=== PATIENT | female | born 1925 | race Caucasian/White ===

== ENCOUNTER 2016-10-18 01:22 | Emergency (ER) | payer OTHER ==
[~2016-10-18] VITALS: Ht 147.3 cm; Wt 39.7 kg
[~2016-10-18 01:22] MED LIST: ACET1TAB84 PO; AMLO-110 PO; CLR10 PO; CTP/1 PO; METR1GEL3 TOP; PARO1TAB27 PO; PRLSR20 PO
[2016-10-18 01:25] VITALS: TEMP 36.7; Ht 147.3 cm; Wt 39.7 kg
[2016-10-18] MEDS ORDERED: CEPHALEXIN 500MG HOME PACK 1 EA BTL PO ONE (02:00)
[2016-10-18] MEDS ORDERED: CEPH500C PO (02:22)
[2016-10-18] MEDS ORDERED: NORCO 5/325MG HOME PACK PO ONE (02:30)
--- NOTE | 2016-10-18 02:30 | EMERGENCY ROOM VISIT NOTE ---
ED Visit Note First contact with patient: 01:31 I saw the patient in conjunction with Fabricio Walls PA-C. I agree with his decision-making and treatment plan.
[2016-10-18 02:39] VITALS: BP 147/78; PULSE 73; O2SAT 96
--- NOTE | 2016-10-18 05:04 | EMERGENCY ROOM VISIT NOTE ---
History First contact with patient: :31 Chief Complaint: LEG PAIN,LEG INJURY Stated Complaint: SEVERE LEG PAIN,LARGE BUMP WITH WHITE PUSS History of Present Illness The patient is a 89 year old female who presents to the Emergency Room with complaints of leg pain for the past few hours. The patient is accompanied by her daughter, whom she lives with. The patient has been feeling well all day, but reported to her daughter that she is having some pain in her left ankle tonight. The ankle is reddened with a large white bump on the outside of the ankle area. The patient is usually healthy and is not diabetic. She has not had difficulty with ambulation. No falls or injuries. She has not had a fever. The patient states that her discomfort is currently a 5/10. Review of Systems More than 10 systems were reviewed and otherwise negative with the exception of history of present illness. Past Medical/Surgical History Medical Problems: (1) Chronic Kidney Disease, Unspecified (2) Esophageal Reflux (3) Headache (4) Open Wound Of Scalp (5) Rectal & Anal Hemorrhage (6) Rosacea (7) Sprain Lumbar Region (8) Varicose Vein Of Leg Nos Family History Diabetes mellitus Social History Smoking Status: Never Smoker Alcohol Use: none Housing Status: lives with family Occupation Status: unemployed Current/Historical Medications Scheduled Amlodipine (Norvasc), 5 MG PO DAILY Cephalexin Monohydrate (Keflex), 500 MG PO QID Clonidine Hcl (Catapres), 0.1 MG PO BID Loratadine (Claritin), 10 MG PO DAILY PRN Metronidazole Hcl (Metrogel), 1 APPLN TOP DAILY PRN Omeprazole (Prilosec), 20 MG PO DAILY Paroxetine (Paxil), 20 MG PO DAILY Scheduled PRN Acetaminophen (Tylenol Arthritis Ext Rel), 650 MG PO Q8H PRN for Pain Allergies Coded Allergies: Aspirin (Verified Allergy, Unknown, 09/18/15) ASA=NAUSEA NSAIDs (Verified Allergy, Unknown, `, 09/18/15) Physical Exam Vital Signs Date Time Temp Pulse Resp B/P (MAP) Pulse Ox O2 Delivery O2 Flow Rate FiO2 10/18/16 02:39 73 20 147/78 96 10/18/16 01:25 36.7 75 20 116/66 97 Room Air Pain Rating (0-10): 4.0 Physical Exam VITALS: Vitals are noted on the nurse's note and reviewed by myself. Vital signs stable. GENERAL: Well-developed, well-nourished, elderly female, who is in no acute distress and resting comfortably. Patient is cooperative with the examination. HEAD: Normocephalic atraumatic. HEART: Regular rate and rhythm with systolic murmur LUNGS: Clear to auscultation bilaterally without wheezes, rales or rhonchi. No retractions or accessory muscle use. SKIN: The skin was with an area of cellulitis along the lateral aspect of the distal left fibula measuring approximately 4 x 5 cm in dimension. There is a central abscess that appears fluctuant. The patient does have some tenderness along this distribution. There is no lymphangitic streaking. Neurovascular status is intact distally. This does not appear to involve the ankle joint itself. Medical Decision & Procedures Medications Administered Medications (Trade) Dose Ordered Sig/Kimmy Route Start Time Stop Time Status Last Admin Dose Admin Cephalexin Monohydrate (Keflex 500MG Home Pack) 1 homepack NOW ONCE PO 10/18/16 02:00 10/18/16 02:01 DC 10/18/16 02:09 1 HOMEPACK Acetaminophen/ Hydrocodone Bitart ([place] 5/325mg Home Pack) 1 homepack UD ONCE PO 10/18/16 02:30 10/18/16 02:31 DC 10/18/16 02:35 1 HOMEPACK ED Course Physical exam and history were performed. Nursing notes and EMR were reviewed. Patient appears to have a small abscess with surrounding cellulitis along the lateral aspect of the left lower leg. I discussed options of care with the patient, who is up-to-date on her tetanus. The skin was prepped with alcohol swabs. Utilizing ethyl chloride and an 18-gauge needle I was able to de-roof the abscess. This did cause purulent drainage to leave the wound, and this was collected for culture. No additional abscess was noted, and the patient tolerated this well. The wound was demarcated with a surgical marker and dressed with a bacitracin dressing. The case was discussed with my attending physician, Dr. White, who also independently evaluated the patient. We will start her on a course of Keflex as she has tolerated this in the past. I do recommend the patient have close follow-up with her primary care physician in the next few days for recheck. The patient does have a good support network at home, and does live with family. The patient and family were asked to return to the emergency department with any new, worsening, or concerning symptoms. I will give the patient a home pack of Vicodin for pain control tonight. The patient rated her discomfort a 4/10 at the time of departure. The chart was completed utilizing [employer] Voice Recognition Software. Grammatical errors, random word insertions, pronoun errors, and incomplete sentences are an occasional consequence of this system due to software limitations, ambient noise, and hardware issues. Any formal questions or concerns about the content, text, or information contained within the body of this dictation should be directly addressed to the provider for clarification. . Medical Decision Differential diagnosis: Etiologies such as cellulitis, abscess, MRSA infection, DVT, necrotizing fasciitis, dermatitis, drug eruption, as well as others were entertained.. Impression Primary Impression: Abscess or cellulitis of ankle Departure Information Dispostion Home / Self-Care Condition GOOD Prescriptions Cephalexin Monohydrate (Keflex) 500 Mg Cap 500 MG PO QID for 7 Days, #28 CAP Prov: Fabricio Walls PA-C 10/18/16 Forms HOME CARE DOCUMENTATION FORM, IMPORTANT VISIT INFORMATION Patient Instructions My [facility] Additional Instructions You were seen and evaluated today on an emergency basis only. This is not a substitute for, or an effort to provide, complete comprehensive medical care. It is not possible to recognize and treat all injuries or illnesses in a single emergency department visit. For this reason it is recommended that you followup with your primary care physician on Saturday for a recheck of your infection. Cephalexin(Keflex) 500mg: Take one pill 4 times daily for 7 days for your skin infection. All antibiotics can cause diarrhea. If this occurs and you feel worse or it does not resolve in 1-2 days follow up with your doctor or return to the Emergency Department as this could be signs of serious underlying problems. Any medication can cause an allergic reaction, stop the pills immediately and return to the ER for rash, hives, breathing difficulties, or swelling. If your infection worsens please seek additional medical care immediately. You are welcome to return to the emergency department anytime with new, worsening, or concerning symptoms.
[2017-01-08] MEDS ORDERED: LPR25 PO (18:32)
[2017-01-08] MEDS ORDERED: ZNT150 PO (18:32)
[2017-01-08] MEDS ORDERED: IPRASOL4 INH (18:32)
== END 2016-10-18 02:42 | disposition home or self-care (01) ==
LOC: C.EDB 01:23
DX: L03.116 Cellulitis of left lower limb (principal); N18.9 Chronic kidney disease, unspecified; K21.9 Gastro-esophageal reflux disease without esophagitis; Z79.899 Other long term (current) drug therapy; Z88.6 Allergy status to analgesic agent; Z88.8 Allergy status to other drugs, medicaments and biological substances; Z83.3 Family history of diabetes mellitus

== ENCOUNTER 2017-01-01 15:23 | Inpatient (IN) | payer OTHER ==
[~2017-01-01] VITALS: Ht 149.9 cm; Wt 38.2 kg
[2017-01-01] MEDS ORDERED: ALBUTEROL 0.083% NEBU SOLN 3 ML VIAL INH STA (15:45)
[2017-01-01 16:06] LABS: BASO % 0.1 %; BASO ABS # 0.01 K/uL (0-0.2); COMPLETE YES; EOS % 0.1 %; HEMATOCRIT 34.6 % (37-47); IG% 0.2 %; LYMPH % 10.2 %; LYMPH ABS # 0.88 K/uL (1.2-3.4); MEAN CELL VOLUME 91.5 fL (80-100); MEAN CORPUSCULAR HEMOGLOBIN 30.2 pg (25-34); MEAN CORPUSCULAR HGB CONC 32.9 g/dl (32-36); MEAN PLATELET VOLUME 9.7 fL (7.4-10.4); MONO % 7.2 %; NEUT % 82.2 %; PLATELET COUNT 253 K/uL (130-400); RED BLOOD COUNT 3.78 M/uL (4.2-5.4); WHITE BLOOD COUNT 8.64 K/uL (4.8-10.8)
--- NOTE | 2017-01-01 16:07 | DIAGNOSTIC IMAGING REPORT ---
CHEST ONE VIEW PORTABLE CLINICAL HISTORY: Respiratory distress. COMPARISON STUDY: 03/01/2010 FINDINGS: The heart is normal in size. There is mild vascular prominence without evidence of overt edema. There are subtle airspace opacities in the right infrahilar region. There are no significant pleural effusions.[ IMPRESSION: 1. Subtle airspace opacities within the right infrahilar region 2. Mild central vascular prominence. No evidence of edema. Electronically signed by: Farhat Armstrong M.D. 01/01/2017 4:06 PM Dictated Date/Time: 01/01/2017 4:04 PM
[2017-01-01 16:16] LABS: PROTHROMBIN TIME (PATIENT) 10.4 SECONDS (9.0-12.0)
[2017-01-01 16:24] LABS: BUN/CREATININE RATIO 14.7 (10-20); CALCIUM 9.3 mg/dl (8.5-10.1); CREATININE 1.3 mg/dl (0.60-1.20); POTASSIUM 3.5 mmol/L (3.5-5.1)
[2017-01-01 16:36] LABS: ALB/GLOB RATIO 0.9 (0.9-2)
[2017-01-01] MEDS ORDERED: ASPIRIN 81 MG CHEW PO STA (16:37)
[2017-01-01] MEDS ORDERED: LEVAQUIN 750MG / 150ML D5W IV STA (16:38)
[2017-01-01] MEDS ORDERED: CEFEPIME IV 1,000 MG in DEXTROSE 5% 100ML 100 ML IV STA (16:53)
[2017-01-01] MEDS ORDERED: *BENZOCAINE/MENTHOL 18 LOZ/1 BOX MT PRN (17:45)
[2017-01-01] MEDS ORDERED: ALUMINUM/MAGNESIUM/SIMETH (MAALOX MAX) 30 ML UDC PO PRN (17:45)
[2017-01-01] MEDS ORDERED: COUGH DROP (SUGAR FREE) LOZ 24 LOZ/1 BOX ONE (17:49)
--- NOTE | 2017-01-01 18:59 | History and Physical ---
History & Physical Date & Time of Service: Jan 01, 2017 at 18:27 Chief Complaint: Difficulty Breathing, Congested, Shakes Primary Care Physician: Myah Barnett M.D. History of Present Illness Source: patient, family This is an 89 year old female with a PMH of HTN, CKD stage 3, depression/anxiety , dementia, GERD presents with acute shortness of breath. As per daughter, who is at bedside, patient was in her usual state of health yesterday (12/31) with no issues to note. She went to sleep without a problem. Woke up this morning with significant chest congestion and cough. As per daughter, she has been afebrile. Does not have issues with swallowing at home. Though there is some underlying dementia, she is fairly independent; performs ADLs. Was seen with Dr. Hidalgo today (01/01) as outpatient due to the productive cough, congestion, shortness of breath. Was given neb treatment with no change in condition, so she was sent to the ER. CXR was done, not showing anything acutely. She was noted to have tachycardia. Denies chest pain. During exam, she had significant cough, but difficulty bringing up sputum. No fevers/chills, no nausea/vomiting. Past Medical/Surgical History Medical Problems: (1) Chronic Kidney Disease, Unspecified Status: Chronic (2) Esophageal Reflux Status: Chronic (3) Headache Status: Resolved (4) Open Wound Of Scalp Status: Resolved (5) Rectal & Anal Hemorrhage Status: Resolved (6) Rosacea Status: Chronic (7) Sprain Lumbar Region Status: Resolved (8) Varicose Vein Of Leg Nos Status: Chronic Family History Diabetes mellitus Social History Smoking Status: Never Smoker Housing status: lives with family Occupational Status: unemployed Immunizations History of Influenza Vaccine: Yes History of Tetanus Vaccine?: YES-2000 History of Pneumococcal: Unknown History of Hepatitis B Vaccine: No Multi-Drug Resistant Organisms History of MDRO: No Allergies Coded Allergies: Aspirin (Verified Allergy, Unknown, 01/01/17) ASA=NAUSEA NSAIDs (Verified Allergy, Unknown, `, 01/01/17) Home Medications Scheduled Amlodipine (Norvasc), 5 MG PO DAILY Clonidine Hcl (Catapres), 0.1 MG PO DAILY Loratadine (Claritin), 10 MG PO DAILY PRN Paroxetine (Paxil), 20 MG PO DAILY Scheduled PRN Acetaminophen (Tylenol Arthritis Ext Rel), 650 MG PO Q8H PRN for Pain Review of Systems Constitutional: No fever, No chills Eyes: No worsening of vision ENT: + sore throat, + trouble swallowing, No nasal symptoms, No tinnitus, No dental problems Respiratory: + cough, + sputum, + shortness of breath, No wheezing, No dyspnea on exertion, No dyspnea at rest, No hemoptysis Cardiovascular: No chest pain, No edema, No palpitations Abdomen: No pain, No nausea, No vomiting, No diarrhea, No constipation, No GI bleeding Musculoskeletal: No joint pain, No muscle pain Genitourinary - Female: No dysuria, No urinary frequency, No urinary urgency, No urinary incontinence, No urinary retention, No hematuria Psychiatric: No depression symptoms Hematologic / Lymphatic: No abnormal bleeding/bruising Integumentary: No rash Allergic / Immunologic: No environmental allergies, No seasonal allergies Physical Exam Vital Signs Date Time Temp Pulse Resp B/P (MAP) Pulse Ox O2 Delivery O2 Flow Rate FiO2 01/01/17 17:30 104 27 141/80 93 Nasal Cannula 4.0 01/01/17 16:59 104 27 146/74 91 Nasal Cannula 4.0 01/01/17 16:15 92 Nasal Cannula 3.0 01/01/17 16:15 92 Nasal Cannula 3.0 01/01/17 16:15 92 Nasal Cannula 3.0 01/01/17 16:15 94 22 137/72 92 Nasal Cannula 3.0 01/01/17 16:12 95 01/01/17 15:32 37.0 96 26 159/71 90 Room Air General Appearance: + moderate distress (respiratory distress), + thin Head: normocephalic, atraumatic ENT: hearing grossly normal Respiratory/Chest: + respiratory distress, + rhonchi Cardiovascular: no murmur, + tachycardia (sinus) Abdomen/GI: normal bowel sounds, non tender, soft Extremities/Musculoskelatal: normal capillary refill, no pedal edema, + pertinent finding (+healing wound at the R lateral ankle) Neurologic/Psych: no motor/sensory deficits, alert, normal mood/affect Skin: normal color Lymphatic: no adenopathy Diagnostics Laboratory Results Results Past 24 Hours Test 01/01/17 15:56 Range/Units White Blood Count 8.64 4.8-10.8 K/uL Red Blood Count 3.78 4.2-5.4 M/uL Hemoglobin 11.4 12.0-16.0 g/dL Hematocrit 34.6 37-47 % Mean Corpuscular Volume 91.5 80-100 fL Mean Corpuscular Hemoglobin 30.2 25-34 pg Mean Corpuscular Hemoglobin Concent 32.9 32-36 g/dl Platelet Count 253 130-400 K/uL Mean Platelet Volume 9.7 7.4-10.4 fL Neutrophils (%) (Auto) 82.2 % Lymphocytes (%) (Auto) 10.2 % Monocytes (%) (Auto) 7.2 % Eosinophils (%) (Auto) 0.1 % Basophils (%) (Auto) 0.1 % Neutrophils # (Auto) 7.10 1.4-6.5 K/uL Lymphocytes # (Auto) 0.88 1.2-3.4 K/uL Monocytes # (Auto) 0.62 0.11-0.59 K/uL Eosinophils # (Auto) 0.01 0-0.5 K/uL Basophils # (Auto) 0.01 0-0.2 K/uL RDW Standard Deviation 47.0 36.4-46.3 fL RDW Coefficient of Variation 14.0 11.5-14.5 % Immature Granulocyte % (Auto) 0.2 % Immature Granulocyte # (Auto) 0.02 0.00-0.02 K/uL Prothrombin Time 10.4 9.0-12.0 SECONDS Prothromb Time International Ratio 1.0 0.9-1.1 Activated Partial Thromboplast Time 25.9 21.0-31.0 SECONDS Partial Thromboplastin Ratio 1.0 D-Dimer 1510 0-500 ug/L FEU Sodium Level 137 136-145 mmol/L Potassium Level 3.5 3.5-5.1 mmol/L Chloride Level 101 98-107 mmol/L Carbon Dioxide Level 26 21-32 mmol/L Anion Gap 10.0 3-11 mmol/L Blood Urea Nitrogen 19 7-18 mg/dl Creatinine 1.30 0.60-1.20 mg/dl Est Creatinine Clear Calc Drug Dose 19.1 ml/min Estimated GFR () 42.1 Estimated GFR (Non- 36.3 BUN/Creatinine Ratio 14.7 10-20 Random Glucose 231 70-99 mg/dl Calcium Level 9.3 8.5-10.1 mg/dl Total Bilirubin 0.7 0.2-1 mg/dl Aspartate Amino Transf (AST/SGOT) 15 15-37 U/L Alanine Aminotransferase (ALT/SGPT) 12 12-78 U/L Alkaline Phosphatase 95 45-117 U/L Troponin I 0.082 0-0.045 ng/ml Pro-B-Type Natriuretic Peptide 4008 0-1800 pg/ml Total Protein 8.0 6.4-8.2 gm/dl Albumin 3.7 3.4-5.0 gm/dl Globulin 4.3 2.5-4.0 gm/dl Albumin/Globulin Ratio 0.9 0.9-2 Diagnostic Radiology CHEST ONE VIEW PORTABLE CLINICAL HISTORY: Respiratory distress. COMPARISON STUDY: 03/01/2010 FINDINGS: The heart is normal in size. There is mild vascular prominence without evidence of overt edema. There are subtle airspace opacities in the right infrahilar region. There are no significant pleural effusions.[ IMPRESSION: 1. Subtle airspace opacities within the right infrahilar region 2. Mild central vascular prominence. No evidence of edema. EKG NSR Nonspecific ST abnormality Impression Assessment and Plan This is an 89 year old female with a PMH of HTN, CKD stage 3, depression/anxiety , dementia, GERD presents with acute shortness of breath Acute Respiratory Failure Likely secondary to Acute Bronchitis CXR Subtle airspace opacities within the right infrahilar region possible bronchitis, vs. aspirational event will consult speech therapy check D-dimer and VQ if positive to r/o PE start Levaquin start low dose prednisone nebulizers as needed Mucinex chest PT; vibration vest IV Zantac started Elevated Troponin possibly secondary to infectious vs. tachycardia trend enzymes check echo CKD stage 3 creatinine is around 1.3, which is probably around baseline HTN Norvasc, Clonidine for now Depression/Anxiety continue Paxil DVT ppx subq heparin FULL CODE VTE Prophylaxis VTE Risk Assessment Done? Y/N: Yes Risk Level: Moderate
[2017-01-01] MEDS ORDERED: LEVOFLOXACIN CONSULT ACTIVE PRN (19:15)
[2017-01-01 20:08] LABS: URINE APPEARANCE CLEAR (CLEAR); URINE BILIRUBIN NEG (NEG); URINE COLOR YELLOW; URINE NITRITE NEG (NEG); URINE PH 6.5 (4.5-7.5); URINE SPECIFIC GRAVITY 1.018 (1.000-1.030); UROBILINOGEN NEG (NEG)
[2017-01-01 20:14] LABS: MANUAL MICROSCOPIC REQUIRED? NO; REVIEW REQ? NO
[2017-01-01] MEDS: LEVALBUTEROL 0.63MG/3 ML NEB INH SCH (21:00)
[2017-01-01] MEDS: GUAIFENESIN 600 MG TABCR PO SCH (21:25)
[2017-01-01] MEDS: RANITIDINE IV 50 MG in DEXTROSE 5% 100ML 100 ML IV SCH (21:25)
[2017-01-01] MEDS: HEPARIN SOD 5000 UNIT/0.5 ML CARP SQ SCH (21:28)
--- NOTE | 2017-01-01 22:04 | EMERGENCY ROOM VISIT NOTE ---
History Report prepared by Javi: Dannielle Teixeira Under the Supervision of: Dr. Kwasi Zavala D.O. First contact with patient: 15:37 Chief Complaint: RESPIRATORY PROBLEMS Stated Complaint: DIFFICULTY BREATHING, CONGESTED, SHAKES History of Present Illness The patient is an 89 year old female who presents to the Emergency Room with complaints of persistent SOB starting this morning. Prior to today, she was feeling well. She woke up this morning with cough, congestion, and shaking. The cough is not productive. She had a breathing treatment this morning which did help. She denies any chest pain, abdominal pain, rhinorrhea, sore throat, fever , headache, nausea, vomiting, or leg swelling. She denies any history of COPD, asthma, or CHF. She denies any history of smoking. She lives with her daughter. She denies any sick contacts. Source of History: patient, family Onset: this morning Position: other Quality: other (SOB) Timing: other (persistent) Associated Symptoms: + cough, No fevers, No headache, No sorethroat, No chest pain, No nausea, No vomiting, No abdominal pain Note: Pt reports congestion, shaking. Pt denies rhinorrhea, leg swelling. Review of Systems See HPI for pertinent positives & negatives. A total of 10 systems reviewed and were otherwise negative. Past Medical & Surgical Medical Problems: (1) Chronic Kidney Disease, Unspecified (2) Esophageal Reflux (3) Headache (4) Open Wound Of Scalp (5) Rectal & Anal Hemorrhage (6) Rosacea (7) Shortness of breath (8) Sprain Lumbar Region (9) Varicose Vein Of Leg Nos Family History Diabetes mellitus Social History Smoking Status: Never Smoker Alcohol Use: none Housing Status: lives with family Occupation Status: unemployed Current/Historical Medications Scheduled Amlodipine (Norvasc), 5 MG PO DAILY Clonidine Hcl (Catapres), 0.1 MG PO DAILY Loratadine (Claritin), 10 MG PO DAILY PRN Paroxetine (Paxil), 20 MG PO DAILY Scheduled PRN Acetaminophen (Tylenol Arthritis Ext Rel), 650 MG PO Q8H PRN for Pain Allergies Coded Allergies: Aspirin (Verified Allergy, Unknown, 01/01/17) ASA=NAUSEA NSAIDs (Verified Allergy, Unknown, `, 01/01/17) Physical Exam Vital Signs Date Time Temp Pulse Resp B/P (MAP) Pulse Ox O2 Delivery O2 Flow Rate FiO2 8/29/17 17:30 104 27 141/80 93 Nasal Cannula 4.0 01/01/17 16:59 104 27 146/74 91 Nasal Cannula 4.0 01/01/17 16:15 92 Nasal Cannula 3.0 01/01/17 16:15 92 Nasal Cannula 3.0 01/01/17 16:15 92 Nasal Cannula 3.0 01/01/17 16:15 94 22 137/72 92 Nasal Cannula 3.0 01/01/17 16:12 95 01/01/17 15:32 37.0 96 26 159/71 90 Room Air Physical Exam GENERAL: sitting up in bed, ill appearing, on nasal cannula with referred upper airway noises. EYE EXAM: normal conjunctiva OROPHARYNX: no exudate, no erythema, lips, buccal mucosa, and tongue normal and mucous membranes are moist NECK: supple, no nuchal rigidity, no adenopathy, non-tender, no JVD LUNGS: Diffuse rhonchi bilaterally. Normal chest wall mechanics HEART: no murmurs, S1 normal and S2 normal ABDOMEN: abdomen soft, non-tender, normo-active bowel sounds, no masses, no rebound or guarding. BACK: Back is symmetrical on inspection and there is no deformity, no midline tenderness, no CVA tenderness. SKIN: no rashes and no bruising UPPER EXTREMITIES: upper extremities are grossly normal. LOWER EXTREMITIES: Calves equal bilaterally. NEURO EXAM: Normal sensorium, cranial nerves II-XII grossly intact, normal speech, no gross weakness of arms, no gross weakness of legs. Medical Decision & Procedures ER Provider Diagnostic Interpretation: Radiology results as stated below per my review and the radiologist's interpretation: CHEST ONE VIEW PORTABLE CLINICAL HISTORY: Respiratory distress. COMPARISON STUDY: 03/01/2010 FINDINGS: The heart is normal in size. There is mild vascular prominence without evidence of overt edema. There are subtle airspace opacities in the right infrahilar region. There are no significant pleural effusions.[ IMPRESSION: 1. Subtle airspace opacities within the right infrahilar region 2. Mild central vascular prominence. No evidence of edema. Electronically signed by: Farhat Armstrong M.D. 01/01/2017 4:06 PM Dictated Date/Time: 01/01/2017 4:04 PM Laboratory Results 01/01/17 15:56 Red Blood Count 3.78, Mean Corpuscular Volume 91.5, Mean Corpuscular Hemoglobin 30.2, Mean Corpuscular Hemoglobin Concent 32.9, Mean Platelet Volume 9.7, Neutrophils (%) (Auto) 82.2, Lymphocytes (%) (Auto) 10.2, Monocytes (%) (Auto) 7.2, Eosinophils (%) (Auto) 0.1, Basophils (%) (Auto) 0.1, Neutrophils # (Auto) 7.10, Lymphocytes # (Auto) 0.88, Monocytes # (Auto) 0.62, Eosinophils # (Auto) 0.01, Basophils # (Auto) 0.01 01/01/17 15:56 Test 01/01/17 15:56 White Blood Count 8.64 K/uL (4.8-10.8) Red Blood Count 3.78 M/uL (4.2-5.4) Hemoglobin 11.4 g/dL (12.0-16.0) Hematocrit 34.6 % (37-47) Mean Corpuscular Volume 91.5 fL (80-100) Mean Corpuscular Hemoglobin 30.2 pg (25-34) Mean Corpuscular Hemoglobin Concent 32.9 g/dl (32-36) Platelet Count 253 K/uL (130-400) Mean Platelet Volume 9.7 fL (7.4-10.4) Neutrophils (%) (Auto) 82.2 % Lymphocytes (%) (Auto) 10.2 % Monocytes (%) (Auto) 7.2 % Eosinophils (%) (Auto) 0.1 % Basophils (%) (Auto) 0.1 % Neutrophils # (Auto) 7.10 K/uL (1.4-6.5) Lymphocytes # (Auto) 0.88 K/uL (1.2-3.4) Monocytes # (Auto) 0.62 K/uL (0.11-0.59) Eosinophils # (Auto) 0.01 K/uL (0-0.5) Basophils # (Auto) 0.01 K/uL (0-0.2) RDW Standard Deviation 47.0 fL (36.4-46.3) RDW Coefficient of Variation 14.0 % (11.5-14.5) Immature Granulocyte % (Auto) 0.2 % Immature Granulocyte # (Auto) 0.02 K/uL (0.00-0.02) Prothrombin Time 10.4 SECONDS (9.0-12.0) Prothromb Time International Ratio 1.0 (0.9-1.1) Activated Partial Thromboplast Time 25.9 SECONDS (21.0-31.0) Partial Thromboplastin Ratio 1.0 D-Dimer 1510 ug/L FEU (0-500) Anion Gap 10.0 mmol/L (3-11) Est Creatinine Clear Calc Drug Dose 19.1 ml/min Estimated GFR () 42.1 Estimated GFR (Non- 36.3 BUN/Creatinine Ratio 14.7 (10-20) Calcium Level 9.3 mg/dl (8.5-10.1) Total Bilirubin 0.7 mg/dl (0.2-1) Aspartate Amino Transf (AST/SGOT) 15 U/L (15-37) Alanine Aminotransferase (ALT/SGPT) 12 U/L (12-78) Alkaline Phosphatase 95 U/L (45-117) Troponin I 0.082 ng/ml (0-0.045) Pro-B-Type Natriuretic Peptide 4008 pg/ml (0-1800) Total Protein 8.0 gm/dl (6.4-8.2) Albumin 3.7 gm/dl (3.4-5.0) Globulin 4.3 gm/dl (2.5-4.0) Albumin/Globulin Ratio 0.9 (0.9-2) Laboratory results per my review. Medications Administered Medications (Trade) Dose Ordered Sig/Kimmy Route Start Time Stop Time Status Last Admin Dose Admin Albuterol Sulfate (Ventolin 0.083% 2.5MG/3ML Neb) 2.5 mg NOW STAT INH 01/01/17 15:45 01/01/17 15:46 DC 01/01/17 16:13 2.5 MG Aspirin (Aspirin Chew) 324 mg NOW STAT PO 01/01/17 16:37 01/01/17 16:38 DC 01/01/17 17:21 324 MG Levofloxacin (Levaquin / D5W) 750 mg NOW STAT IV 01/01/17 16:38 01/01/17 16:39 DC 01/01/17 17:24 750 MG Cefepime HCl 1000 mg/Dextrose 111.3 ml @ 200 mls/hr NOW STAT IV 01/01/17 16:53 01/01/17 17:26 DC 01/01/17 17:43 200 MLS/HR ECG Indication: SOB/dyspnea Rate (beats per minute): 96 Rhythm: sinus rhythm Findings: ST depression (Lateral), other (normal axis) ED Course ED COURSE: Vital signs were reviewed and showed hypoxia, tachycardia. The patients medical record was reviewed The above diagnostic studies were performed and reviewed. ED treatments and interventions as stated above. 1538: The patient was evaluated in room C4. A complete history and physical examination was performed. 1545: Albuterol Sulfate 2.5 mg INH. 1637: Aspirin 324 mg PO. 1638: Levofloxacin 750 mg IV. 1645: Upon reevaluation, the patient is stable.I discussed my findings with the patient and her daughter and they understand and agree with the treatment plan. Based on the patients age, coexisting illnesses, exam and lab findings the decision to treat as an inpatient was made. The patient remained stable while under my care. The patient will be evaluated for further management. 1648: I reviewed the patient's case with RAMÓN Stricklandist. She will evaluate the patient for further management. 1653: Cefepime HCl 1000 mg/Dextrose 111.3 ml @ 200 mls/hr IV. Medical Decision Differential diagnoses includes but is not limited to pneumonia, bronchitis, COPD/Asthma exacerbation, pneumothorax, pulmonary embolism, congestive heart failure, acute coronary syndrome. Patient is an 89-year-old female that presents the ER for cough associated with shortness of breath which started earlier this morning. She notes is associated with sore throat. No fevers. On exam she does have bilateral rhonchi. She is requiring O2 which is new for her. Chest x-ray supports mild infiltrate. Troponin was elevated at 0.08. EKG shows new ST wave changes in the lateral leads. Her symptoms appear to presented fairly quickly. I favor this is cardiac versus infectious but cannot be certain at this time. She is covered with broad-spectrum antibiotics. Aspirin was given. Patient was made to internal medicine for further workup. Medication Reconcilliation Current Medication List: was personally reviewed by me Blood Pressure Screening Patient's blood pressure: Elevated blood pressure Blood pressure disposition: Elevated BP felt to be situational Consults Time Called: 163 Consulting Physician: RAMÓN Strickland hospitalist Returned Call: [phone] I reviewed the patient's case with her. She will evaluate the patient for further management. Impression Primary Impression: NSTEMI (non-ST elevated myocardial infarction) Additional Impressions: Hypoxia Pneumonia Scribe Attestation The scribe's documentation has been prepared under my direction and personally reviewed by me in its entirety. I confirm that the note above accurately reflects all work, treatment, procedures, and medical decision making performed by me. Departure Information Dispostion Being Evaluated By Hospitalist Referrals Myah Barnett M.D. (PCP) Patient Instructions My [facility] Problem Qualifiers Additional Impressions: Pneumonia Pneumonia type: due to unspecified organism Laterality: unspecified laterality Lung location: unspecified part of lung Qualified Codes: J18.9 - Pneumonia, unspecified organism
[2017-01-01 22:07] VITALS: BP 136/77; PULSE 88; TEMP 36.9; O2SAT 92; Ht 149.9 cm; Wt 38.2 kg
[2017-01-01] MEDS ORDERED: ALBUT/IPRATROP 3MG/0.5MG NEB 3 ML VIAL INH STA (23:42)
[2017-01-01] MEDS ORDERED: ALBUT/IPRATROP 3MG/0.5MG NEB 3 ML VIAL INH PRN (23:45)
[2017-01-01] MEDS ORDERED: INSULIN ASPART 100 UNITS/ML 3 ML PEN SC ONE (23:48)
[2017-01-01] MEDS ORDERED: INSULIN GLARGINE SOLOSTAR 100 UNITS/ML 3 ML PEN SC ONE (23:48)
[2017-01-01 23:53] VITALS: PULSE 93; O2SAT 94
[2017-01-02] VITALS (10 sets, daily range): BP systolic 102–167; BP diastolic 59–93; PULSE 69–127; TEMP 36.6–37; O2SAT 90–99
[2017-01-02] MEDS ORDERED: FUROSEMIDE INJ 60 MG in SYRINGE 0 ML IV ONE
[2017-01-02] MEDS ORDERED: METHYLPREDNISOLONE IV 20 MG in SYRINGE 0 ML IV ONE
[2017-01-02] MEDS ORDERED: GLUCOSE 10 TABS/TUBE PO PRN
[2017-01-02] MEDS ORDERED: DEXTROSE 50% 50 ML SYR IV PRN
[2017-01-02] MEDS ORDERED: GLUCOSE 40% GEL 15 GM TUBE PO PRN
[2017-01-02] MEDS ORDERED: GLUCAGON FOR INJ 1 MG VIAL SQ PRN
[2017-01-02 00:13] LABS: ALLEN TEST POS (POS); ARTERIAL BLD GAS O2 SATURATION 88.7 % (90-95); ARTERIAL BLOOD GAS BASE EXCESS 0.6 mEq/L (-9-1.8); ARTERIAL BLOOD GAS HCO3 24 mmol/L (19-24); ARTERIAL BLOOD GAS PO2 58 mm/Hg (80-95); ARTERIAL BLOOD GAS pH 7.46 (7.35-7.45); O2 ADMINISTRATION 15L
[2017-01-02 00:15] LABS: CKMB/CK RATIO 1.4 (0-3.0)
[2017-01-02] MEDS ORDERED: PIPERACILLIN/TAZOBACTAM 4.5 GM/100ML D5W IV STA (01:05)
[2017-01-02] MEDS ORDERED: PIPERACILL/TAZOBAC CONSULT ACTIVE PRN (01:15)
[2017-01-02] MEDS: LEVALBUTEROL 0.63MG/3 ML NEB INH SCH ×4 (01:42→19:34)
[2017-01-02] MEDS: HEPARIN SOD 5000 UNIT/0.5 ML CARP SQ SCH ×3 (05:45→20:34)
[2017-01-02] MEDS: RANITIDINE IV 50 MG in DEXTROSE 5% 100ML 100 ML IV SCH ×3 (05:45→21:58)
--- NOTE | 2017-01-02 06:47 | DIAGNOSTIC IMAGING REPORT ---
CHEST ONE VIEW PORTABLE CLINICAL HISTORY: Respiratory distress. COMPARISON STUDY: Chest radiograph January 01, 2017 oh 4:00 PM. FINDINGS: The lung volumes are normal. No pneumothorax or pleural effusion is present. There is no radiographic evidence of pulmonary edema. Multifocal airspace opacities within the right mid and lower lung have increased. There may be left lower lung airspace opacity is well. IMPRESSION: Interval increase in multifocal right lung airspace opacities which favor pneumonia. Possible left lower lung airspace opacity. Radiographic follow-up to ensure resolution is recommended. Electronically signed by: Steve Tello M.D. 01/02/2017 6:46 AM Dictated Date/Time: 01/02/2017 6:43 AM
[2017-01-02 07:48] LABS: ESTIMATED AVERAGE GLUCOSE 111 mg/dl; HA1C FLAG Normal (Normal)
[2017-01-02 08:22] LABS: HEMATOCRIT 36.1 % (37-47); MEAN CORPUSCULAR HEMOGLOBIN 29.2 pg (25-34); MEAN CORPUSCULAR HGB CONC 32.4 g/dl (32-36); MEAN PLATELET VOLUME 10.1 fL (7.4-10.4); PLATELET COUNT 273 K/uL (130-400); RED BLOOD COUNT 4.01 M/uL (4.2-5.4); WHITE BLOOD COUNT 11.49 K/uL (4.8-10.8)
[2017-01-02 08:47] LABS: BUN/CREATININE RATIO 12.8 (10-20); CALCIUM 9.7 mg/dl (8.5-10.1); CREATININE 1.7 mg/dl (0.60-1.20); MAGNESIUM 1.7 mg/dl (1.8-2.4)
[2017-01-02 09:00] LABS: CKMB/CK RATIO 1.1 (0-3.0)
--- NOTE | 2017-01-02 09:18 | DIAGNOSTIC IMAGING REPORT ---
CHEST 2 VIEWS ROUTINE HISTORY: 89 years-old Female r/o pneumonia COMPARISON: Portable chest radiograph 01/01/2017. TECHNIQUE: Portable upright AP and lateral views of the chest FINDINGS: Cardiac silhouette is within normal limits. There is atherosclerosis of the aorta. No pneumothorax. There is minimal blunting of the costophrenic angle suggesting atelectasis. There is improved aeration of the lung bases with persistent patchy perihilar and bibasilar alveolar opacities. The bones are grossly intact. Degenerative changes involve the lung bases. IMPRESSION: Improved aeration of the lung bases with persistent patchy perihilar and bibasilar alveolar opacities concerning for pneumonia. The above report was generated using voice recognition software. It may contain grammatical, syntax or spelling errors. Electronically signed by: Zoltan Milian M.D. 01/02/2017 9:17 AM Dictated Date/Time: 01/02/2017 9:16 AM
--- NOTE | 2017-01-02 09:24 | DIAGNOSTIC IMAGING REPORT ---
LUNG PERFUSION IMAGING CLINICAL HISTORY: 89 years-old Female with pulmonary hypertension and shortness of breath. Concern for pulmonary thromboembolic disease. COMPARISON STUDY: Chest radiographs of same day at 9:04 AM. 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 Perfusion images of both lungs were obtained following the IV administration of 5.6 mCi of technetium 99m MAA. FINDINGS: A chest x-ray performed showed subsegmental left greater than right bibasilar opacities with minimal blunting of the costophrenic angles. The ventilation portion of the study was not obtained. Large perfusion defects are noted within the all of the basilar segments of the right lower lobe and both segments of the right middle lobe. No large perfusion defects of the left lung are identified. IMPRESSION: 1. Severely limited study secondary to patient not tolerating the aerosolized technetium 99 DPTA. Therefore only the perfusion portion of the study was conducted. 2. Large perfusion defects involving the right lower lobe basilar segments and right middle lobe are indeterminate without the ventilation images to determine if the defects are matched or unmatched. The above report was generated using voice recognition software. It may contain grammatical, syntax or spelling errors. Electronically signed by: Zoltan Milian M.D. 01/02/2017 9:22 AM Dictated Date/Time: 01/02/2017 9:08 AM
[2017-01-02] MEDS: PIPERACILL/TAZOBAC IV 3.375 GM in DEXTROSE 5% 100ML IV SCH ×2 (09:25→19:28)
[2017-01-02] MEDS: GUAIFENESIN 600 MG TABCR PO SCH ×2 (09:26→19:28)
[2017-01-02] MEDS: PAROXETINE 20 MG TAB PO SCH (09:26)
[2017-01-02] MEDS: CLONIDINE HCL 0.1 MG TAB PO SCH (09:26)
[2017-01-02] MEDS: AMLODIPINE BESYLATE 5 MG TAB PO SCH (09:26)
[2017-01-02] MEDS: INSULIN ASPART 100 UNITS/ML 3 ML PEN SC SCH ×4 (09:35→20:26)
[2017-01-02] MEDS ORDERED: POTASSIUM CHLORIDE 10 MEQ TABCR PO STA (11:41)
--- NOTE | 2017-01-02 12:05 | Progress Note ---
Subjective Date of Service: Jan 02, 2017. Subjective Pt evaluation today including: conversation w/ patient, physical exam, lab review, review of studies, review of inpatient medication list Saw/examined the patient in room 286 Continues to have congestion, cough, shortness of breath C/o sore throat secondary to the cough Denies difficulty with swallowing her breakfast, no aspiration as per patient Denies chest pain Denies fevers/chills Problem List Medical Problems: (1) Abscess or cellulitis of ankle Status: Acute (2) Hypoxia Status: Acute (3) NSTEMI (non-ST elevated myocardial infarction) Status: Acute (4) Pneumonia Status: Acute Review of Systems Constitutional: + weakness, No fever, No chills Respiratory: + cough, + sputum, + shortness of breath, No wheezing, No dyspnea on exertion, No dyspnea at rest, No hemoptysis Cardiac: No chest pain, No edema, No palpitations Abdomen: No pain, No nausea, No vomiting, No diarrhea Heme: No abnormal bleeding/bruising Medications Current Inpatient Medications Medications (Trade) Dose Ordered Sig/Kimmy Route Start Time Stop Time Status Last Admin Dose Admin Heparin Sodium (Porcine) (Heparin Sq 5000 Unit/0.5ml) 5,000 unit Q8 SQ 01/01/17 22:00 01/31/17 21:59 01/01/17 21:28 5,000 UNIT Al Hydrox/Mg Hydrox/Simethicone (Maalox Max Susp) 15 ml Q4H PRN PO 01/01/17 17:45 01/31/17 17:44 Levalbuterol (Xopenex 0.63 Mg/ 3 Ml Neb) 0.63 mg Q6R INH 01/01/17 21:00 01/31/17 20:59 01/02/17 07:19 0.63 MG Levofloxacin 500 mg/Prmx 100 ml @ 100 mls/hr Q2D@1600 IV 01/03/17 16:00 01/08/17 15:59 Guaifenesin (Mucinex Contr Rel Tab) 600 mg Q12 PO 01/01/17 21:00 01/31/17 20:59 01/02/17 09:26 600 MG Benzocaine/Menthol (Chloraseptic Felipe) 1 felipe BID PRN MT 01/01/17 17:45 01/31/17 17:44 Amlodipine Besylate (Norvasc Tab) 5 mg DAILY PO 01/02/17 09:00 02/01/17 08:59 01/02/17 09:26 5 MG Clonidine HCl (Catapres Tab) 0.1 mg DAILY PO 01/02/17 09:00 02/01/17 08:59 01/02/17 09:26 0.1 MG Paroxetine HCl (pAXil TAB) 20 mg DAILY PO 01/02/17 09:00 02/01/17 08:59 01/02/17 09:26 20 MG Prednisone (PredniSONE TAB) 20 mg DAILY PO 01/02/17 09:00 02/01/17 08:59 Ranitidine HCl 50 mg/Dextrose 102 ml @ 200 mls/hr Q8H IV 01/01/17 22:00 01/31/17 21:59 01/02/17 05:45 200 MLS/HR Levofloxacin (Consult) 1 ea UD PRN N/A 01/01/17 19:15 01/31/17 19:14 Albuterol/ Ipratropium (Duoneb) 3 ml Q2H PRN INH 01/01/17 23:45 01/31/17 23:44 Insulin Glargine (Lantus Solostar Pen) 10 units HS SC 01/02/17 21:00 02/01/17 20:59 Insulin Aspart (novoLOG ASPART) SLIDING SCALE If C... ACHS SC 01/02/17 06:30 02/01/17 06:29 01/02/17 09:35 2 UNITS Glucose (Glucose 40% Gel) 15-30 GRAMS 15 GRAMS... UD PRN PO 01/02/17 00:00 02/01/17 00:00 Glucose (Glucose Chew Tab) 4-8 Tablets 4 Tabl... UD PRN PO 01/02/17 00:00 02/01/17 00:00 Dextrose (Dextrose 50% 50ML Syringe) 25-50ML OF 50% DW IV FOR... UD PRN IV 01/02/17 00:00 02/01/17 00:00 Glucagon (Glucagon Inj) 1 mg UD PRN SQ 01/02/17 00:00 02/01/17 00:00 Piperacillin Sod/ Tazobactam Sod (Consult) 1 ea UD PRN N/A 01/02/17 01:15 02/01/17 01:14 Piperacillin Sod/ Tazobactam Sod 3.375 gm/Dextrose 115 ml @ 28.75 mls/ hr Q12H IV 01/02/17 08:00 01/09/17 07:59 01/02/17 09:25 28.75 MLS/HR Potassium Chloride 100 ml @ 100 mls/hr Q1H IV 01/02/17 12:00 01/02/17 15:59 Magnesium Sulfate 1 gm/Prmx 100 ml @ 100 mls/hr Q1H IV 01/02/17 11:48 01/02/17 13:47 Objective Vital Signs Date Time Temp Pulse Resp B/P (MAP) Pulse Ox O2 Delivery O2 Flow Rate FiO2 01/02/17 11:37 37.0 89 20 117/68 (84) 90 Nasal Cannula 4.0 01/02/17 08:00 96 Nasal Cannula 4.0 01/02/17 07:20 88 18 96 Nasal Cannula 4.0 01/02/17 05:43 36.7 102 18 142/79 (100) 94 01/02/17 04:00 Oxymask 15.0 01/02/17 01:42 96 20 99 Mask 10.0 01/02/17 01:17 36.7 98 18 167/93 (117) 90 Oxymask 15.0 01/02/17 00:00 Oxymask 15.0 01/01/17 23:53 93 20 94 Mask 15.0 01/01/17 22:07 36.9 88 20 136/77 92 Nasal Cannula 2.0 01/01/17 19:49 111 21 157/72 92 01/01/17 18:30 109 24 117/58 93 Nasal Cannula 4.0 01/01/17 17:30 104 27 141/80 93 Nasal Cannula 4.0 01/01/17 16:59 104 27 146/74 91 Nasal Cannula 4.0 01/01/17 16:15 92 Nasal Cannula 3.0 01/01/17 16:15 92 Nasal Cannula 3.0 01/01/17 16:15 92 Nasal Cannula 3.0 01/01/17 16:15 94 22 137/72 92 Nasal Cannula 3.0 01/01/17 16:12 95 01/01/17 15:32 37.0 96 26 159/71 90 Room Air Physical Exam General Appearance: + mild distress, + cachetic, + thin Respiratory/Chest: + respiratory distress (mild respiratory distress), + rhonchi Cardiovascular: no edema, no murmur, + tachycardia Abdomen: normal bowel sounds, non tender, soft Extremities: normal inspection, no pedal edema Neurologic/Psychiatric: no motor/sensory deficits, alert, normal mood/affect Skin: normal color Laboratory Results Last 24 Hours Test 01/01/17 15:56 01/01/17 19:35 01/01/17 23:28 01/02/17 00:04 White Blood Count 8.64 K/uL Red Blood Count 3.78 M/uL Hemoglobin 11.4 g/dL Hematocrit 34.6 % Mean Corpuscular Volume 91.5 fL Mean Corpuscular Hemoglobin 30.2 pg Mean Corpuscular Hemoglobin Concent 32.9 g/dl Platelet Count 253 K/uL Mean Platelet Volume 9.7 fL Neutrophils (%) (Auto) 82.2 % Lymphocytes (%) (Auto) 10.2 % Monocytes (%) (Auto) 7.2 % Eosinophils (%) (Auto) 0.1 % Basophils (%) (Auto) 0.1 % Neutrophils # (Auto) 7.10 K/uL Lymphocytes # (Auto) 0.88 K/uL Monocytes # (Auto) 0.62 K/uL Eosinophils # (Auto) 0.01 K/uL Basophils # (Auto) 0.01 K/uL RDW Standard Deviation 47.0 fL RDW Coefficient of Variation 14.0 % Immature Granulocyte % (Auto) 0.2 % Immature Granulocyte # (Auto) 0.02 K/uL Prothrombin Time 10.4 SECONDS Prothromb Time International Ratio 1.0 Activated Partial Thromboplast Time 25.9 SECONDS Partial Thromboplastin Ratio 1.0 D-Dimer 1510 ug/L FEU Sodium Level 137 mmol/L Potassium Level 3.5 mmol/L Chloride Level 101 mmol/L Carbon Dioxide Level 26 mmol/L Anion Gap 10.0 mmol/L Blood Urea Nitrogen 19 mg/dl Creatinine 1.30 mg/dl Est Creatinine Clear Calc Drug Dose 19.1 ml/min Estimated GFR () 42.1 Estimated GFR (Non- 36.3 BUN/Creatinine Ratio 14.7 Random Glucose 231 mg/dl Estimated Average Glucose 111 mg/dl Hemoglobin A1c 5.5 % Calcium Level 9.3 mg/dl Total Bilirubin 0.7 mg/dl Aspartate Amino Transf (AST/SGOT) 15 U/L Alanine Aminotransferase (ALT/SGPT) 12 U/L Alkaline Phosphatase 95 U/L Troponin I 0.082 ng/ml 0.217 ng/ml Pro-B-Type Natriuretic Peptide 4008 pg/ml Total Protein 8.0 gm/dl Albumin 3.7 gm/dl Globulin 4.3 gm/dl Albumin/Globulin Ratio 0.9 Urine Color YELLOW Urine Appearance CLEAR Urine pH 6.5 Urine Specific [place]ushing 1.018 Urine Protein 1+ Urine Glucose (UA) 3+ Urine Ketones NEG Urine Occult Blood TRACE Urine Nitrite NEG Urine Bilirubin NEG Urine Urobilinogen NEG Urine Leukocyte Esterase NEG Urine WBC (Auto) 1-5 /hpf Urine RBC (Auto) 0-4 /hpf Urine Hyaline Casts (Auto) 0 /lpf Urine Epithelial Cells (Auto) 5-10 /lpf Urine Bacteria (Auto) NEG Total Creatine Kinase 122 U/L Creatine Kinase MB 1.7 ng/ml Creatine Kinase MB Ratio 1.4 Arterial Blood pH 7.46 Arterial Blood Partial Pressure CO2 35 mmHg Arterial Blood Partial Pressure O2 58 mm/Hg Arterial Blood HCO3 24 mmol/L Arterial Blood Oxygen Saturation 88.7 % Arterial Blood Base Excess 0.6 mEq/L Arterial Blood Gas Delivery 15L Noe Test POS Test 01/02/17 00:30 01/02/17 07:41 01/02/17 07:53 01/02/17 08:08 Bedside Glucose 171 mg/dl 159 mg/dl Creatine Kinase MB Ratio 1.1 White Blood Count 11.49 K/uL Red Blood Count 4.01 M/uL Hemoglobin 11.7 g/dL Hematocrit 36.1 % Mean Corpuscular Volume 90.0 fL Mean Corpuscular Hemoglobin 29.2 pg Mean Corpuscular Hemoglobin Concent 32.4 g/dl RDW Standard Deviation 46.1 fL RDW Coefficient of Variation 13.9 % Platelet Count 273 K/uL Mean Platelet Volume 10.1 fL Sodium Level 135 mmol/L Potassium Level 3.0 mmol/L Chloride Level 96 mmol/L Carbon Dioxide Level 26 mmol/L Anion Gap 13.0 mmol/L Blood Urea Nitrogen 22 mg/dl Creatinine 1.70 mg/dl Est Creatinine Clear Calc Drug Dose 13.9 ml/min Estimated GFR () 30.5 Estimated GFR (Non- 26.3 BUN/Creatinine Ratio 12.8 Random Glucose 161 mg/dl Calcium Level 9.7 mg/dl Magnesium Level 1.7 mg/dl Total Creatine Kinase 291 U/L Creatine Kinase MB 3.2 ng/ml Troponin I 0.549 ng/ml Assessment and Plan This is an 89 year old female with a PMH of HTN, CKD stage 3, depression/anxiety , dementia, GERD presents with acute shortness of breath Acute Respiratory Failure Likely secondary to Acute Bronchitis vs. Pneumonia 01/02 repeat imaging suggests possible pneumonia Zosyn was added to the regimen overnight due to excessive coughing speech evaluation pending V/Q scan unfortunately could not be done due to excessive coughing low dose prednisone nebulizers as needed Mucinex chest PT; vibration vest 01/01 CXR Subtle airspace opacities within the right infrahilar region possible bronchitis, vs. aspirational event will consult speech therapy check D-dimer and VQ if positive to r/o PE start Levaquin start low dose prednisone nebulizers as needed Mucinex chest PT; vibration vest IV Zantac started Elevated Troponin, likely Demand Ischemia unfortunately, her cardiac enzymes are trending up echo is pending consulted cardiology for further input; for now, we will treat underlying cause including treating pneumonia SAYRA superimposed on CKD stage 3 creatinine up to 1.7 likely secondary from Lasix use last evening hold diuretics for now and monitor kidney function she has good PO intake HTN Norvasc, Clonidine Depression/Anxiety continue Paxil DVT ppx subq heparin FULL CODE - discussed with patient and patient's daughter
--- NOTE | 2017-01-02 12:06 | ECHOCARDIOGRAM REPORT ---
*NOTICE TO RECEIVING CONSTITUTION PARTY AGENCY This information is strictly Confidential and protected under [place] law. [place] law prohibits you from making any further disclosure of this information unless further disclosure is expressly permitted by the written consent of the person to whom it pertains or is authorized by law. A general authorization for the release of medical or other information is not sufficient for this purpose. Hospital accepts no responsibility if the information is made available to any other person, INCLUDING THE PATIENT. Interpretation Summary * Name: ALIE KAMARA Study Date: 01/02/2017 06:34 AM BP: 142/79 mmHg * Patient Location: .[facility]\S\N286\S\2 HR: 88 * : 1925 (M/d/yyyy) Gender: Female Height: 59 in * Age: 89 yrs Ethnicity: [place] Weight: 90 lb * Ordering Physician: Elsie Cartagena * Referring Physician: Self, Referred * Performed By: Indira Hutton RDCS * * Reason For Study: SOB R/O CHF * BSA: 1.3 m2 * -- Conclusions -- * The left ventricle is normal in size. * There is mild concentric left ventricular hypertrophy. * No regional wall motion abnormalities noted. * Left ventricular systolic function is normal. * Ejection Fraction = 65-70%. * Aortic valve sclerosis moderate, without significant aortic valvular stenosis. * There is mild to moderate mitral regurgitation. * There is moderate tricuspid regurgitation. * Right ventricular systolic pressure is elevated at 40-50mmHg. Procedure Details * A complete two-dimensional transthoracic echocardiogram was performed (2D, M-mode, Doppler and color flow Doppler). Left Ventricle * The left ventricle is normal in size. * There is mild concentric left ventricular hypertrophy. * Ejection Fraction = 65-70%. * Left ventricular systolic function is normal. * No regional wall motion abnormalities noted. Right Ventricle * The right ventricle is normal in size and function. Atria * The left atrium is mildly dilated. * Right atrial size is normal. * No ASD detected; PFO is not assessed. Mitral Valve * The mitral valve anatomy is normal. * There is no mitral valve stenosis. * There is mild to moderate mitral regurgitation. Tricuspid Valve * The tricuspid valve is not well visualized, but is grossly normal. * There is no tricuspid stenosis. * There is moderate tricuspid regurgitation. * Right ventricular systolic pressure is elevated at 40-50mmHg. Aortic Valve * The aortic valve is trileaflet. * Aortic valve sclerosis moderate, without significant aortic valvular stenosis. * Trace aortic regurgitation. Pulmonic Valve * The pulmonic valve is not well visualized. Great Vessels * The aortic root is normal size. Pericardium/Pleural * There is no pericardial effusion. Great Vessels * Normal inferior vena cava diameter and respiratory variation suggests normal central venous pressure. MMode 2D Measurements and Calculations IVSd 0.80 cm IVSs 1.4 cm LVIDd 4.3 cm LVIDs 3.0 cm LVPWd 0.92 cm LVPWs 1.3 cm IVS/LVPW 0.88 FS 30.5 % EDV(Teich) 81.9 ml ESV(Teich) 34.2 ml EF(Teich) 58.3 % EDV(cubed) 78.1 ml ESV(cubed) 26.2 ml EF(cubed) 66.4 % % IVS thick 77.6 % % LVPW thick 38.5 % LV mass(C)d 114.9 grams LV mass(C)dI 87.5 grams/m\S\2 LV mass(C)s 130.3 grams LV mass(C)sI 99.2 grams/m\S\2 SV(Teich) 47.7 ml SI(Teich) 36.3 ml/m\S\2 SV(cubed) 51.9 ml SI(cubed) 39.5 ml/m\S\2 Ao root diam 2.8 cm Ao root area 6.0 cm\S\2 LA dimension 2.6 cm LA/Ao 0.93 LVAd ap4 18.2 cm\S\2 LVLd ap4 6.0 cm EDV(MOD-sp4) 47.0 ml EDV(sp4-el) 46.5 ml LVAs ap4 10.1 cm\S\2 LVLs ap4 4.8 cm ESV(MOD-sp4) 19.2 ml ESV(sp4-el) 18.2 ml EF(MOD-sp4) 59.1 % EF(sp4-el) 60.9 % LVAd ap2 17.4 cm\S\2 LVLd ap2 6.0 cm EDV(MOD-sp2) 44.4 ml EDV(sp2-el) 42.6 ml LVAs ap2 10.2 cm\S\2 LVLs ap2 5.3 cm ESV(MOD-sp2) 19.1 ml ESV(sp2-el) 16.6 ml EF(MOD-sp2) 57.0 % EF(sp2-el) 61.0 % LVLd %diff 0.31 % EDV(MOD-bp) 45.4 ml LVLs %diff 9.8 % ESV(MOD-bp) 19.4 ml EF(MOD-bp) 57.3 % SV(MOD-sp4) 27.8 ml SI(MOD-sp4) 21.1 ml/m\S\2 SV(MOD-sp2) 25.3 ml SI(MOD-sp2) 19.3 ml/m\S\2 SV(MOD-bp) 26.0 ml SI(MOD-bp) 19.8 ml/m\S\2 SV(sp4-el) 28.3 ml SI(sp4-el) 21.6 ml/m\S\2 SV(sp2-el) 26.0 ml SI(sp2-el) 19.8 ml/m\S\2 Doppler Measurements and Calculations MV E max valoire 82.0 cm/sec MV A max valorie 43.7 cm/sec MV E/A 1.9 MV dec time 0.17 sec Ao V2 max 109.5 cm/sec Ao max PG 4.8 mmHg Ao max PG (full) 2.3 mmHg AI max valorie 307.4 cm/sec AI max PG 37.8 mmHg AI dec slope 184.0 cm/sec\S\2 AI P1/2t 489.4 msec LV V1 max PG 2.5 mmHg LV V1 max 79.1 cm/sec TR max valorie 291.1 cm/sec
[2017-01-02] MEDS ORDERED: METOPROLOL TARTRATE 25 MG TAB PO ONE (12:34)
[2017-01-02] MEDS: POTASSIUM CHLR 10 MEQ / WTR 10 MEQ IV SCH ×4 (12:43→16:28)
[2017-01-02] MEDS: MAGNESIUM SULFATE 1GM / D5W 1 GM in PREMIXED IN D5W 100 ML IV SCH ×2 (12:43→13:43)
--- NOTE | 2017-01-02 13:31 | CARDIOLOGY CONSULTATION ---
DATE OF CONSULTATION: 01/02/2017 DATE OF CONSULTATION: 01/02/2017 REFERRING: Dr. Cartagena. PRIMARY CARE PHYSICIAN: Dr. Barnett. INDICATIONS: Hypoxia, elevated troponin. 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 The patient has a history in addition to above, chronic renal insufficiency, gastroesophageal reflux. The patient per review of records with patient unable to offer any attributable history was noted to have acute onset of cough and shortness of breath on date of admission. She was found to be hypoxic and tachycardic in the Emergency Room. Since admission troponins have trended upward. She is referred now for further evaluation. Since admission evaluation has included in addition to above, serial cardiac enzymes, D-dimer which was significantly elevated at 1510 and ventilation perfusion scan with large perfusion defects noted in the right lower lobe with poor ventilation quality on the ventilatory study. Chest x-ray is clear. The patient is unable to offer any additional information. ALLERGIES: ASPIRIN, NONSTEROIDALS. MEDICATIONS PRIOR TO HOSPITALIZATION: Amlodipine 5 mg per day, clonidine 0.1 mg q. day, loratadine 10 mg q. day, paroxetine 20 mg p.o. q. day. PAST SURGICAL HISTORY: Per records is notable for hemorrhoidectomy in 2000, prior history of tubal ligation, remote history of venous stripping, TMJ arthroplasty 1995, rectocele repair in 1997. FAMILY HISTORY: Noncontributory. SOCIAL HISTORY: The patient is unable to offer additional information but per records is a nonsmoker, nondrinker. PHYSICAL EXAMINATION: GENERAL: The patient is a pleasant, age-appropriate female, moderate cough but unable to offer any additional complaints, feels "top of the world". VITAL SIGNS: Heart rate is 89, blood pressure is 117/68, O2 saturations 90% on 4 liters nasal cannula. HEAD, EYES, EARS, NOSE, AND THROAT EXAMINATION: Normocephalic, atraumatic. NECK: Thin. LUNGS: Reveal coarse rhonchorous sounds anteriorly, right greater than left. CARDIOVASCULAR EXAMINATION: Regular. There is no audible gallop. There is a grade 1/6 systolic murmur. ABDOMEN: Soft, no hepatojugular reflux. EXTREMITIES: Without cyanosis or clubbing. Legs are thin. There is no palpable cord or Homans sign. NEUROLOGIC: The patient is alert but disoriented to person and place. LABORATORY DATA: D-dimer on presentation was 1510. PT and PTT are normal. Sodium is 135, potassium is 3.0, chloride is 96, bicarb is 26, BUN is 22, creatinine is 1.7. Arterial blood gas on presentation revealed significant hypoxia. White cell count is 11.4, hemoglobin is 11.7. VQ scan as described ventilatory portion of the study was nondiagnostic. Perfusion study demonstrated a large right lower lobe basilar and middle lobe perfusion abnormality. Chest x-ray reveals no overt infiltrate or edema. Echocardiogram demonstrates hyperdynamic left ventricular systolic function. EKGs on presentation revealed sinus rhythm with nonspecific ST segment changes. Repeat currently at my request reveals sinus rhythm with nonspecific ST segment changes as well. Echocardiogram today demonstrates mild left ventricular hypertrophy with hyperdynamic LV function. EF 65-70% with no wall motion abnormalities, aortic sclerosis, mild to moderate mitral and tricuspid insufficiency, elevated pulmonary pressures to a mild decrease. IMPRESSION: An 89-year-old female with chronic dementia, hypertension, presented with acute cough, shortness of breath, hypoxia. Chest x-ray reveals questionable mild infiltrates. On VQ scan; however, suggestive of perfusion abnormalities with elevated troponin, hyperdynamic LV function and nonspecific ST segment changes on EKG. Would be concerned regarding presence of possible pulmonary embolus. Will add low dose beta marino for heart rate control. There remains a concern that this may be possibly due to underlying ischemic heart disease, though EKGs, echocardiogram makes this less likely. Would recommend supplementing potassium and magnesium as already ordered. MTDD
--- NOTE | 2017-01-02 14:23 | Clinical Documentation Query ---
CLINICAL DOCUMENTATION QUERY QUERY 1 OF 2 89 year old female with a PMH of HTN, CKD stage 3, depression/anxiety, dementia, GERD presents with acute shortness of breath In your clinical opinion is this patient being managed for: ( X ) Aspiration pneumonia, POA ( ) Not Agree ( ) Other explanation of clinical findings (Please Explain) ( ) Unable to determine (Please Define) ( ) Need to Discuss The medical record reflects the following clinical findings, treatment, and risk factors. Clinical Indicators: CXR: subtle opacities right infrahilar region; SOB; cough, rhonchi Treatment: Zosyn, O2, speech therapy evaluation pending Risk Factors: Age, dementia, cough QUERY 2 OF 2 In your clinical opinion is this patient being managed for: ( ) Encephalopathy ( X ) Not Agree ( ) Other explanation of clinical findings (Please Explain) ( ) Unable to determine (Please Define) ( ) Need to Discuss The medical record reflects the following clinical findings, treatment, and risk factors. Clinical Indicators: Hypoxia and confusion event; SPO2 (74% on 2L NC) and documented confused status. Now AAO x 4 Treatment: O2 15L Oxymask, suction, monitor, Risk Factors: Age, Respiratory failure, dementia Please clarify and document your clinical opinion in the progress notes and discharge summary. Terms such as "probable", "suspected", "likely", "questionable", "possible", or "still to be ruled out" are acceptable. IF IN AGREEMENT, YOU MUST DOCUMENT ABOVE DIAGNOSTIC STATEMENT IN DAILY PROGRESS NOTES AND DISCHARGE SUMMARY. This document is not part of the patient's record. Thank You, Elizabeth Vazquez RN [phone]
--- NOTE | 2017-01-02 14:53 | DIAGNOSTIC IMAGING REPORT ---
ULTRASOUND VENOUS DOPPLER LWR EXT BILA CLINICAL HISTORY: Leg swelling SHORTNESS OF BREATH COMPARISON STUDY: No previous studies for comparison. FINDINGS: Real-time and color flow Doppler imaging were performed. Flow was seen within the femoral, popliteal and calf veins with no intraluminal thrombus demonstrated. The saphenous vein is patent. IMPRESSION: No evidence of lower extremity DVT. Electronically signed by: Farhat Armstrong M.D. 01/02/2017 2:51 PM Dictated Date/Time: 01/02/2017 2:51 PM
--- NOTE | 2017-01-02 15:16 | DIAGNOSTIC IMAGING REPORT ---
VIDEO SWALLOW HISTORY: Shortness of breath. Possible aspiration bilateral pneumonia TECHNIQUE: Video fluoroscopic evaluation of swallowing was performed in the AP and lateral projections by the speech pathology staff. The patient is fed nectar-thick and thin liquid barium, and barium pudding. FLUOROSCOPY TIME: 1.4 minutes. NUMBER OF FLUOROSCOPY IMAGES: 0 COMPARISON STUDY: None. FINDINGS: With swallowing thin liquid barium via teaspoon there was aspiration. When swallowing thin barium via cup there was aspiration with a cough reflex. When swallowing pudding, there was aspiration. When swallowing nectar thick liquids, there was aspiration. IMPRESSION: 1. Aspiration of thin liquids, pudding, and nectar thick liquids. 2. Please see the speech pathologist report for detailed findings and recommendations. Electronically signed by: Farhat Armstrong M.D. 01/02/2017 3:15 PM Dictated Date/Time: 01/02/2017 3:13 PM
--- NOTE | 2017-01-02 16:26 | Palliative Care Consultation ---
Consultation Date of Consultation: Jan 02, 2017. Requesting Physician: Dr. Cartagena Attending Physician: Dr. Cartagena Reason for Consultation: Goals of care History of Present Illness 89 year old female patient with PMH CKD, GERD, Dementia, htn, depression/anxiety ,, presented to hospital with c/o SOB. Admitted with respiratory failure- possible aspiration vs. bronchitis. She has been found on video swallow study to be frankly aspirating all foods. Her dementia is fairly advanced with a BMI of 17, dependent since she's been here in hospital with most care, quite confused (pleasantly), lives at home with her daughter/POA Randi Haley. Palliative care consulted to assist with establishing goals of care in light of this new finding of aspiration. I met with the patient in room 286-2. She is awake, alert and pleasantly confused. States she is feeling well and quite comfortable. No c/o pain or SOB. Limited ROS obtained due to mental status. Does not know where she is or why she is in hospital. However, when I explained the aspiration in simple terms to patient, she was quite able to tell me that she would never want a feeding tube and would rater eat despite the risk of aspiration. She stated, "I've had a wonderful life, and have everything I ever wanted. What else is there? That ( getting feeding tube) just doesn't seem to make sense." Patient gave permission for me to call her daughter and discuss. Code status will need to be addressed as well. I left a message with Randi. Past Medical/Surgical History Medical History: as above Social History Smoking Status: Unknown if Ever Smoked History of Alcohol Use: No Housing Status: lives with family Occupation Status: unemployed Review of Systems ENT: No trouble swallowing (patient is unaware that she is aspirating ) Respiratory: No cough, No shortness of breath Cardiac: No chest pain Abdomen: No pain, No nausea, No vomiting Psychiatric: No anxiety Allergies Coded Allergies: Aspirin (Verified Allergy, Unknown, 01/01/17) ASA=NAUSEA NSAIDs (Verified Allergy, Unknown, `, 01/01/17) Medications Current Inpatient Medications Medications (Trade) Dose Ordered Sig/Kimmy Route Start Time Stop Time Status Last Admin Dose Admin Heparin Sodium (Porcine) (Heparin Sq 5000 Unit/0.5ml) 5,000 unit Q8 SQ 01/01/17 22:00 01/31/17 21:59 01/01/17 21:28 5,000 UNIT Al Hydrox/Mg Hydrox/Simethicone (Maalox Max Susp) 15 ml Q4H PRN PO 01/01/17 17:45 01/31/17 17:44 Levalbuterol (Xopenex 0.63 Mg/ 3 Ml Neb) 0.63 mg Q6R INH 01/01/17 21:00 01/31/17 20:59 01/02/17 07:19 0.63 MG Levofloxacin 500 mg/Prmx 100 ml @ 100 mls/hr Q2D@1600 IV 01/03/17 16:00 01/08/17 15:59 Guaifenesin (Mucinex Contr Rel Tab) 600 mg Q12 PO 01/01/17 21:00 01/31/17 20:59 01/02/17 09:26 600 MG Benzocaine/Menthol (Chloraseptic Felipe) 1 felipe BID PRN MT 01/01/17 17:45 01/31/17 17:44 Amlodipine Besylate (Norvasc Tab) 5 mg DAILY PO 01/02/17 09:00 02/01/17 08:59 01/02/17 09:26 5 MG Clonidine HCl (Catapres Tab) 0.1 mg DAILY PO 01/02/17 09:00 02/01/17 08:59 01/02/17 09:26 0.1 MG Paroxetine HCl (pAXil TAB) 20 mg DAILY PO 01/02/17 09:00 02/01/17 08:59 01/02/17 09:26 20 MG Prednisone (PredniSONE TAB) 20 mg DAILY PO 01/02/17 09:00 02/01/17 08:59 01/02/17 13:44 20 MG Ranitidine HCl 50 mg/Dextrose 102 ml @ 200 mls/hr Q8H IV 01/01/17 22:00 01/31/17 21:59 01/02/17 14:18 200 MLS/HR Levofloxacin (Consult) 1 ea UD PRN N/A 01/01/17 19:15 01/31/17 19:14 Albuterol/ Ipratropium (Duoneb) 3 ml Q2H PRN INH 01/01/17 23:45 01/31/17 23:44 Insulin Glargine (Lantus Solostar Pen) 10 units HS SC 01/02/17 21:00 02/01/17 20:59 Insulin Aspart (novoLOG ASPART) SLIDING SCALE If C... ACHS SC 01/02/17 06:30 02/01/17 06:29 01/02/17 09:35 2 UNITS Glucose (Glucose 40% Gel) 15-30 GRAMS 15 GRAMS... UD PRN PO 01/02/17 00:00 02/01/17 00:00 Glucose (Glucose Chew Tab) 4-8 Tablets 4 Tabl... UD PRN PO 01/02/17 00:00 02/01/17 00:00 Dextrose (Dextrose 50% 50ML Syringe) 25-50ML OF 50% DW IV FOR... UD PRN IV 01/02/17 00:00 02/01/17 00:00 Glucagon (Glucagon Inj) 1 mg UD PRN SQ 01/02/17 00:00 02/01/17 00:00 Piperacillin Sod/ Tazobactam Sod (Consult) 1 ea UD PRN N/A 01/02/17 01:15 02/01/17 01:14 Piperacillin Sod/ Tazobactam Sod 3.375 gm/Dextrose 115 ml @ 28.75 mls/ hr Q12H IV 01/02/17 08:00 01/09/17 07:59 01/02/17 09:25 28.75 MLS/HR Potassium Chloride 100 ml @ 100 mls/hr Q1H IV 01/02/17 12:00 01/02/17 15:59 01/02/17 15:12 100 MLS/HR Metoprolol Tartrate (Lopressor Tab) 12.5 mg BID PO 01/02/17 21:00 02/01/17 20:59 Physical Exam Date Time Temp Pulse Resp B/P (MAP) Pulse Ox O2 Delivery O2 Flow Rate FiO2 01/02/17 12:00 96 Nasal Cannula 4.0 01/02/17 11:37 37.0 89 20 117/68 (84) 90 Nasal Cannula 4.0 01/02/17 08:00 96 Nasal Cannula 4.0 01/02/17 07:20 88 18 96 Nasal Cannula 4.0 01/02/17 05:43 36.7 102 18 142/79 (100) 94 01/02/17 04:00 Oxymask 15.0 01/02/17 01:42 96 20 99 Mask 10.0 01/02/17 01:17 36.7 98 18 167/93 (117) 90 Oxymask 15.0 01/02/17 00:00 Oxymask 15.0 01/01/17 23:53 93 20 94 Mask 15.0 01/01/17 22:07 36.9 88 20 136/77 92 Nasal Cannula 2.0 01/01/17 19:49 111 21 157/72 92 01/01/17 18:30 109 24 117/58 93 Nasal Cannula 4.0 01/01/17 17:30 104 27 141/80 93 Nasal Cannula 4.0 01/01/17 16:59 104 27 146/74 91 Nasal Cannula 4.0 01/01/17 16:15 92 Nasal Cannula 3.0 01/01/17 16:15 92 Nasal Cannula 3.0 01/01/17 16:15 92 Nasal Cannula 3.0 01/01/17 16:15 94 22 137/72 92 Nasal Cannula 3.0 01/01/17 16:12 95 General Appearance: no apparent distress, + cachetic, + thin ENT: hearing grossly normal Neck: supple, no JVD Respiratory: no respiratory distress, no accessory muscle use, + crackles ( bilateral bases), + rhonchi (throughout) Cardiovascular: regular rate, rhythm, no edema, + normal peripheral pulses Abdomen: normal bowel sounds, non tender, soft Neurologic/Psychiatric: alert, normal mood/affect, + disoriented Skin: normal color Laboratory Results Last 24 Hours Test 01/01/17 19:35 01/01/17 23:28 01/02/17 00:04 01/02/17 00:30 Urine Color YELLOW Urine Appearance CLEAR Urine pH 6.5 Urine Specific [place] 1.018 Urine Protein 1+ Urine Glucose (UA) 3+ Urine Ketones NEG Urine Occult Blood TRACE Urine Nitrite NEG Urine Bilirubin NEG Urine Urobilinogen NEG Urine Leukocyte Esterase NEG Urine WBC (Auto) 1-5 /hpf Urine RBC (Auto) 0-4 /hpf Urine Hyaline Casts (Auto) 0 /lpf Urine Epithelial Cells (Auto) 5-10 /lpf Urine Bacteria (Auto) NEG Total Creatine Kinase 122 U/L Creatine Kinase MB 1.7 ng/ml Creatine Kinase MB Ratio 1.4 Troponin I 0.217 ng/ml Arterial Blood pH 7.46 Arterial Blood Partial Pressure CO2 35 mmHg Arterial Blood Partial Pressure O2 58 mm/Hg Arterial Blood HCO3 24 mmol/L Arterial Blood Oxygen Saturation 88.7 % Arterial Blood Base Excess 0.6 mEq/L Arterial Blood Gas Delivery 15L Noe Test POS Bedside Glucose 171 mg/dl Test 01/02/17 07:41 01/02/17 07:53 01/02/17 08:08 01/02/17 11:51 Creatine Kinase MB Ratio 1.1 Bedside Glucose 159 mg/dl 144 mg/dl White Blood Count 11.49 K/uL Red Blood Count 4.01 M/uL Hemoglobin 11.7 g/dL Hematocrit 36.1 % Mean Corpuscular Volume 90.0 fL Mean Corpuscular Hemoglobin 29.2 pg Mean Corpuscular Hemoglobin Concent 32.4 g/dl RDW Standard Deviation 46.1 fL RDW Coefficient of Variation 13.9 % Platelet Count 273 K/uL Mean Platelet Volume 10.1 fL Sodium Level 135 mmol/L Potassium Level 3.0 mmol/L Chloride Level 96 mmol/L Carbon Dioxide Level 26 mmol/L Anion Gap 13.0 mmol/L Blood Urea Nitrogen 22 mg/dl Creatinine 1.70 mg/dl Est Creatinine Clear Calc Drug Dose 13.9 ml/min Estimated GFR () 30.5 Estimated GFR (Non- 26.3 BUN/Creatinine Ratio 12.8 Random Glucose 161 mg/dl Calcium Level 9.7 mg/dl Magnesium Level 1.7 mg/dl Total Creatine Kinase 291 U/L Creatine Kinase MB 3.2 ng/ml Troponin I 0.549 ng/ml Assessment & Plan Palliative Performance Scale: 50 % Problem list: SOB/respiratory failure 2/2 aspiration Vinicio aspiration Low BMI SAYRA Elevated troponin- cardiology following Goals of care (Z51.5) Palliative care recs: -Patient states she wants to continue to eat despite risk of aspiration. Says she has had a good and happy life, would not want a feeding tube. However, patient is quite confused, so I would like daughter to help in making these decisions. -Call was placed to daughter/Randi CHERRY, awaiting return phone call. -Code status and goals of care (specifically feeding) need to be addressed. -Patient from home with daughter. Apparently that is the plan upon discharge. -Further goals to follow after discussion. Thank you kindly for this consult. I will follow as needed.
--- NOTE | 2017-01-02 17:36 | Progress Note ---
Progress Note Date of Service Jan 02, 2017. Progress Note Appreciate speech evaluation - artem aspiration noted to all types of foods and liquids. Due to patient being a full code right now, made her strict NPO. Palliative Care consulted; if patient is made DNR; can feed her. Feeding tube is not appropriate in this 89 year old pleasantly demented frail lady. Will need to call her daughter for further assistance. Troponin elevation and V/Q scan also noted; and possible pulmonary embolism noted as well; no anticoagulation for now due to age and frailty/condition. Will need to discuss this with the patient's daughter as well. Awaiting visit from daughter or call back to the floor.
[2017-01-02] MEDS: METOPROLOL TARTRATE 25 MG TAB PO SCH (19:29)
[2017-01-02] MEDS ORDERED: INSULIN GLARGINE SOLOSTAR 100 UNITS/ML 3 ML PEN SC SCH (21:00)
[2017-01-03] VITALS (11 sets, daily range): BP systolic 113–122; BP diastolic 70–74; PULSE 70–91; TEMP 36.4–37.4; O2SAT 82–95
[2017-01-03] MEDS: LEVALBUTEROL 0.63MG/3 ML NEB INH SCH ×4 (02:02→20:07)
[2017-01-03 05:44] LABS: HEMATOCRIT 33.3 % (37-47); MEAN CELL VOLUME 89.8 fL (80-100); MEAN CORPUSCULAR HEMOGLOBIN 29.4 pg (25-34); MEAN CORPUSCULAR HGB CONC 32.7 g/dl (32-36); PLATELET COUNT 255 K/uL (130-400); RED BLOOD COUNT 3.71 M/uL (4.2-5.4); WHITE BLOOD COUNT 9.99 K/uL (4.8-10.8)
[2017-01-03] MEDS: RANITIDINE IV 50 MG in DEXTROSE 5% 100ML 100 ML IV SCH ×3 (05:47→21:41)
[2017-01-03] MEDS: HEPARIN SOD 5000 UNIT/0.5 ML CARP SQ SCH ×3 (05:51→21:44)
[2017-01-03 06:10] LABS: BUN/CREATININE RATIO 18.7 (10-20); CALCIUM 8.5 mg/dl (8.5-10.1); CREATININE 1.7 mg/dl (0.60-1.20); POTASSIUM 3.5 mmol/L (3.5-5.1)
[2017-01-03] MEDS: INSULIN ASPART 100 UNITS/ML 3 ML PEN SC SCH ×4 (06:30→20:58)
[2017-01-03] MEDS: CLONIDINE HCL 0.1 MG TAB PO SCH (06:57)
[2017-01-03] MEDS: METOPROLOL TARTRATE 25 MG TAB PO SCH ×2 (06:57→20:31)
[2017-01-03] MEDS: AMLODIPINE BESYLATE 5 MG TAB PO SCH (06:58)
[2017-01-03] MEDS: GUAIFENESIN 600 MG TABCR PO SCH ×2 (06:58→20:30)
[2017-01-03] MEDS: PAROXETINE 20 MG TAB PO SCH (06:58)
[2017-01-03] MEDS: PIPERACILL/TAZOBAC IV 3.375 GM in DEXTROSE 5% 100ML IV SCH ×2 (08:55→20:26)
[2017-01-03] MEDS ORDERED: LEVOFLOXACIN / D5W 500 MG in PREMIXED IN D5W 100 ML IV SCH (16:00)
--- NOTE | 2017-01-03 20:55 | Progress Note ---
Subjective Date of Service: Jan 03, 2017. Subjective Pt evaluation today including: conversation w/ patient, physical exam, lab review, review of studies, review of inpatient medication list Saw/examined the patient in room 286 +Pleasantly demented spoke with both, the patient's daughter and patient's son regarding patient's condition discussed patient's aspiration issues - they are both agreeable to DNR status. Patient continues to have sonorous breath sounds/cough/sputum Problem List Medical Problems: (1) Abscess or cellulitis of ankle Status: Acute (2) Hypoxia Status: Acute (3) NSTEMI (non-ST elevated myocardial infarction) Status: Acute (4) Pneumonia Status: Acute Medications Current Inpatient Medications Medications (Trade) Dose Ordered Sig/Kimmy Route Start Time Stop Time Status Last Admin Dose Admin Heparin Sodium (Porcine) (Heparin Sq 5000 Unit/0.5ml) 5,000 unit Q8 SQ 01/01/17 22:00 01/31/17 21:59 01/03/17 14:30 5,000 UNIT Al Hydrox/Mg Hydrox/Simethicone (Maalox Max Susp) 15 ml Q4H PRN PO 01/01/17 17:45 01/31/17 17:44 Levalbuterol (Xopenex 0.63 Mg/ 3 Ml Neb) 0.63 mg Q6R INH 01/01/17 21:00 01/31/17 20:59 01/03/17 20:07 0.63 MG Levofloxacin 500 mg/Prmx 100 ml @ 100 mls/hr Q2D@1600 IV 01/03/17 16:00 01/08/17 15:59 01/03/17 16:01 100 MLS/HR Guaifenesin (Mucinex Contr Rel Tab) 600 mg Q12 PO 01/01/17 21:00 01/31/17 20:59 01/03/17 20:30 600 MG Benzocaine/Menthol (Chloraseptic Felipe) 1 felipe BID PRN MT 01/01/17 17:45 01/31/17 17:44 Amlodipine Besylate (Norvasc Tab) 5 mg DAILY PO 01/02/17 09:00 02/01/17 08:59 01/02/17 09:26 5 MG Clonidine HCl (Catapres Tab) 0.1 mg DAILY PO 01/02/17 09:00 02/01/17 08:59 01/02/17 09:26 0.1 MG Paroxetine HCl (pAXil TAB) 20 mg DAILY PO 01/02/17 09:00 02/01/17 08:59 01/02/17 09:26 20 MG Prednisone (PredniSONE TAB) 20 mg DAILY PO 01/02/17 09:00 02/01/17 08:59 01/02/17 13:44 20 MG Ranitidine HCl 50 mg/Dextrose 102 ml @ 200 mls/hr Q8H IV 01/01/17 22:00 01/31/17 21:59 01/03/17 14:13 200 MLS/HR Levofloxacin (Consult) 1 ea UD PRN N/A 01/01/17 19:15 01/31/17 19:14 Albuterol/ Ipratropium (Duoneb) 3 ml Q2H PRN INH 01/01/17 23:45 01/31/17 23:44 Insulin Aspart (novoLOG ASPART) SLIDING SCALE If C... ACHS SC 01/02/17 06:30 02/01/17 06:29 01/02/17 09:35 2 UNITS Glucose (Glucose 40% Gel) 15-30 GRAMS 15 GRAMS... UD PRN PO 01/02/17 00:00 02/01/17 00:00 Glucose (Glucose Chew Tab) 4-8 Tablets 4 Tabl... UD PRN PO 01/02/17 00:00 02/01/17 00:00 Dextrose (Dextrose 50% 50ML Syringe) 25-50ML OF 50% DW IV FOR... UD PRN IV 01/02/17 00:00 02/01/17 00:00 Glucagon (Glucagon Inj) 1 mg UD PRN SQ 01/02/17 00:00 02/01/17 00:00 Piperacillin Sod/ Tazobactam Sod (Consult) 1 ea UD PRN N/A 01/02/17 01:15 02/01/17 01:14 Piperacillin Sod/ Tazobactam Sod 3.375 gm/Dextrose 115 ml @ 28.75 mls/ hr Q12H IV 01/02/17 08:00 01/09/17 07:59 01/03/17 20:26 28.75 MLS/HR Metoprolol Tartrate (Lopressor Tab) 12.5 mg BID PO 01/02/17 21:00 02/01/17 20:59 01/03/17 20:31 12.5 MG Objective Vital Signs Date Time Temp Pulse Resp B/P (MAP) Pulse Ox O2 Delivery O2 Flow Rate FiO2 01/03/17 20:07 81 16 92 Nasal Cannula 4.0 01/03/17 19:34 36.9 91 18 117/71 (86) 95 4.0 01/03/17 16:00 Nasal Cannula 2.0 01/03/17 15:46 37.0 82 16 117/70 (86) 93 4.0 01/03/17 14:28 76 16 91 Nasal Cannula 4.0 01/03/17 12:10 37.1 79 16 117/74 (88) 95 4.0 01/03/17 08:00 Nasal Cannula 4.0 01/03/17 07:26 80 18 92 Nasal Cannula 4.0 01/03/17 07:17 37.1 70 18 113/71 (85) 94 4.0 01/03/17 04:43 37.4 85 18 122/71 (88) 82 4.0 01/03/17 04:00 Nasal Cannula 4.0 01/03/17 04:00 93 Nasal Cannula 4.0 01/03/17 01:35 80 18 94 Nasal Cannula 4.0 01/03/17 00:00 Nasal Cannula 4.0 01/02/17 23:31 36.6 69 18 102/61 (75) 95 4.0 Physical Exam General Appearance: + mild distress (+cough), + cachetic, + thin, + pertinent finding (+pleasantly demented) Respiratory/Chest: + respiratory distress, + decreased breath sounds, + rhonchi Cardiovascular: regular rate, rhythm Extremities: normal inspection, no pedal edema Neurologic/Psychiatric: no motor/sensory deficits, alert, normal mood/affect Laboratory Results Last 24 Hours Test 01/03/17 05:19 01/03/17 07:40 01/03/17 11:55 01/03/17 18:05 White Blood Count 9.99 K/uL Red Blood Count 3.71 M/uL Hemoglobin 10.9 g/dL Hematocrit 33.3 % Mean Corpuscular Volume 89.8 fL Mean Corpuscular Hemoglobin 29.4 pg Mean Corpuscular Hemoglobin Concent 32.7 g/dl RDW Standard Deviation 46.8 fL RDW Coefficient of Variation 14.1 % Platelet Count 255 K/uL Mean Platelet Volume 10.0 fL Sodium Level 134 mmol/L Potassium Level 3.5 mmol/L Chloride Level 98 mmol/L Carbon Dioxide Level 28 mmol/L Anion Gap 8.0 mmol/L Blood Urea Nitrogen 32 mg/dl Creatinine 1.70 mg/dl Est Creatinine Clear Calc Drug Dose 13.9 ml/min Estimated GFR () 30.5 Estimated GFR (Non- 26.3 BUN/Creatinine Ratio 18.7 Random Glucose 93 mg/dl Calcium Level 8.5 mg/dl Magnesium Level 3.0 mg/dl Bedside Glucose 98 mg/dl 103 mg/dl 119 mg/dl Assessment and Plan This is an 89 year old female with a PMH of HTN, CKD stage 3, depression/anxiety , dementia, GERD presents with acute shortness of breath Acute Respiratory Failure Likely secondary to Aspiration Pneumonia 01/03 for now continue IV Zosyn and Levaquin nebulizers intermittent NT suctioning continue prednisone patient now a DNR status palliative care consulted - as per daughter and son, goal is to get patient home with home hospice For now, poor prognosis - if condition improves, we can discuss getting patient home comfort feeds allowed 01/02 repeat imaging suggests possible pneumonia Zosyn was added to the regimen overnight due to excessive coughing speech evaluation pending V/Q scan unfortunately could not be done due to excessive coughing low dose prednisone nebulizers as needed Mucinex chest PT; vibration vest 01/01 CXR Subtle airspace opacities within the right infrahilar region possible bronchitis, vs. aspirational event will consult speech therapy check D-dimer and VQ if positive to r/o PE start Levaquin start low dose prednisone nebulizers as needed Mucinex chest PT; vibration vest IV Zantac started Elevated Troponin, likely Demand Ischemia unfortunately, her cardiac enzymes are trending up echo is pending consulted cardiology for further input; for now, we will treat underlying cause including treating pneumonia SAYRA superimposed on CKD stage 3 creatinine up to 1.7 likely secondary from Lasix use last evening hold diuretics for now and monitor kidney function she has good PO intake HTN Norvasc, Clonidine Depression/Anxiety continue Paxil DVT ppx subq heparin FULL CODE - discussed with patient and patient's daughter
[2017-01-04] VITALS (9 sets, daily range): BP systolic 117–150; BP diastolic 70–79; PULSE 79–106; TEMP 36.4–36.9; O2SAT 90–98
[2017-01-04] MEDS: LEVALBUTEROL 0.63MG/3 ML NEB INH SCH ×4 (02:10→18:55)
[2017-01-04] MEDS: RANITIDINE IV 50 MG in DEXTROSE 5% 100ML 100 ML IV SCH ×3 (05:53→21:43)
[2017-01-04] MEDS: HEPARIN SOD 5000 UNIT/0.5 ML CARP SQ SCH ×3 (05:59→20:46)
[2017-01-04] MEDS: INSULIN ASPART 100 UNITS/ML 3 ML PEN SC SCH ×4 (06:30→20:45)
[2017-01-04] MEDS: CLONIDINE HCL 0.1 MG TAB PO SCH (08:25)
[2017-01-04] MEDS: METOPROLOL TARTRATE 25 MG TAB PO SCH ×2 (08:27→20:44)
[2017-01-04] MEDS: GUAIFENESIN 600 MG TABCR PO SCH ×2 (08:28→20:44)
[2017-01-04] MEDS: AMLODIPINE BESYLATE 5 MG TAB PO SCH (08:28)
[2017-01-04] MEDS: PAROXETINE 20 MG TAB PO SCH (08:28)
[2017-01-04] MEDS: PIPERACILL/TAZOBAC IV 3.375 GM in DEXTROSE 5% 100ML IV SCH (08:31)
--- NOTE | 2017-01-04 11:56 | Progress Note ---
Subjective Date of Service: Jan 04, 2017. Subjective Pt evaluation today including: conversation w/ patient, physical exam, lab review, review of studies, review of inpatient medication list Saw/examined the patient in room 286-2 She is resting comfortably Less audible rhonchi pleasantly demented Problem List Medical Problems: (1) Abscess or cellulitis of ankle Status: Acute (2) Hypoxia Status: Acute (3) NSTEMI (non-ST elevated myocardial infarction) Status: Acute (4) Pneumonia Status: Acute Medications Current Inpatient Medications Medications (Trade) Dose Ordered Sig/Kimmy Route Start Time Stop Time Status Last Admin Dose Admin Heparin Sodium (Porcine) (Heparin Sq 5000 Unit/0.5ml) 5,000 unit Q8 SQ 01/01/17 22:00 01/31/17 21:59 01/04/17 05:59 5,000 UNIT Al Hydrox/Mg Hydrox/Simethicone (Maalox Max Susp) 15 ml Q4H PRN PO 01/01/17 17:45 01/31/17 17:44 Levalbuterol (Xopenex 0.63 Mg/ 3 Ml Neb) 0.63 mg Q6R INH 01/01/17 21:00 01/31/17 20:59 01/04/17 07:13 0.63 MG Levofloxacin 500 mg/Prmx 100 ml @ 100 mls/hr Q2D@1600 IV 01/03/17 16:00 01/08/17 15:59 01/03/17 16:01 100 MLS/HR Guaifenesin (Mucinex Contr Rel Tab) 600 mg Q12 PO 01/01/17 21:00 01/31/17 20:59 01/03/17 20:30 600 MG Benzocaine/Menthol (Chloraseptic Felipe) 1 felipe BID PRN MT 01/01/17 17:45 01/31/17 17:44 Amlodipine Besylate (Norvasc Tab) 5 mg DAILY PO 01/02/17 09:00 02/01/17 08:59 01/02/17 09:26 5 MG Clonidine HCl (Catapres Tab) 0.1 mg DAILY PO 01/02/17 09:00 02/01/17 08:59 01/02/17 09:26 0.1 MG Paroxetine HCl (pAXil TAB) 20 mg DAILY PO 01/02/17 09:00 02/01/17 08:59 01/02/17 09:26 20 MG Prednisone (PredniSONE TAB) 20 mg DAILY PO 01/02/17 09:00 02/01/17 08:59 01/02/17 13:44 20 MG Ranitidine HCl 50 mg/Dextrose 102 ml @ 200 mls/hr Q8H IV 01/01/17 22:00 01/31/17 21:59 01/04/17 05:53 200 MLS/HR Levofloxacin (Consult) 1 ea UD PRN N/A 01/01/17 19:15 01/31/17 19:14 Albuterol/ Ipratropium (Duoneb) 3 ml Q2H PRN INH 01/01/17 23:45 01/31/17 23:44 Insulin Aspart (novoLOG ASPART) SLIDING SCALE If C... ACHS SC 01/02/17 06:30 02/01/17 06:29 01/02/17 09:35 2 UNITS Glucose (Glucose 40% Gel) 15-30 GRAMS 15 GRAMS... UD PRN PO 01/02/17 00:00 02/01/17 00:00 Glucose (Glucose Chew Tab) 4-8 Tablets 4 Tabl... UD PRN PO 01/02/17 00:00 02/01/17 00:00 Dextrose (Dextrose 50% 50ML Syringe) 25-50ML OF 50% DW IV FOR... UD PRN IV 01/02/17 00:00 02/01/17 00:00 Glucagon (Glucagon Inj) 1 mg UD PRN SQ 01/02/17 00:00 02/01/17 00:00 Piperacillin Sod/ Tazobactam Sod (Consult) 1 ea UD PRN N/A 01/02/17 01:15 02/01/17 01:14 Piperacillin Sod/ Tazobactam Sod 3.375 gm/Dextrose 115 ml @ 28.75 mls/ hr Q12H IV 01/02/17 08:00 01/09/17 07:59 01/04/17 08:31 28.75 MLS/HR Metoprolol Tartrate (Lopressor Tab) 12.5 mg BID PO 01/02/17 21:00 02/01/17 20:59 01/03/17 20:31 12.5 MG Objective Vital Signs Date Time Temp Pulse Resp B/P (MAP) Pulse Ox O2 Delivery O2 Flow Rate FiO2 01/04/17 07:40 36.5 79 16 134/79 (97) 96 4.0 01/04/17 07:16 87 16 94 Nasal Cannula 4.0 01/04/17 04:50 36.4 80 18 117/70 (86) 94 4.0 01/04/17 04:00 Nasal Cannula 4.0 01/04/17 00:00 Nasal Cannula 4.0 01/03/17 23:38 36.4 86 18 119/72 (88) 95 4.0 01/03/17 20:07 81 16 92 Nasal Cannula 4.0 01/03/17 20:00 Nasal Cannula 4.0 01/03/17 19:34 36.9 91 18 117/71 (86) 95 4.0 01/03/17 16:00 Nasal Cannula 4.0 01/03/17 15:46 37.0 82 16 117/70 (86) 93 4.0 01/03/17 14:28 76 16 91 Nasal Cannula 4.0 01/03/17 12:10 37.1 79 16 117/74 (88) 95 4.0 Physical Exam General Appearance: no apparent distress, + cachetic, + thin Respiratory/Chest: no respiratory distress, no accessory muscle use, + rhonchi Cardiovascular: regular rate, rhythm, no edema, no murmur Laboratory Results Last 24 Hours Test 01/03/17 11:55 01/03/17 18:05 01/03/17 20:36 01/04/17 07:24 Bedside Glucose 103 mg/dl 119 mg/dl 105 mg/dl 127 mg/dl Assessment and Plan This is an 89 year old female with a PMH of HTN, CKD stage 3, depression/anxiety , dementia, GERD presents with acute shortness of breath Acute Respiratory Failure Likely secondary to Aspiration Pneumonia 01/04 stop Zosyn and Levaquin start Augmentin low dose prednisone now a DNR palliative care consulted goal is home hospice as per daughter 01/03 for now continue IV Zosyn and Levaquin nebulizers intermittent NT suctioning continue prednisone patient now a DNR status palliative care consulted - as per daughter and son, goal is to get patient home with home hospice For now, poor prognosis - if condition improves, we can discuss getting patient home comfort feeds allowed 01/02 repeat imaging suggests possible pneumonia Zosyn was added to the regimen overnight due to excessive coughing speech evaluation pending V/Q scan unfortunately could not be done due to excessive coughing low dose prednisone nebulizers as needed Mucinex chest PT; vibration vest 01/01 CXR Subtle airspace opacities within the right infrahilar region possible bronchitis, vs. aspirational event will consult speech therapy check D-dimer and VQ if positive to r/o PE start Levaquin start low dose prednisone nebulizers as needed Mucinex chest PT; vibration vest IV Zantac started Elevated Troponin, likely Demand Ischemia unfortunately, her cardiac enzymes are trending up echo is pending consulted cardiology for further input; for now, we will treat underlying cause including treating pneumonia SAYRA superimposed on CKD stage 3 creatinine up to 1.7 likely secondary from Lasix use last evening hold diuretics for now and monitor kidney function HTN Norvasc, Clonidine Depression/Anxiety continue Paxil DVT ppx subq heparin DNR
[2017-01-04] MEDS: AMOXICILLIN/CLAVULANATE TAB 500 MG TAB PO SCH (17:15)
[2017-01-05] VITALS (12 sets, daily range): BP systolic 108–154; BP diastolic 49–82; PULSE 72–90; TEMP 36.1–36.7; O2SAT 92–99
[2017-01-05] MEDS: LEVALBUTEROL 0.63MG/3 ML NEB INH SCH ×4 (02:01→19:05)
[2017-01-05] MEDS: HEPARIN SOD 5000 UNIT/0.5 ML CARP SQ SCH ×3 (05:50→21:46)
[2017-01-05] MEDS: RANITIDINE IV 50 MG in DEXTROSE 5% 100ML 100 ML IV SCH ×3 (05:50→21:44)
[2017-01-05] MEDS: AMOXICILLIN/CLAVULANATE TAB 500 MG TAB PO SCH (08:54)
[2017-01-05] MEDS: PAROXETINE 20 MG TAB PO SCH (08:54)
[2017-01-05] MEDS: METOPROLOL TARTRATE 25 MG TAB PO SCH ×2 (08:55→21:07)
[2017-01-05] MEDS: CLONIDINE HCL 0.1 MG TAB PO SCH (08:56)
[2017-01-05] MEDS: AMLODIPINE BESYLATE 5 MG TAB PO SCH (08:56)
[2017-01-05] MEDS: GUAIFENESIN 600 MG TABCR PO SCH ×2 (08:57→21:07)
[2017-01-05] MEDS: INSULIN ASPART 100 UNITS/ML 3 ML PEN SC SCH ×4 (09:00→21:00)
--- NOTE | 2017-01-05 14:19 | Progress Note ---
Subjective Date of Service: Jan 05, 2017. Subjective Pt evaluation today including: conversation w/ patient, physical exam, lab review, review of studies, review of inpatient medication list Saw/examined the patient in room 286-2 She is comfortable, denies any complaints +dementia Problem List Medical Problems: (1) Abscess or cellulitis of ankle Status: Acute (2) Hypoxia Status: Acute (3) NSTEMI (non-ST elevated myocardial infarction) Status: Acute (4) Pneumonia Status: Acute Review of Systems Respiratory: + cough, + sputum, No shortness of breath Medications Current Inpatient Medications Medications (Trade) Dose Ordered Sig/Kimmy Route Start Time Stop Time Status Last Admin Dose Admin Heparin Sodium (Porcine) (Heparin Sq 5000 Unit/0.5ml) 5,000 unit Q8 SQ 01/01/17 22:00 01/31/17 21:59 01/05/17 05:50 5,000 UNIT Al Hydrox/Mg Hydrox/Simethicone (Maalox Max Susp) 15 ml Q4H PRN PO 01/01/17 17:45 01/31/17 17:44 Levalbuterol (Xopenex 0.63 Mg/ 3 Ml Neb) 0.63 mg Q6R INH 01/01/17 21:00 01/31/17 20:59 01/05/17 07:17 0.63 MG Guaifenesin (Mucinex Contr Rel Tab) 600 mg Q12 PO 01/01/17 21:00 01/31/17 20:59 01/05/17 08:57 600 MG Benzocaine/Menthol (Chloraseptic Felipe) 1 felipe BID PRN MT 01/01/17 17:45 01/31/17 17:44 Amlodipine Besylate (Norvasc Tab) 5 mg DAILY PO 01/02/17 09:00 02/01/17 08:59 01/05/17 08:56 5 MG Clonidine HCl (Catapres Tab) 0.1 mg DAILY PO 01/02/17 09:00 02/01/17 08:59 01/05/17 08:56 0.1 MG Paroxetine HCl (pAXil TAB) 20 mg DAILY PO 01/02/17 09:00 02/01/17 08:59 01/05/17 08:54 20 MG Prednisone (PredniSONE TAB) 20 mg DAILY PO 01/02/17 09:00 02/01/17 08:59 01/05/17 08:54 20 MG Ranitidine HCl 50 mg/Dextrose 102 ml @ 200 mls/hr Q8H IV 01/01/17 22:00 01/31/17 21:59 01/05/17 05:50 200 MLS/HR Albuterol/ Ipratropium (Duoneb) 3 ml Q2H PRN INH 01/01/17 23:45 01/31/17 23:44 Insulin Aspart (novoLOG ASPART) SLIDING SCALE If C... ACHS SC 01/02/17 06:30 02/01/17 06:29 01/05/17 13:16 2 UNITS Glucose (Glucose 40% Gel) 15-30 GRAMS 15 GRAMS... UD PRN PO 01/02/17 00:00 02/01/17 00:00 Glucose (Glucose Chew Tab) 4-8 Tablets 4 Tabl... UD PRN PO 01/02/17 00:00 02/01/17 00:00 Dextrose (Dextrose 50% 50ML Syringe) 25-50ML OF 50% DW IV FOR... UD PRN IV 01/02/17 00:00 02/01/17 00:00 Glucagon (Glucagon Inj) 1 mg UD PRN SQ 01/02/17 00:00 02/01/17 00:00 Metoprolol Tartrate (Lopressor Tab) 12.5 mg BID PO 01/02/17 21:00 02/01/17 20:59 01/05/17 08:55 12.5 MG Amoxicillin/ Clavulanate Potassium (Augmentin Tab) 500 mg BIDM PO 01/04/17 17:00 01/10/17 07:59 01/05/17 08:54 500 MG Objective Vital Signs Date Time Temp Pulse Resp B/P (MAP) Pulse Ox O2 Delivery O2 Flow Rate FiO2 01/05/17 11:14 36.7 81 16 150/79 (102) 95 Nasal Cannula 2.0 01/05/17 08:53 90 146/70 (95) 01/05/17 08:08 Nasal Cannula 4.0 01/05/17 07:29 36.3 76 16 111/49 (69) 99 Nasal Cannula 4.0 01/05/17 07:19 76 16 99 Nasal Cannula 4.0 01/05/17 04:11 Nasal Cannula 4.0 01/05/17 04:00 36.4 72 18 154/82 (106) 99 Nasal Cannula 4.0 01/05/17 02:01 81 16 99 Nasal Cannula 4.0 01/05/17 00:14 Nasal Cannula 4.0 01/04/17 23:01 36.8 82 20 150/79 (102) 97 Nasal Cannula 2.0 01/04/17 20:13 Nasal Cannula 4.0 01/04/17 19:31 36.8 106 18 143/77 (99) 91 Nasal Cannula 2.0 01/04/17 19:12 90 16 90 Nasal Cannula 4.0 01/04/17 16:00 Nasal Cannula 4.0 01/04/17 15:32 36.8 96 18 138/72 (94) 92 Nasal Cannula 2.0 Physical Exam General Appearance: no apparent distress, + cachetic, + thin Respiratory/Chest: + rhonchi Cardiovascular: regular rate, rhythm Laboratory Results Last 24 Hours Test 01/04/17 16:24 01/04/17 20:11 01/05/17 07:23 01/05/17 11:54 Bedside Glucose 112 mg/dl 138 mg/dl 131 mg/dl 170 mg/dl Assessment and Plan This is an 89 year old female with a PMH of HTN, CKD stage 3, depression/anxiety , dementia, GERD presents with acute shortness of breath Acute Respiratory Failure Likely secondary to Aspiration Pneumonia 01/05 at this point, it seems like the family is leaning towards hospice at a facility as they realize they cannot care for the patient at home will stop abx. continue NT suctioning intermittently continue nebulizers PRN 01/04 stop Zosyn and Levaquin start Augmentin low dose prednisone now a DNR palliative care consulted goal is home hospice as per daughter 01/03 for now continue IV Zosyn and Levaquin nebulizers intermittent NT suctioning continue prednisone patient now a DNR status palliative care consulted - as per daughter and son, goal is to get patient home with home hospice For now, poor prognosis - if condition improves, we can discuss getting patient home comfort feeds allowed 01/02 repeat imaging suggests possible pneumonia Zosyn was added to the regimen overnight due to excessive coughing speech evaluation pending V/Q scan unfortunately could not be done due to excessive coughing low dose prednisone nebulizers as needed Mucinex chest PT; vibration vest 01/01 CXR Subtle airspace opacities within the right infrahilar region possible bronchitis, vs. aspirational event will consult speech therapy check D-dimer and VQ if positive to r/o PE start Levaquin start low dose prednisone nebulizers as needed Mucinex chest PT; vibration vest IV Zantac started Elevated Troponin, likely Demand Ischemia unfortunately, her cardiac enzymes are trending up echo is pending consulted cardiology for further input; for now, we will treat underlying cause including treating pneumonia SAYRA superimposed on CKD stage 3 creatinine up to 1.7 likely secondary from Lasix use last evening hold diuretics for now and monitor kidney function HTN Norvasc, Clonidine Depression/Anxiety continue Paxil DVT ppx subq heparin DNR
[2017-01-06] VITALS (9 sets, daily range): BP systolic 114–156; BP diastolic 68–84; PULSE 57–90; TEMP 36.5–36.7; O2SAT 88–100
[2017-01-06] MEDS: LEVALBUTEROL 0.63MG/3 ML NEB INH SCH ×4 (02:09→19:10)
[2017-01-06] MEDS: RANITIDINE IV 50 MG in DEXTROSE 5% 100ML 100 ML IV SCH ×3 (05:59→22:03)
[2017-01-06] MEDS: HEPARIN SOD 5000 UNIT/0.5 ML CARP SQ SCH ×3 (06:05→22:08)
[2017-01-06] MEDS: INSULIN ASPART 100 UNITS/ML 3 ML PEN SC SCH ×4 (06:30→20:51)
[2017-01-06] MEDS: METOPROLOL TARTRATE 25 MG TAB PO SCH ×2 (08:27→20:50)
[2017-01-06] MEDS: CLONIDINE HCL 0.1 MG TAB PO SCH (08:28)
[2017-01-06] MEDS: AMLODIPINE BESYLATE 5 MG TAB PO SCH (08:28)
[2017-01-06] MEDS: GUAIFENESIN 600 MG TABCR PO SCH ×2 (08:28→20:49)
[2017-01-06] MEDS: PAROXETINE 20 MG TAB PO SCH (08:29)
--- NOTE | 2017-01-06 12:51 | Progress Note ---
Subjective Date of Service: Jan 06, 2017. Subjective Pt evaluation today including: conversation w/ patient, physical exam Saw/examined the patient in room 286-2 She's doing well, pleasantly demented less coughing, denies SOB Problem List Medical Problems: (1) Abscess or cellulitis of ankle Status: Acute (2) Hypoxia Status: Acute (3) NSTEMI (non-ST elevated myocardial infarction) Status: Acute (4) Pneumonia Status: Acute Review of Systems difficult to obtain history due to patient's mental status Medications Current Inpatient Medications Medications (Trade) Dose Ordered Sig/Kimmy Route Start Time Stop Time Status Last Admin Dose Admin Heparin Sodium (Porcine) (Heparin Sq 5000 Unit/0.5ml) 5,000 unit Q8 SQ 01/01/17 22:00 01/31/17 21:59 01/06/17 06:05 5,000 UNIT Al Hydrox/Mg Hydrox/Simethicone (Maalox Max Susp) 15 ml Q4H PRN PO 01/01/17 17:45 01/31/17 17:44 Levalbuterol (Xopenex 0.63 Mg/ 3 Ml Neb) 0.63 mg Q6R INH 01/01/17 21:00 01/31/17 20:59 01/06/17 07:15 0.63 MG Guaifenesin (Mucinex Contr Rel Tab) 600 mg Q12 PO 01/01/17 21:00 01/31/17 20:59 01/06/17 08:28 600 MG Benzocaine/Menthol (Chloraseptic Felipe) 1 felipe BID PRN MT 01/01/17 17:45 01/31/17 17:44 Amlodipine Besylate (Norvasc Tab) 5 mg DAILY PO 01/02/17 09:00 02/01/17 08:59 01/06/17 08:28 5 MG Clonidine HCl (Catapres Tab) 0.1 mg DAILY PO 01/02/17 09:00 02/01/17 08:59 01/06/17 08:28 0.1 MG Paroxetine HCl (pAXil TAB) 20 mg DAILY PO 01/02/17 09:00 02/01/17 08:59 01/06/17 08:29 20 MG Prednisone (PredniSONE TAB) 20 mg DAILY PO 01/02/17 09:00 02/01/17 08:59 01/06/17 08:29 20 MG Ranitidine HCl 50 mg/Dextrose 102 ml @ 200 mls/hr Q8H IV 01/01/17 22:00 01/31/17 21:59 01/06/17 05:59 200 MLS/HR Albuterol/ Ipratropium (Duoneb) 3 ml Q2H PRN INH 01/01/17 23:45 01/31/17 23:44 Insulin Aspart (novoLOG ASPART) SLIDING SCALE If C... ACHS SC 01/02/17 06:30 02/01/17 06:29 01/05/17 18:12 1 UNITS Glucose (Glucose 40% Gel) 15-30 GRAMS 15 GRAMS... UD PRN PO 01/02/17 00:00 02/01/17 00:00 Glucose (Glucose Chew Tab) 4-8 Tablets 4 Tabl... UD PRN PO 01/02/17 00:00 02/01/17 00:00 Dextrose (Dextrose 50% 50ML Syringe) 25-50ML OF 50% DW IV FOR... UD PRN IV 01/02/17 00:00 02/01/17 00:00 Glucagon (Glucagon Inj) 1 mg UD PRN SQ 01/02/17 00:00 02/01/17 00:00 Metoprolol Tartrate (Lopressor Tab) 12.5 mg BID PO 01/02/17 21:00 02/01/17 20:59 01/05/17 21:07 12.5 MG Objective Vital Signs Date Time Temp Pulse Resp B/P (MAP) Pulse Ox O2 Delivery O2 Flow Rate FiO2 01/06/17 12:00 Nasal Cannula 4.0 01/06/17 08:00 Nasal Cannula 4.0 01/06/17 07:41 36.5 57 16 147/73 (97) 100 Nasal Cannula 3.0 01/06/17 07:16 69 16 98 Nasal Cannula 3.0 01/06/17 04:21 Nasal Cannula 4.0 01/06/17 04:00 36.6 72 18 147/68 (94) 99 2.0 01/06/17 02:09 69 16 97 Nasal Cannula 3.0 01/06/17 00:00 Nasal Cannula 4.0 01/05/17 23:58 36.6 72 16 123/75 (91) 92 2.0 01/05/17 21:04 82 124/75 (91) 01/05/17 20:00 Nasal Cannula 4.0 01/05/17 19:56 36.1 76 20 108/67 (81) 95 Nasal Cannula 2.0 01/05/17 19:05 79 16 94 Nasal Cannula 2.0 01/05/17 16:05 Nasal Cannula 4.0 01/05/17 15:25 36.5 85 22 113/69 (84) 94 Nasal Cannula 2.0 01/05/17 14:27 82 16 94 Nasal Cannula 2.0 Physical Exam General Appearance: no apparent distress, + cachetic, + thin Respiratory/Chest: + rhonchi Laboratory Results Last 24 Hours Test 01/05/17 16:21 01/05/17 20:35 01/06/17 07:11 01/06/17 11:43 Bedside Glucose 183 mg/dl 172 mg/dl 134 mg/dl 129 mg/dl Assessment and Plan This is an 89 year old female with a PMH of HTN, CKD stage 3, depression/anxiety , dementia, GERD presents with acute shortness of breath Acute Respiratory Failure Likely secondary to Aspiration Pneumonia 01/06 taper prednisone down, continue abx. for now can d/c tele likely hospice facility plan for 1-2 days 01/05 at this point, it seems like the family is leaning towards hospice at a facility as they realize they cannot care for the patient at home will stop abx. continue NT suctioning intermittently continue nebulizers PRN 01/04 stop Zosyn and Levaquin start Augmentin low dose prednisone now a DNR palliative care consulted goal is home hospice as per daughter 01/03 for now continue IV Zosyn and Levaquin nebulizers intermittent NT suctioning continue prednisone patient now a DNR status palliative care consulted - as per daughter and son, goal is to get patient home with home hospice For now, poor prognosis - if condition improves, we can discuss getting patient home comfort feeds allowed 01/02 repeat imaging suggests possible pneumonia Zosyn was added to the regimen overnight due to excessive coughing speech evaluation pending V/Q scan unfortunately could not be done due to excessive coughing low dose prednisone nebulizers as needed Mucinex chest PT; vibration vest 01/01 CXR Subtle airspace opacities within the right infrahilar region possible bronchitis, vs. aspirational event will consult speech therapy check D-dimer and VQ if positive to r/o PE start Levaquin start low dose prednisone nebulizers as needed Mucinex chest PT; vibration vest IV Zantac started Elevated Troponin, likely Demand Ischemia unfortunately, her cardiac enzymes are trending up echo is pending consulted cardiology for further input; for now, we will treat underlying cause including treating pneumonia SAYRA superimposed on CKD stage 3 creatinine up to 1.7 likely secondary from Lasix use last evening hold diuretics for now and monitor kidney function HTN Norvasc, Clonidine Depression/Anxiety continue Paxil DVT ppx subq heparin DNR
[2017-01-07] VITALS (8 sets, daily range): BP systolic 116–153; BP diastolic 59–79; PULSE 64–91; TEMP 36.6–37.1; O2SAT 88–98
[2017-01-07] MEDS: LEVALBUTEROL 0.63MG/3 ML NEB INH SCH ×4 (02:43→20:10)
[2017-01-07] MEDS: HEPARIN SOD 5000 UNIT/0.5 ML CARP SQ SCH ×3 (06:03→21:49)
[2017-01-07] MEDS: RANITIDINE IV 50 MG in DEXTROSE 5% 100ML 100 ML IV SCH ×3 (06:03→21:44)
[2017-01-07] MEDS: INSULIN ASPART 100 UNITS/ML 3 ML PEN SC SCH ×4 (07:58→21:00)
[2017-01-07] MEDS: METOPROLOL TARTRATE 25 MG TAB PO SCH ×2 (08:02→21:20)
[2017-01-07] MEDS: GUAIFENESIN 600 MG TABCR PO SCH ×3 (08:02→21:14)
[2017-01-07] MEDS: PAROXETINE 20 MG TAB PO SCH (08:02)
[2017-01-07] MEDS: AMLODIPINE BESYLATE 5 MG TAB PO SCH (08:02)
[2017-01-07] MEDS: CLONIDINE HCL 0.1 MG TAB PO SCH (08:02)
--- NOTE | 2017-01-07 09:33 | Progress Note ---
Subjective Date of Service: Jan 07, 2017. Subjective Pt evaluation today including: conversation w/ patient, physical exam Saw/examined the patient in room 286-2 +pleasantly demented Her breathing sounds better and does not have sonorous breath sounds/rhonchi currently Problem List Medical Problems: (1) Abscess or cellulitis of ankle Status: Acute (2) Hypoxia Status: Acute (3) NSTEMI (non-ST elevated myocardial infarction) Status: Acute (4) Pneumonia Status: Acute Review of Systems Cannot obtain due to mental status Medications Current Inpatient Medications Medications (Trade) Dose Ordered Sig/Kimmy Route Start Time Stop Time Status Last Admin Dose Admin Heparin Sodium (Porcine) (Heparin Sq 5000 Unit/0.5ml) 5,000 unit Q8 SQ 01/01/17 22:00 01/31/17 21:59 01/07/17 06:03 5,000 UNIT Al Hydrox/Mg Hydrox/Simethicone (Maalox Max Susp) 15 ml Q4H PRN PO 01/01/17 17:45 01/31/17 17:44 Levalbuterol (Xopenex 0.63 Mg/ 3 Ml Neb) 0.63 mg Q6R INH 01/01/17 21:00 01/31/17 20:59 01/07/17 07:33 0.63 MG Guaifenesin (Mucinex Contr Rel Tab) 600 mg Q12 PO 01/01/17 21:00 01/31/17 20:59 01/07/17 08:02 600 MG Benzocaine/Menthol (Chloraseptic Felipe) 1 felipe BID PRN MT 01/01/17 17:45 01/31/17 17:44 Amlodipine Besylate (Norvasc Tab) 5 mg DAILY PO 01/02/17 09:00 02/01/17 08:59 01/07/17 08:02 5 MG Clonidine HCl (Catapres Tab) 0.1 mg DAILY PO 01/02/17 09:00 02/01/17 08:59 01/07/17 08:02 0.1 MG Paroxetine HCl (pAXil TAB) 20 mg DAILY PO 01/02/17 09:00 02/01/17 08:59 01/07/17 08:02 20 MG Ranitidine HCl 50 mg/Dextrose 102 ml @ 200 mls/hr Q8H IV 01/01/17 22:00 01/31/17 21:59 01/07/17 06:03 200 MLS/HR Albuterol/ Ipratropium (Duoneb) 3 ml Q2H PRN INH 01/01/17 23:45 01/31/17 23:44 Insulin Aspart (novoLOG ASPART) SLIDING SCALE If C... ACHS SC 01/02/17 06:30 02/01/17 06:29 01/05/17 18:12 1 UNITS Glucose (Glucose 40% Gel) 15-30 GRAMS 15 GRAMS... UD PRN PO 01/02/17 00:00 02/01/17 00:00 Glucose (Glucose Chew Tab) 4-8 Tablets 4 Tabl... UD PRN PO 01/02/17 00:00 02/01/17 00:00 Dextrose (Dextrose 50% 50ML Syringe) 25-50ML OF 50% DW IV FOR... UD PRN IV 01/02/17 00:00 02/01/17 00:00 Glucagon (Glucagon Inj) 1 mg UD PRN SQ 01/02/17 00:00 02/01/17 00:00 Metoprolol Tartrate (Lopressor Tab) 12.5 mg BID PO 01/02/17 21:00 02/01/17 20:59 01/07/17 08:02 12.5 MG Prednisone (PredniSONE TAB) 10 mg DAILY PO 01/07/17 09:00 02/01/17 08:59 01/07/17 08:02 10 MG Objective Vital Signs Date Time Temp Pulse Resp B/P (MAP) Pulse Ox O2 Delivery O2 Flow Rate FiO2 01/07/17 07:38 74 16 96 Nasal Cannula 2.0 01/07/17 07:24 37.1 73 16 153/79 (103) 94 Nasal Cannula 2.0 01/07/17 02:05 64 16 95 Nasal Cannula 2.0 01/07/17 00:00 36.6 74 18 130/70 (90) 96 2.0 01/07/17 00:00 88 Nasal Cannula 2.0 01/06/17 20:48 78 130/71 (90) 01/06/17 20:00 Nasal Cannula 2.0 01/06/17 19:29 36.5 76 20 156/84 (108) 01/06/17 19:10 87 16 88 Room Air 01/06/17 16:00 Nasal Cannula 4.0 01/06/17 15:46 36.7 78 18 114/70 (85) 95 Nasal Cannula 2.0 01/06/17 13:33 90 16 93 Nasal Cannula 2.0 01/06/17 12:00 Nasal Cannula 4.0 Physical Exam General Appearance: no apparent distress, + cachetic, + thin Respiratory/Chest: no respiratory distress, no accessory muscle use, + rhonchi (minimal rhonchi diffusely, improving) Cardiovascular: regular rate, rhythm Laboratory Results Last 24 Hours Test 01/06/17 11:43 01/06/17 16:18 01/06/17 19:57 01/07/17 07:27 Bedside Glucose 129 mg/dl 171 mg/dl 151 mg/dl 101 mg/dl Assessment and Plan This is an 89 year old female with a PMH of HTN, CKD stage 3, depression/anxiety , dementia, GERD presents with acute shortness of breath Acute Respiratory Failure Likely secondary to Aspiration Pneumonia 01/07 patient is having gross aspiration as per speech therapy as seen on video swallow due to patient's age and overall condition; she would not tolerate feeding tube at this point, hospice is involved and the plan as per family is to discharge to [facility] and likely transition to hospice for now, we can continue low dose steroids, nebulizers PRN intermittent NT suctioning as per RT if in respiratory distress continue Mucinex she is off of antibiotics comfort feeds; enjoys ice cream at night family aware of poor prognosis CM aware of discharge planning, likely on 01/08 Son, Austin, is the POA; Daughter, Randi, lives with patient 01/06 taper prednisone down can d/c tele likely hospice facility plan for 1-2 days 01/05 at this point, it seems like the family is leaning towards hospice at a facility as they realize they cannot care for the patient at home will stop abx. continue NT suctioning intermittently continue nebulizers PRN 01/04 stop Zosyn and Levaquin start Augmentin low dose prednisone now a DNR palliative care consulted goal is home hospice as per daughter 01/03 for now continue IV Zosyn and Levaquin nebulizers intermittent NT suctioning continue prednisone patient now a DNR status palliative care consulted - as per daughter and son, goal is to get patient home with home hospice For now, poor prognosis - if condition improves, we can discuss getting patient home comfort feeds allowed 01/02 repeat imaging suggests possible pneumonia Zosyn was added to the regimen overnight due to excessive coughing speech evaluation pending V/Q scan unfortunately could not be done due to excessive coughing low dose prednisone nebulizers as needed Mucinex chest PT; vibration vest 01/01 CXR Subtle airspace opacities within the right infrahilar region possible bronchitis, vs. aspirational event will consult speech therapy check D-dimer and VQ if positive to r/o PE start Levaquin start low dose prednisone nebulizers as needed Mucinex chest PT; vibration vest IV Zantac started Elevated Troponin, likely Demand Ischemia 01/07 Elevated troponin; as per cardiology, possibly related to a pulmonary embolism unfortunately, due to kidney function; a CTA could not be performed V/Q scan was very limited due to patient not tolerating this patient is not a candidate for anticoagulation due to age, fall risk, etc. will forego treatment - palliative care, plan for hospice in a facility [facility] superimposed on CKD stage 3 likely from dehydration and Lasix use improved appetite now HTN Norvasc, Clonidine Depression/Anxiety continue Paxil DVT ppx subq heparin DNR
[2017-01-08] VITALS (10 sets, daily range): BP systolic 102–131; BP diastolic 58–77; PULSE 59–78; TEMP 36.4–37; O2SAT 95–100
[2017-01-08] MEDS: LEVALBUTEROL 0.63MG/3 ML NEB INH SCH ×4 (02:38→20:29)
[2017-01-08] MEDS: HEPARIN SOD 5000 UNIT/0.5 ML CARP SQ SCH ×3 (06:15→22:13)
[2017-01-08] MEDS: RANITIDINE IV 50 MG in DEXTROSE 5% 100ML 100 ML IV SCH ×2 (06:17→14:04)
[2017-01-08] MEDS: PAROXETINE 20 MG TAB PO SCH (08:03)
[2017-01-08] MEDS: AMLODIPINE BESYLATE 5 MG TAB PO SCH (08:03)
[2017-01-08] MEDS: GUAIFENESIN 600 MG TABCR PO SCH ×2 (08:03→20:53)
[2017-01-08] MEDS: CLONIDINE HCL 0.1 MG TAB PO SCH (08:03)
[2017-01-08] MEDS: METOPROLOL TARTRATE 25 MG TAB PO SCH ×2 (08:04→20:53)
[2017-01-08] MEDS: INSULIN ASPART 100 UNITS/ML 3 ML PEN SC SCH ×4 (08:16→20:47)
--- NOTE | 2017-01-08 18:29 | Progress Note ---
Internal Med Progress Note Date of Service: Jan 08, 2017. Provider Documentation: SUBJECTIVE: continues to have coarse cough , no respiratory distress noted baseline dementia very pleasant OBJECTIVE: Vital Signs-as noted below Exam: General-elderly female, very frail appearing , pleasant , no sign of distress Eyes-sclera ENT-NAd Lungs-coarse breathing sound, + rales at base Heart-regular Abdomen-soft Extremities-no lower ext edema Neuro-baseline dementia, no focal deficit Lab data as noted below. ASSESSMENT & PLAN: RECURRENT ASPIRATION PNEUMONIA /SEVERE DYSPHAGIA patient is having gross aspiration as per speech therapy as seen on video swallow due to patient's age and overall condition; she would not tolerate feeding tube at this point, hospice is involved and the plan as per family is to discharge to [facility] and likely transition to hospice pt will be allow to eat for comfort feed , enjoys ice cream at night she is off of antibiotics comfort feeds; family aware of poor prognosis-plan of care D/w Daughter -Randi at bedside in detail Elevated Troponin, likely Demand Ischemia Elevated troponin; as per cardiology, possibly related to a pulmonary embolism unfortunately, due to kidney function; a CTA could not be performed V/Q scan was very limited due to patient not tolerating this patient is not a candidate for anticoagulation due to age, fall risk, etc. continue supportive care poor prognosis with severe dysphagia , recurrent aspiration -in near future possible - palliative care, transition to hospice in a facility [facility] superimposed on CKD stage 3 due to dehydration resolved HTN Norvasc, Clonidine Depression/Anxiety continue Paxil DVT ppx subq heparin DNR DISPOSITION referral made to [facility] for SNF will be transferred when bed available D/w daughter -will consider Hospice care in future if pt continues to decline clinically social service following for Discharge planning will need transport arrangement Vital Signs: Date Time Temp Pulse Resp B/P (MAP) Pulse Ox O2 Delivery O2 Flow Rate FiO2 01/08/17 16:00 Nasal Cannula 2.0 01/08/17 14:54 36.7 67 18 106/58 (74) 99 Nasal Cannula 2.0 01/08/17 14:13 78 16 96 Nasal Cannula 2.0 01/08/17 11:34 37.0 70 24 131/71 (91) 98 Nasal Cannula 01/08/17 08:00 Nasal Cannula 2.0 01/08/17 07:16 36.8 75 18 129/74 (92) 100 Nasal Cannula 2.0 01/08/17 06:55 76 16 95 Nasal Cannula 2.0 01/08/17 02:39 78 16 96 Nasal Cannula 2.0 01/08/17 00:01 36.5 71 18 131/77 (95) 98 2.0 01/08/17 00:00 Nasal Cannula 2.0 01/07/17 21:22 91 116/69 (85) 01/07/17 20:10 75 16 97 Nasal Cannula 2.0 Lab Results: Results Past 24 Hours Test 01/07/17 20:25 01/08/17 07:33 01/08/17 11:43 01/08/17 16:23 Range/Units Bedside Glucose 105 110 131 117 70-90 mg/dl
[2017-01-08] MEDS ORDERED: IPRASOL4 INH (18:32)
[2017-01-08] MEDS ORDERED: LPR25 PO (18:32)
[2017-01-08] MEDS ORDERED: ZNT150 PO (18:32)
--- NOTE | 2017-01-08 18:42 | Discharge Instructions ---
Discharge Instructions Date of Service Jan 08, 2017. Admission Reason for Admission: Shortness Of Breath Discharge Discharge Diagnosis / Problem: SEVERE DYSPHAGIA /ASPIRATION PENUMONIA / RESPIRATORY FAILURE Discharge Goals Goal(s): Decrease discomfort, Improve disease control, Diagnostic testing, Therapeutic intervention Activity Recommendations Activity Level: Assistance Required Therapies: Physical Therapy, Occupational Therapy, Speech Therapy . Additional Information Patient informed of condition: Yes Advance Directives: Yes DNR: Yes Level of Care: Skilled Communicable Disease: No Prognosis: Deteriorating Louis Catheter: No Instructions / Follow-Up Instructions / Follow-Up FOLLOW UP WITH PHYSICIAN AT [facility] PT IS HIGH RISK FOR ASPIRATION , STRICT ASPIRATION PRECAUTION NEEDS TO BE OBSERVED WILL NEED ASSISTANCE WITH EVERY MEAL Current Hospital Diet Patient's current hospital diet: Regular Diet Discharge Diet Recommended Diet: Regular Diet (ASPIRATION PRECAUTION ) Diet Texture: Dental Soft (bite-sized) Pending Studies Studies pending at discharge: no Laboratory Results Hemoglobin A1c Test 01/01/17 15:56 Range/Units Estimated Average Glucose 111 mg/dl Hemoglobin A1c 5.5 4.5-5.6 % Medical Emergencies . Who to Call and When: Medical Emergencies: If at any time you feel your situation is an emergency, please call 911 immediately. . Non-Emergent Contact Non-Emergency issues call your: Primary Care Provider . . "Provider Documentation" section prepared by Yeni Damon. . Core Measure Problem Core Measures: None
[2017-01-09 02:39] VITALS: PULSE 72; O2SAT 96
[2017-01-09] MEDS: LEVALBUTEROL 0.63MG/3 ML NEB INH SCH ×2 (02:39→06:54)
[2017-01-09] MEDS: HEPARIN SOD 5000 UNIT/0.5 ML CARP SQ SCH (06:18)
[2017-01-09 06:54] VITALS: PULSE 77; O2SAT 96
--- NOTE | 2017-01-09 06:55 | DIAGNOSTIC IMAGING REPORT ---
CHEST ONE VIEW PORTABLE HISTORY: 89 years-old Female aspiration pneumonia aspiration pneumonitis. COMPARISON: Chest radiographs 01/02/2017 TECHNIQUE: Portable upright AP view of the chest FINDINGS: Cardiac silhouette is upper limits of normal. There is atherosclerosis of the aorta. No pneumothorax or pleural effusion. Multifocal alveolar opacities throughout the right lung are seen involving both the right upper and lower lobes. Patchy left basilar opacities are also noted in a subsegmental distribution. The bones are grossly intact. There is mild convex right curvature of the midthoracic spine. IMPRESSION: Multifocal alveolar opacities throughout the right lung and to lesser extent at the left lung base are suspicious for pneumonia and/or aspiration pneumonitis. Follow-up imaging to document resolution recommended. The above report was generated using voice recognition software. It may contain grammatical, syntax or spelling errors. Electronically signed by: Zoltan Milian M.D. 01/09/2017 6:53 AM Dictated Date/Time: 01/09/2017 6:51 AM
[2017-01-09 07:17] VITALS: BP 124/74; PULSE 70; TEMP 37.1; O2SAT 100
[2017-01-09] MEDS: AMLODIPINE BESYLATE 5 MG TAB PO SCH (08:24)
[2017-01-09] MEDS: GUAIFENESIN 600 MG TABCR PO SCH (08:24)
[2017-01-09] MEDS: CLONIDINE HCL 0.1 MG TAB PO SCH (08:24)
[2017-01-09] MEDS: METOPROLOL TARTRATE 25 MG TAB PO SCH (08:47)
[2017-01-09] MEDS: PAROXETINE 20 MG TAB PO SCH (08:47)
[2017-01-09] MEDS ORDERED: RANITIDINE HCL 150 MG TAB PO SCH (09:00)
[2017-01-09] MEDS: INSULIN ASPART 100 UNITS/ML 3 ML PEN SC SCH ×2 (09:21→12:25)
[2017-01-09 13:33] VITALS: BP 124/74; PULSE 70; TEMP 37.1; O2SAT 100
--- NOTE | 2017-01-09 16:18 | Discharge Summary ---
Discharge Summary Date of Service Jan 09, 2017. Discharge Summary Admission Date: Jan 01, 2017 at 17:48 Discharge Date: Jan 08, 2017 Discharge Disposition: senior living facility ([facility] ) Principal Diagnosis: SEVERE DYSPHAGIA /ASPIRATION PNEUMONIA /RESPIRATORY FAILURE Procedures: VIDEO SWALLOW STUDY CHEST XRAY Consultations: PALLIATIVE CARE SPEECH THERAPY Medication Reconciliation New Medications: Ipratropium-Albuterol (Duoneb) 3 Ml Nebu 3 ML INH Q6 PRN for SOB/WHEEZING for 30 Days Metoprolol Tartrate (Lopressor) 25 Mg Tab 12.5 MG PO BID, #60 TAB Ranitidine HCl (Ranitidine HCl) 150 Mg Tab 150 MG PO DAILY, #30 TAB Continued Medications: Acetaminophen (Tylenol Arthritis Ext Rel) 650 Mg Cplt 650 MG PO Q8H PRN for Pain, CAP Amlodipine (Norvasc) 5 Mg Tab 5 MG PO DAILY, TAB Clonidine Hcl (Catapres) 0.1 Mg Tab 0.1 MG PO DAILY, TAB Loratadine (Claritin) 10 Mg Tab 10 MG PO DAILY PRN, 0 Refills Paroxetine (Paxil) 20 Mg Tab 20 MG PO DAILY, TAB Admission Information HPI (per Admitting provider): This is an 89 year old female with a PMH of HTN, CKD stage 3, depression/anxiety , dementia, GERD presents with acute shortness of breath. As per daughter, who is at bedside, patient was in her usual state of health yesterday (12/31) with no issues to note. She went to sleep without a problem. Woke up this morning with significant chest congestion and cough. As per daughter, she has been afebrile. Does not have issues with swallowing at home. Though there is some underlying dementia, she is fairly independent; performs ADLs. Was seen with Dr. Hidalgo today (01/01) as outpatient due to the productive cough, congestion, shortness of breath. Was given neb treatment with no change in condition, so she was sent to the ER. CXR was done, not showing anything acutely. She was noted to have tachycardia. Denies chest pain. During exam, she had significant cough, but difficulty bringing up sputum. No fevers/chills, no nausea/vomiting. Physical Exam (per Admitting): General Appearance: + moderate distress (respiratory distress), + thin Head: normocephalic, atraumatic ENT: hearing grossly normal Respiratory/Chest: + respiratory distress, + rhonchi Cardiovascular: no murmur, + tachycardia (sinus) Abdomen/GI: normal bowel sounds, non tender, soft Extremities/Musculoskelatal: normal capillary refill, no pedal edema, + pertinent finding (+healing wound at the R lateral ankle) Neurologic/Psych: no motor/sensory deficits, alert, normal mood/affect Skin: normal color Lymphatic: no adenopathy Hospital Course sitting up on chair , pleasantly demented having coarse breathing sound with audible wheeze denies of any complain of discomfort or SOB requiring supplemental 02 son present at bedside plan to discharge to [facility] with SNF today , later transition to hospice care depending on patient clinical decline Exam: General-elderly female, very frail appearing , pleasant-advanced dementia , no sign of distress Eyes-sclera ENT-NAd Lungs-coarse breathing sound, + rales /wheeze, transmitted upper airway sound Heart-regular Abdomen-soft Extremities-no lower ext edema Neuro-baseline dementia, no focal deficit A/P : RECURRENT ASPIRATION PNEUMONIA /SEVERE DYSPHAGIA patient is having gross aspiration as per speech therapy as seen on video swallow due to patient's age and overall condition advanced dementia ; she would not tolerate feeding tube Family does not want feeding tube or any other intervention , aware poor prognosis -ongoing aspiration with any PO intake pt treated with Multiple Abx -Zosyn /Levaquin /Cefepime /Augmentin abx D/collette as no benefit with skilled nursing Antibiotic tx with ongoing aspiration Hospice /palliative care consulted appreciate input : the plan as per family is to discharge to [facility] and likely transition to hospice pt will be allow to eat for comfort feed , enjoys ice cream at night family -Son and Daughter aware of the poor prognosis -recurrent aspiration pneumonia /progressive respiratory failure willing to consider Hospice care at [facility] if pt's condition declines Elevated Troponin, likely Demand Ischemia Elevated troponin; as possibly related to a pulmonary embolism unfortunately, due to kidney function; a CTA could not be performed V/Q scan : 1. Severely limited study secondary to patient not tolerating the aerosolized technetium 99 DPTA. Therefore only the perfusion portion of the study was conducted. 2. Large perfusion defects involving the right lower lobe basilar segments and right middle lobe are indeterminate without the ventilation images to determine if the defects are matched or unmatched. patient is not a candidate for anticoagulation due to age, fall risk, etc. lower ext Doppler-negative for DVT ECHO : The left ventricle is normal in size. * There is mild concentric left ventricular hypertrophy. * Ejection Fraction = 65-70%. * Left ventricular systolic function is normal. * No regional wall motion abnormalities noted. continue supportive care poor prognosis with severe dysphagia , recurrent aspiration -in near future possible - palliative care, transition to hospice in a facility [facility] superimposed on CKD stage 3 due to dehydration resolved HTN Norvasc, Clonidine Depression/Anxiety continue Paxil DVT ppx subq heparin DNR DISPOSITION referral made to [facility] for SNF transfer to [facility] today -with plan to possible transition to Hospice in future Total time spent on discharge = 40 MIN This includes examination of the patient, discharge planning, medication reconciliation, and communication with other providers. Discharge Instructions Discharge Instructions Date of Service Jan 08, 2017. Admission Reason for Admission: Shortness Of Breath Discharge Discharge Diagnosis / Problem: SEVERE DYSPHAGIA /ASPIRATION PNEUMONIA / RESPIRATORY FAILURE Discharge Goals Goal(s): Decrease discomfort, Improve disease control, Diagnostic testing, Therapeutic intervention Activity Recommendations Activity Level: Assistance Required Therapies: Physical Therapy, Occupational Therapy, Speech Therapy . Additional Information Patient informed of condition: Yes Advance Directives: Yes DNR: Yes Level of Care: Skilled Communicable Disease: No Prognosis: Deteriorating Louis Catheter: No Instructions / Follow-Up Instructions / Follow-Up FOLLOW UP WITH PHYSICIAN AT [facility] PT IS HIGH RISK FOR ASPIRATION , STRICT ASPIRATION PRECAUTION NEEDS TO BE OBSERVED WILL NEED ASSISTANCE WITH EVERY MEAL Current Hospital Diet Patient's current hospital diet: Regular Diet Discharge Diet Recommended Diet: Regular Diet (ASPIRATION PRECAUTION ) Diet Texture: Dental Soft (bite-sized) Pending Studies Studies pending at discharge: no Laboratory Results Hemoglobin A1c Test 01/01/17 15:56 Range/Units Estimated Average Glucose 111 mg/dl Hemoglobin A1c 5.5 4.5-5.6 % Medical Emergencies . Who to Call and When: Medical Emergencies: If at any time you feel your situation is an emergency, please call 911 immediately. . Non-Emergent Contact Non-Emergency issues call your: Primary Care Provider . . "Provider Documentation" section prepared by Yeni Damon. . Core Measure Problem Core Measures: None Additional Copies To Myah Barnett M.D.
== END 2017-01-09 14:05 | DRG 177 ==
LOC: C.EDB 15:25 → C.MED 17:48 → ENRESERV 18:31
PROVIDERS: ADMIT Family Medicine; ATTEND Hospitalist
DX: J69.0 Pneumonitis due to inhalation of food and vomit (principal); J96.01 Acute respiratory failure with hypoxia; N17.9 Acute kidney failure, unspecified; I24.8 Other forms of acute ischemic heart disease; R13.10 Dysphagia, unspecified; I12.9 Hypertensive chronic kidney disease with stage 1 through stage 4 chronic kidney disease, or unspecified chronic kidney disease; N18.3 Chronic kidney disease, stage 3 (moderate); F32.9 Major depressive disorder, single episode, unspecified; F41.9 Anxiety disorder, unspecified; K21.9 Gastro-esophageal reflux disease without esophagitis; F03.90 Unspecified dementia, unspecified severity, without behavioral disturbance, psychotic disturbance, mood disturbance, and anxiety; Z66 Do not resuscitate; Z51.5 Encounter for palliative care; Z79.899 Other long term (current) drug therapy

== ENCOUNTER 2017-03-20 21:47 | Inpatient (IN) | payer OTHER ==
[~2017-03-20] VITALS: Ht 147.3 cm; Wt 46.8 kg
[~2017-03-20 21:47] MED LIST changes: +IPRASOL4 INH; +LPR25 PO; -METR1GEL3 TOP; -PRLSR20 PO; +ZNT150 PO
[2017-03-20] MEDS ORDERED: ONDANSETRON INJ 2 MG/ML 2 ML VIAL IV STA (22:03)
[2017-03-20] MEDS ORDERED: HYDROmorphone INJ 0.5 MG/0.5 ML SYR IV PRN (22:15)
--- NOTE | 2017-03-20 22:17 | EMERGENCY ROOM VISIT NOTE ---
History Report prepared by Javi: Louann Marsh Under the Supervision of: Dr. Milton Khan M.D. First contact with patient: 21:58 Chief Complaint: HIP PAIN Stated Complaint: L HIP FX History of Present Illness The patient is a 89 year old female who presents to the Emergency Room with complaints of sudden left hip pain. The patient fell about 7 hours ago. She notes left wrist pain as well. Per son, the patient was acting normally this morning when he went to visit her. The patient had right hip surgery by Dr. Celaya-Orthoped[facility]. The patient's PCP is Dr. Barnett. Per son, the patient was seen in the ED at the end of December for pneumonia. At that time, the patient was aspirating and per son, they were told the patient " "may pass away". At that time, the patient was put on comfort measures only. Per son, the patient has been doing much better and has stopped aspirating. He states he would like to help the patient as much as possible and take her off of comfort measures only due to her recently improved status. Source of History: patient Onset: 7 hours ago Position: other (left hip) Quality: other (s/p fall) Timing: other (sudden) Note: Pt notes left wrist pain. Review of Systems See HPI for pertinent positives & negatives. A total of 10 systems reviewed and were otherwise negative. 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 Surgical Problems: (1) Right femoral shaft fracture Family History Diabetes mellitus Social History Smoking Status: Never Smoker Alcohol Use: none Housing Status: lives with family Occupation Status: unemployed Current/Historical Medications Scheduled Amlodipine (Norvasc), 5 MG PO QAM Clonidine Hcl (Catapres), 0.1 MG PO QAM Metoprolol Tartrate (Lopressor) (Lopressor), 12.5 MG PO BID Paroxetine (Paxil), 20 MG PO DAILY Ranitidine (Zantac), 150 MG PO QAM Scopolamine (Scopolamine), 1 PATCH TD Q72HRS Scheduled PRN Acetaminophen (Tylenol Arthritis Ext Rel), 650 MG PO Q6H PRN for Pain or Fever Acetaminophen (Tylenol), 650 MG [place] Q6H PRN for Pain or Fever Ipratropium-Albuterol (Duoneb), 3 ML INH Q6H PRN for SOB/Wheezing Loratadine (Claritin), 10 MG PO QAM PRN for ALLERGIC REACTION Morphine Sulfate (Morphine Sulfate), 5 MG PO Q8 PRN for ANXIETY/SOB Allergies Coded Allergies: Aspirin (Verified Allergy, Unknown, 01/01/17) ASA=NAUSEA NSAIDs (Verified Allergy, Unknown, `, 01/01/17) Physical Exam Vital Signs Date Time Temp Pulse Resp B/P (MAP) Pulse Ox O2 Delivery O2 Flow Rate FiO2 03/21/17 01:09 94 145/94 97 Room Air 03/21/17 00:28 Nasal Cannula 2.0 03/20/17 23:29 93 172/122 03/20/17 22:03 92 03/20/17 21:55 37.4 96 20 168/93 96 Nasal Cannula 2.0 Physical Exam GENERAL: Patient is a elderly female HEAD: Normocephalic atraumatic EYES: Ocular movements intact pupils equal and react to light OROPHARYNX mucous membranes are moist no exudates present no erythema or edema present NECK: Supple no nuchal rigidity CHEST: Good equal expansion LUNGS: Clear and equal to auscultation CARDIAC: Normal S1 and S2 ABDOMEN: Soft nontender no guarding BACK: No CVA tenderness EXTREMITIES: Left leg shortened and internally rotated. NEURO: Patient is following commands and answering questions appropriately. Alert and oriented x3 Cranial Nerves 2-12 grossly intact Medical Decision & Procedures ER Provider Diagnostic Interpretation: Radiology results as stated below per my review and radiologist interpretation: One view chest: no evidence of pneumonia or pneumothorax, chronic changes noted. One view pelvis: intertrochanteric left femur fracture old right femur repair, and large amount of osteoarthritis. Two view left femur: intertrochanteric left femur fracture no evidence of dislocation or subluxation. Three view of left wrist: large amount of osteoarthritis no outright evidence of dislocation or fracture. Laboratory Results Test 03/20/17 22:05 03/20/17 22:16 Prothrombin Time 10.4 SECONDS (9.0-12.0) Prothromb Time International Ratio 1.0 (0.9-1.1) Activated Partial Thromboplast Time 26.3 SECONDS (21.0-31.0) Partial Thromboplastin Ratio 1.0 Magnesium Level 1.9 mg/dl (1.8-2.4) Total Creatine Kinase 73 U/L (26-192) Creatine Kinase MB 0.9 ng/ml (0.5-3.6) Creatine Kinase MB Ratio 1.2 (0-3.0) Troponin I 0.033 ng/ml (0-0.045) Urine Color YELLOW Urine Appearance CLEAR (CLEAR) Urine pH 8.5 (4.5-7.5) Urine Specific [place] 1.013 (1.000-1.030) Urine Protein TRACE (NEG) Urine Glucose (UA) NEG (NEG) Urine Ketones NEG (NEG) Urine Occult Blood NEG (NEG) Urine Nitrite NEG (NEG) Urine Bilirubin NEG (NEG) Urine Urobilinogen NEG (NEG) Urine Leukocyte Esterase NEG (NEG) Urine WBC (Auto) 0 /hpf (0-5) Urine RBC (Auto) 0-4 /hpf (0-4) Urine Hyaline Casts (Auto) 0 /lpf (0-5) Urine Epithelial Cells (Auto) 5-10 /lpf (0-5) Urine Bacteria (Auto) NEG (NEG) Date/Time Source Procedure Growth Status 03/21/17 00:00 Nasal MRSA DNA Surveillance Screen - Final Specimen Negative for MRSA by DNA Probe Complete Labs reviewed by ED physician. Medications Administered Medications (Trade) Dose Ordered Sig/Kimmy Route Start Time Stop Time Status Last Admin Dose Admin Hydromorphone HCl (Dilaudid Inj) 0.25 mg Q20M PRN IV 03/20/17 22:15 03/21/17 03:22 DC 03/20/17 22:29 0.25 MG Ondansetron HCl (Zofran Inj) 4 mg NOW STAT IV 03/20/17 22:03 03/20/17 22:07 DC 03/20/17 22:28 4 MG Sodium Chloride 500 ml @ 999 mls/hr Q31M STAT IV 03/21/17 01:57 03/21/17 02:39 DC 03/21/17 02:47 999 MLS/HR Sodium Chloride 500 ml @ 999 mls/hr Q31M STAT IV 03/21/17 01:09 03/21/17 02:39 DC 03/21/17 02:47 999 MLS/HR Hydromorphone HCl (Dilaudid Inj) 0.25 mg Q2H PRN IV 03/21/17 01:15 04/04/17 01:14 03/21/17 04:40 0.25 MG ED Course 2200: Past medical records reviewed. The patient was evaluated in room A9B. A complete history and physical examination was performed. 3:Zofran Inj 4 mg IV. 2214: Dilaudid Inj 0.25 mg IV. 2218: I discussed the patient's case with Dr. Hillman. 2340: I discussed the patient's case with Dr. Weber, he has agreed to evaluate the patient for further management and care. 0026: I discussed the patient's case with Dr. Hodges, he has agreed to evaluate the patient for further management and care. Medical Decision Differential diagnosis: Etiologies such as fracture, dislocation, intra-abdominal, pneumothorax, intrathoracic , intracranial, neurologic, as well as other traumatic pathologies were entertained. This is an 89-year-old female who presents emergency department complaining of left hip pain. The patient presents with an x-ray that shows a left hip fracture. X-rays were repeated here in the emergency department. I do not see any evidence of fracture to her left wrist however she was placed in a splint. The family wants to make it clear that the patient is a full code and is not "comfort measures only". I did discuss the case with Dr. Manjarrez as well as the hospitalist service who agreed to admit the patient. In the emergency department the patient was given Dilaudid as well as Zofran for the pain. Repeat examination revealed improvement patient's symptoms. Blood Pressure Screening Patient's blood pressure: Elevated blood pressure Blood pressure disposition: Referred to PCP (will be evaluated by hospitalist) Consults Time Called: 2218 Consulting Physician: Dr. Hillman Returned Call: [phone] I discussed the patient's case with Dr. Hillman. Additional Consults: Time Called: 2339 Consulted Physician: Dr. Weber Returned Call: [phone] Additional Comments: I discussed the patient's case with Dr. Weber, he has agreed to evaluate the patient for further management and care. Impression Primary Impression: Hip fracture Scribe Attestation The scribe's documentation has been prepared under my direction and personally reviewed by me in its entirety. I confirm that the note above accurately reflects all work, treatment, procedures, and medical decision making performed by me. Departure Information Dispostion Being Evaluated By Hospitalist Referrals WayneDuarte (PCP) Patient Instructions My [facility] Problem Qualifiers Primary Impression: Hip fracture Encounter type: initial encounter Fracture type: closed Laterality: left Qualified Codes: S72.002A - Fracture of unspecified part of neck of left femur , initial encounter for closed fracture
[2017-03-20 22:37] LABS: BASO % 0.1 %; BASO ABS # 0.01 K/uL (0-0.2); COMPLETE YES; EOS % 0.2 %; HEMATOCRIT 32.5 % (37-47); IG% 0.5 %; LYMPH % 5.5 %; LYMPH ABS # 0.61 K/uL (1.2-3.4); MEAN CELL VOLUME 89.3 fL (80-100); MEAN CORPUSCULAR HGB CONC 31.4 g/dl (32-36); MEAN PLATELET VOLUME 10.1 fL (7.4-10.4); MONO % 5.8 %; NEUT % 87.9 %; PLATELET COUNT 267 K/uL (130-400); RED BLOOD COUNT 3.64 M/uL (4.2-5.4); WHITE BLOOD COUNT 11.09 K/uL (4.8-10.8)
[2017-03-20 22:45] LABS: URINE APPEARANCE CLEAR (CLEAR); URINE BILIRUBIN NEG (NEG); URINE COLOR YELLOW; URINE NITRITE NEG (NEG); URINE PH 8.5 (4.5-7.5); URINE SPECIFIC GRAVITY 1.013 (1.000-1.030); UROBILINOGEN NEG (NEG); ZZURINE CULT IF INDIC CATH NO
[2017-03-20 22:46] LABS: MANUAL MICROSCOPIC REQUIRED? NO; REVIEW REQ? NO; SULFASALICYLIC ACID POS (NEG)
[2017-03-20 22:47] LABS: PROTHROMBIN TIME (PATIENT) 10.4 SECONDS (9.0-12.0)
[2017-03-20 22:55] LABS: BUN/CREATININE RATIO 17.3 (10-20); CALCIUM 9.5 mg/dl (8.5-10.1); CREATININE 1.55 mg/dl (0.60-1.20); POTASSIUM 4.2 mmol/L (3.5-5.1)
[2017-03-20 23:00] LABS: CKMB/CK RATIO 1.2 (0-3.0)
[2017-03-20] MEDS ORDERED: ACET650S10 PR (23:39)
[2017-03-20] MEDS ORDERED: IPRASOL4 INH (23:43)
[2017-03-20] MEDS ORDERED: METO25TA56 PO (23:46)
[2017-03-20 23:54] LABS: MAGNESIUM 1.9 mg/dl (1.8-2.4)
[2017-03-20] MEDS ORDERED: MORP20SO PO (23:54)
[2017-03-20] MEDS ORDERED: ZNTT/150 PO (23:56)
[2017-03-20] MEDS ORDERED: SCOP1DIS17 TD (23:59)
[2017-03-21] VITALS (11 sets, daily range): BP systolic 139–178; BP diastolic 72–95; PULSE 88–110; TEMP 36.3–37.4; O2SAT 91–96; Ht 147.3 cm; Wt 46.8 kg
[2017-03-21] MEDS ORDERED: SODIUM CHLORIDE 0.9% 500ML 500 ML IV STA ×2 (01:09→01:57)
[2017-03-21] MEDS ORDERED: MAGNESIUM HYDROXIDE SUSP 30 ML UDC PO PRN (01:15)
[2017-03-21] MEDS ORDERED: NALOXONE HCL 0.4 MG/1 ML VIAL/CARP IV PRN (01:15)
[2017-03-21] MEDS ORDERED: BISACODYL 10 MG SUPP PR PRN (01:15)
[2017-03-21] MEDS ORDERED: SOD PHOSPHATE/SOD BIPHOSPHATE ENEMA 132 ML BTL PR PRN (01:15)
[2017-03-21] MEDS ORDERED: POLYETHYLENE (MIRALAX) 17 GM PACK PO PRN (01:15)
--- NOTE | 2017-03-21 02:10 | History and Physical ---
History & Physical Date & Time of Service: Mar 21, 2017 at 02:09 Chief Complaint: L Hip Fx Primary Care Physician: Duarte Angel History of Present Illness Source: patient, family (son - Austin), hospital records Mrs Haley is an 89 year old female with multiple co-morbidities (see below) who presents to the ER after an unwitnessed fall at her intermediate ([facility]). She was found on the floor about 7 hour before arrival in the ER. The patient remembers falling but due to her dementia (and likely the early hours of the morning) she is unable to give me any more information regarding the events surrounding the fall. As per her son she is mobile with a walker but most of the time is in a wheelchair. She denies any chest pain, shortness of breath, abdominal pain, diarrhea, constipation currently. She denies any neck or head pain. She does say her left leg and arm hurt. As per the ER notes her son said the patient was acting normally this morning when he went to visit her. As the patient is now a permanent resident of [facility] she [place] [facility] [place] previous PCP Dr. Barnett and Johnny care in hospital. She was recently admitted to [facility] from 01 January to 08 January for aspiration pneumonia and dysphagia. She was admitted from home on that occasion. She was seen by palliative care and discharged to [facility] with possibility of needing hospice due to continued aspirations. Since then her son notes that she is doing much better and repeat dysphagia testing showed she was not aspirating. Her son feels like they made the wrong decision for "comfort care" back then as she rebounded well therefore is requesting the patient is for full resuscitation this admission. Past Medical/Surgical History Medical Problems: (1) Chronic Kidney Disease, Unspecified Status: Chronic (2) Esophageal Reflux Status: Chronic (3) Headache Status: Resolved (4) Open Wound Of Scalp Status: Resolved (5) Rectal & Anal Hemorrhage Status: Resolved (6) Rosacea Status: Chronic (7) Sprain Lumbar Region Status: Resolved (8) Varicose Vein Of Leg Nos Status: Chronic Family History Diabetes mellitus Social History Smoking Status: Unknown if Ever Smoked Smokeless Tobacco Use: No Alcohol Use: none Drug Use: none Housing status: intermediate ([facility]) Occupational Status: retired Immunizations History of Influenza Vaccine: Yes History of Tetanus Vaccine?: YES-2000 History of Pneumococcal: Unknown History of Hepatitis B Vaccine: No Multi-Drug Resistant Organisms History of MDRO: No Allergies Coded Allergies: Aspirin (Verified Allergy, Unknown, 01/01/17) ASA=NAUSEA NSAIDs (Verified Allergy, Unknown, `, 01/01/17) Home Medications Scheduled Amlodipine (Norvasc), 5 MG PO QAM Clonidine Hcl (Catapres), 0.1 MG PO QAM Metoprolol Tartrate (Lopressor) (Lopressor), 12.5 MG PO BID Paroxetine (Paxil), 20 MG PO DAILY Ranitidine (Zantac), 150 MG PO QAM Scopolamine (Scopolamine), 1 PATCH TD Q72HRS Scheduled PRN Acetaminophen (Tylenol Arthritis Ext Rel), 650 MG PO Q6H PRN for Pain or Fever Acetaminophen (Tylenol), 650 MG [place] Q6H PRN for Pain or Fever Ipratropium-Albuterol (Duoneb), 3 ML INH Q6H PRN for SOB/Wheezing Loratadine (Claritin), 10 MG PO QAM PRN for ALLERGIC REACTION Morphine Sulfate (Morphine Sulfate), 5 MG PO Q8 PRN for ANXIETY/SOB Review of Systems Constitutional: No fever, No chills Eyes: No worsening of vision ENT: No hearing loss Respiratory: No cough, No shortness of breath Cardiovascular: No chest pain Abdomen: No pain, No nausea, No vomiting, No diarrhea, No constipation Musculoskeletal: + joint pain (see HPI), + muscle pain (see HPI) Genitourinary - Female: No dysuria, No urinary frequency Neurologic: + memory loss, No numbness/tingling Integumentary: No rash, No itch Physical Exam Vital Signs Date Time Temp Pulse Resp B/P (MAP) Pulse Ox O2 Delivery O2 Flow Rate FiO2 03/21/17 01:09 94 145/94 97 Room Air 03/21/17 00:28 Nasal Cannula 2.0 03/20/17 23:29 93 172/122 03/20/17 22:03 92 03/20/17 21:55 37.4 96 20 168/93 96 Nasal Cannula 2.0 General Appearance: no apparent distress, + thin Head: normocephalic, atraumatic Eyes: normal inspection, PERRL, EOMI ENT: + pertinent finding (very dry mouth) Neck: supple, no JVD Respiratory/Chest: lungs clear, normal breath sounds (anteriorly), no respiratory distress, no accessory muscle use Cardiovascular: regular rate, rhythm, no murmur, normal peripheral pulses Abdomen/GI: normal bowel sounds, non tender, soft Back: no CVA tenderness Extremities/Musculoskelatal: no calf tenderness, normal capillary refill, no pedal edema Neurologic/Psych: carry in worker II-XII nml as tested (grossly normal limited examination due to dementia), no motor/sensory deficits (moving toes distal to hip fracture , unclear if sensation intact), alert, + disoriented (knows her , but disorientated to time, place and person) Skin: normal color, warm/dry, no rash Diagnostics Laboratory Results Results Past 24 Hours Test 03/20/17 22:03 03/20/17 22:05 03/20/17 22:16 Range/Units Creatine Kinase MB Ratio 1.2 0-3.0 White Blood Count 11.09 4.8-10.8 K/uL Red Blood Count 3.64 4.2-5.4 M/uL Hemoglobin 10.2 12.0-16.0 g/dL Hematocrit 32.5 37-47 % Mean Corpuscular Volume 89.3 80-100 fL Mean Corpuscular Hemoglobin 28.0 25-34 pg Mean Corpuscular Hemoglobin Concent 31.4 32-36 g/dl Platelet Count 267 130-400 K/uL Mean Platelet Volume 10.1 7.4-10.4 fL Neutrophils (%) (Auto) 87.9 % Lymphocytes (%) (Auto) 5.5 % Monocytes (%) (Auto) 5.8 % Eosinophils (%) (Auto) 0.2 % Basophils (%) (Auto) 0.1 % Neutrophils # (Auto) 9.76 1.4-6.5 K/uL Lymphocytes # (Auto) 0.61 1.2-3.4 K/uL Monocytes # (Auto) 0.64 0.11-0.59 K/uL Eosinophils # (Auto) 0.02 0-0.5 K/uL Basophils # (Auto) 0.01 0-0.2 K/uL RDW Standard Deviation 54.8 36.4-46.3 fL RDW Coefficient of Variation 16.6 11.5-14.5 % Immature Granulocyte % (Auto) 0.5 % Immature Granulocyte # (Auto) 0.05 0.00-0.02 K/uL Prothrombin Time 10.4 9.0-12.0 SECONDS Prothromb Time International Ratio 1.0 0.9-1.1 Activated Partial Thromboplast Time 26.3 21.0-31.0 SECONDS Partial Thromboplastin Ratio 1.0 Sodium Level 136 136-145 mmol/L Potassium Level 4.2 3.5-5.1 mmol/L Chloride Level 101 98-107 mmol/L Carbon Dioxide Level 25 21-32 mmol/L Anion Gap 10.0 3-11 mmol/L Blood Urea Nitrogen 27 7-18 mg/dl Creatinine 1.55 0.60-1.20 mg/dl Est Creatinine Clear Calc Drug Dose 15.9 ml/min Estimated GFR () 34.1 Estimated GFR (Non- 29.4 BUN/Creatinine Ratio 17.3 10-20 Random Glucose 160 70-99 mg/dl Calcium Level 9.5 8.5-10.1 mg/dl Magnesium Level 1.9 1.8-2.4 mg/dl Total Creatine Kinase 73 26-192 U/L Creatine Kinase MB 0.9 0.5-3.6 ng/ml Troponin I 0.033 0-0.045 ng/ml Urine Color YELLOW Urine Appearance CLEAR CLEAR Urine pH 8.5 4.5-7.5 Urine Specific [place] 1.013 1.000-1.030 Urine Protein TRACE NEG Urine Glucose (UA) NEG NEG Urine Ketones NEG NEG Urine Occult Blood NEG NEG Urine Nitrite NEG NEG Urine Bilirubin NEG NEG Urine Urobilinogen NEG NEG Urine Leukocyte Esterase NEG NEG Urine WBC (Auto) 0 0-5 /hpf Urine RBC (Auto) 0-4 0-4 /hpf Urine Hyaline Casts (Auto) 0 0-5 /lpf Urine Epithelial Cells (Auto) 5-10 0-5 /lpf Urine Bacteria (Auto) NEG NEG Diagnostic Radiology XR results pending formal radiological interpretation CXR: improved RLL opacity from previous no acute changes Left femur/Pelvic XR: Intertrochanteric displaced left femur fracture, no dislocation Previous IM nail right femur repair noted Osteoarthritis Left wrist: No fracture seen EKG Sinus rhythm with Fusion complexes Rate [address] depression on II and aVF present on previous EKGs When compared with ECG of 02-JAN-2017 12:15 Fusion complexes are now Present Impression Assessment and Plan 89 year old female with left intertrochanteric hip fracture following unwitnessed fall Left intertrochanteric hip fracture - NPO except meds with IVF (LR @ 75 MLS/HR) - mouth care - Louis catheter already placed in ER - Consult anesthesiology and orthopedics (Dr Celaya) - POA - Austin (son) would like to be contacted regarding consent/decision regarding surgery Chronic problems: CKD stage 3 - Cr at baseline, IVF as above GERD - continue ranitidine Hypertension - continue home meds- - clonidine, metoprolol and amlodipine with hold parameters Depression/anxiety - continue paroxetine 20mg Attending addendum: I have physically seen this patient, have supervised the medical residents activities, and agree with the H&P unless as otherwise noted. Assessment and Plan: Intertrochanteric displaced left femoral fracture/history previous nailing of right femur fracture-- Patient be admitted to the medical surgical floor. Nothing by mouth except essential medications Morphine IV when necessary pain management Lactated Ringer's at 75 ML's per hour Consult orthopedic surgery Dr. Celaya, who has performed her previous surgery. Chronic kidney disease stage III-- At baseline IV fluids as noted above Serial BMP and magnesium levels. Hypertension-- Continue clonidine, metoprolol and amlodipine with hold parameters Depression/anxiety -- continue Paxil GERD-- Continue ranitidine Level of Care Med/Surg Advanced Directives Existing Advance Directive: Yes Existing Living Will: Yes Existing Power of Diamond Die Driller: Yes (Son - Austin) Resuscitation Status FULL RESUSCITATION (as discussed extensively with her son (Austin)) VTE Prophylaxis Given or contraindicated: SCD's, Treatment not indicated (defer pending surgery ) Social Service Consult Lives in [place] Additional Copies To [place], Duarte Resident Tracking Resident Involvement: Resident Care Provided Care Provided: Adult Hospital Medicine
[2017-03-21] MEDS ORDERED: INFLUENZA ADMINISTRATION CHARGE ONE (02:45)
[2017-03-21] MEDS ORDERED: ONDANSETRON INJ 2 MG/ML 2 ML VIAL IV PRN (02:45)
[2017-03-21] MEDS ORDERED: LORATADINE 10 MG TAB PO PRN (02:45)
[2017-03-21] MEDS ORDERED: ALBUT/IPRATROP 3MG/0.5MG NEB 3 ML VIAL INH PRN (02:45)
[2017-03-21] MEDS ORDERED: INFLUENZA VACCINE HIGH DOSE 65+ 0.5 ML SYR IM. ONE (02:45)
[2017-03-21] MEDS: HYDROmorphone INJ 0.5 MG/0.5 ML SYR IV PRN (04:40)
--- NOTE | 2017-03-21 06:52 | DIAGNOSTIC IMAGING REPORT ---
PELVIS 1 VIEW ROUTINE CLINICAL HISTORY: Left hip pain status post trauma COMPARISON STUDY: August 2009 FINDINGS: There is an acute displaced subcapital left hip fracture. Postsurgical changes involve the right hip. There is an old right-sided tissue pubic ring fracture. Degenerative changes are present in the lower lumbar spine. There is no SI joint diastases. There is no symphysis diastases. IMPRESSION: Acute subcapital left hip fracture. Electronically signed by: Farhat Armstrong M.D. 03/21/2017 6:51 AM Dictated Date/Time: 03/21/2017 6:49 AM
--- NOTE | 2017-03-21 06:58 | DIAGNOSTIC IMAGING REPORT ---
CT SCAN OF THE BRAIN WITHOUT IV CONTRAST CLINICAL HISTORY: Fall. COMPARISON STUDY: CT of the brain dated 11/14/2011. TECHNIQUE: Unenhanced axial CT scan of the brain is performed from the vertex to the skull base. CT DOSE: 537.48 mGy.cm FINDINGS: Brain parenchyma: There are age-related involutional changes noting moderate patchy subcortical and periventricular microangiopathic change. There is no hemorrhage, mass effect, or evidence of acute territorial ischemia by CT criteria. Warren-white matter is preserved. No extra-axial fluid collection is seen. Ventricles, sulci, cisterns: Prominent secondary to involutional change. Intracranial vasculature: There is atherosclerotic calcification of the cavernous carotid arteries. Calvarium: The skeletal structures are osteopenic. No depressed calvarial fracture is seen. Sinuses and mastoids: The visualized paranasal sinuses are clear. The mastoid air cells are well pneumatized. Orbits: The bony orbits are grossly intact. There are bilateral ocular lens implants. IMPRESSION: There is no hemorrhage, mass effect, or evidence of acute territorial ischemia by CT criteria. Electronically signed by: Lawrence Marcos M.D. 03/21/2017 6:56 AM Dictated Date/Time: 03/21/2017 6:55 AM
--- NOTE | 2017-03-21 07:00 | DIAGNOSTIC IMAGING REPORT ---
CHEST ONE VIEW PORTABLE CLINICAL HISTORY: 89 years-old Female presenting with Pt c/o left hip fx. TECHNIQUE: Portable supine AP view of the chest was obtained. COMPARISON: 01/09/2017. FINDINGS: Atherosclerosis of the aortic arch. Chronic silhouette mildly enlarged. Diffuse prominent reticular lung markings. Interval decrease in right lower lung opacity. No large pleural effusion or pneumothorax. Nodular opacities in the right upper lung slightly decreased in size. Degenerative changes of the thoracic spine. Upper abdomen normal. IMPRESSION: 1. Interval decrease in right basilar opacity and right upper lung nodularity. 2. Cardiomegaly. 3. Diffuse reticular lung markings may indicate underlying chronic lung disease. Electronically signed by: Bear Jurado M.D. 03/21/2017 6:59 AM Dictated Date/Time: 03/21/2017 6:56 AM
--- NOTE | 2017-03-21 07:03 | DIAGNOSTIC IMAGING REPORT ---
LEFT WRIST 3 VIEWS CLINICAL HISTORY: Left wrist pain. FINDINGS: 3 views of the left wrist are obtained. No prior studies are available for comparison at the time of dictation. The skeletal structures are osteopenic. There is a nondistracted triquetral fracture, best seen on the lateral projection. There is also an acute impacted fracture of the distal radial metaphysis. Soft tissue edema is present around the wrist. Degenerative narrowing seen at the radiocarpal articulation. Advanced cystic degenerative change is seen in the scaphoid and lunate. There is significant arthritic change along the radial carpal bones with bony overgrowth and sclerosis. Chondrocalcinosis is noted involving the triangular fibrocartilage. IMPRESSION: 1. There is an impacted fracture of the distal radial metaphysis with overlying soft tissue edema. 2. There is a nondistracted fracture of the triquetrum. 3. Osteopenia and arthritic change as above. Electronically signed by: Lawrence Marcos M.D. 03/21/2017 7:02 AM Dictated Date/Time: 03/21/2017 7:00 AM
--- NOTE | 2017-03-21 07:05 | DIAGNOSTIC IMAGING REPORT ---
LEFT FEMUR 2 VIEWS CLINICAL HISTORY: Fall with left hip pain. FINDINGS: AP and crosstable lateral views of the left femur are correlated with pelvic radiograph performed concurrently on 03/20/2017. The skeletal structures are osteopenic. There is an impacted subcapital fracture of the left femur with superior distraction. The femoral shaft is intact. Arthritic change is noted in the left hip and knee. The visualized left hemipelvis appears intact. Soft tissue edema is present in the upper thigh. Atherosclerotic calcification is noted in the femoral artery. Venous varicosities are present medial to the knee. IMPRESSION: Osteopenia with an impacted and distracted subcapital fracture of the left femur. Electronically signed by: Lawrence Marcos M.D. 03/21/2017 7:04 AM Dictated Date/Time: 03/21/2017 7:02 AM
[2017-03-21 09:11] LABS: HEMATOCRIT 32.6 % (37-47); MEAN CELL VOLUME 89.1 fL (80-100); MEAN CORPUSCULAR HEMOGLOBIN 28.1 pg (25-34); MEAN CORPUSCULAR HGB CONC 31.6 g/dl (32-36); MEAN PLATELET VOLUME 9.6 fL (7.4-10.4); PLATELET COUNT 257 K/uL (130-400); RED BLOOD COUNT 3.66 M/uL (4.2-5.4); WHITE BLOOD COUNT 10.12 K/uL (4.8-10.8)
[2017-03-21] MEDS: CLONIDINE HCL 0.1 MG TAB PO SCH (09:22)
[2017-03-21] MEDS: METOPROLOL TARTRATE 25 MG TAB PO SCH ×2 (09:23→20:55)
[2017-03-21] MEDS: PAROXETINE 20 MG TAB PO SCH (09:23)
[2017-03-21] MEDS: AMLODIPINE BESYLATE 5 MG TAB PO SCH (09:23)
[2017-03-21] MEDS: RANITIDINE HCL 150 MG TAB PO SCH (09:23)
[2017-03-21] MEDS: LACTATED RINGER'S 1000ML 1,000 ML IV SCH ×2 (09:25→21:44)
[2017-03-21 09:32] LABS: BUN/CREATININE RATIO 17.4 (10-20); CALCIUM 8.9 mg/dl (8.5-10.1); CREATININE 1.29 mg/dl (0.60-1.20); POTASSIUM 4.1 mmol/L (3.5-5.1)
[2017-03-21 09:36] LABS: BASO % 0.2 %; BASO ABS # 0.02 K/uL (0-0.2); COMPLETE YES; EOS % 1.7 %; HYPERSEGMENTED POLYS 1+; IG% 0.2 %; LYMPH % 5.7 %; LYMPH ABS # 0.58 K/uL (1.2-3.4); MONO % 5.9 %; NEUT % 86.3 %
--- NOTE | 2017-03-21 14:58 | Hospitalist Progress Note ---
Hospitalist Progress Note Date of Service Mar 21, 2017. (Bridgette Salazar PA-C) Subjective Pt evaluation today including: conversation w/ patient, physical exam, chart review, lab review, review of studies, review of inpatient medication list Patient seen and evaluated. Admitted early this morning for a fall with L Hip Fx and L Wrist Fx. She has underlying dementia so limited information able to be obtained. She states she remembers falling but when asked what she was doing prior to falling she stated "oh...just doing stupid things". She currently states she has no pain and does appear comfortable. She is disoriented but is calm and pleasant She does need assistance with eating but was pocketing food this AM and diet adjusted to pureed. Does have a H/O chronic aspiration Speech can be garbled but has significant underbite and most words were understandable. Constitutional: No fever, No chills Respiratory: No shortness of breath Cardiovascular: No chest pain Abdomen: No pain, No nausea, No vomiting Musculoskeletal: No joint pain Female : No dysuria (Bridgette Salazar PA-C) Medications Current Inpatient Medications Medications (Trade) Dose Ordered Sig/Kimmy Route Start Time Stop Time Status Last Admin Dose Admin Lactated Ringer's 1,000 ml @ 75 mls/hr [id number] IV 03/21/17 03:30 04/20/17 03:29 03/21/17 09:25 75 MLS/HR Hydromorphone HCl (Dilaudid Inj) 0.25 mg Q2H PRN IV 03/21/17 01:15 04/04/17 01:14 03/21/17 04:40 0.25 MG Naloxone HCl (Narcan Inj) 0.1 mg PRN PRN IV 03/21/17 01:15 04/20/17 01:14 Senna/Docusate Sodium (Senokot S Tab) 2 tab HS PO 03/21/17 21:00 04/20/17 20:59 Polyethylene (Miralax Powder Packet) 17 gm DAILY PRN PO 03/21/17 01:15 04/20/17 01:14 Magnesium Hydroxide (Milk Of Magnesia Susp) 30 ml DAILY PRN PO 03/21/17 01:15 04/20/17 01:14 Bisacodyl (Dulcolax Supp) 10 mg DAILY PRN MN 03/21/17 01:15 04/20/17 01:14 Sodium Biphosphate/ Sodium Phosphate (Fleet Enema) 132 ml PRN PRN MN 03/21/17 01:15 Ondansetron HCl (Zofran Inj) 4 mg Q6H PRN IV 03/21/17 02:45 04/20/17 02:44 Acetaminophen 700 mg/Empty Bag 70 ml @ 280 mls/hr Q6H PRN IV 03/21/17 02:45 04/20/17 02:44 Amlodipine Besylate (Norvasc Tab) 5 mg QAM PO 03/21/17 09:00 04/20/17 08:59 03/21/17 09:23 5 MG Clonidine HCl (Catapres Tab) 0.1 mg QAM PO 03/21/17 09:00 04/20/17 08:59 03/21/17 09:22 0.1 MG Albuterol/ Ipratropium (Duoneb) 3 ml Q6H PRN INH 03/21/17 02:45 04/20/17 02:44 Loratadine (Claritin Tab) 10 mg QAM PRN PO 03/21/17 02:45 04/20/17 02:44 Metoprolol Tartrate (Lopressor Tab) 12.5 mg BID PO 03/21/17 09:00 04/20/17 08:59 03/21/17 09:23 12.5 MG Paroxetine HCl (pAXil TAB) 20 mg DAILY PO 03/21/17 09:00 04/20/17 08:59 03/21/17 09:23 20 MG Ranitidine HCl (zANTac TAB) 150 mg QAM PO 03/21/17 09:00 04/20/17 08:59 03/21/17 09:23 150 MG (Bridgette Salazar PA-C) Objective Vital Signs Date Time Temp Pulse Resp B/P (MAP) Pulse Ox O2 Delivery O2 Flow Rate FiO2 03/21/17 11:50 88 16 160/75 (103) 96 Nasal Cannula 3.0 03/21/17 07:35 Room Air 03/21/17 07:32 37.4 91 17 170/84 (112) 91 Room Air 03/21/17 05:30 98 165/78 (107) 03/21/17 04:29 110 173/81 (111) 03/21/17 03:15 37.4 109 18 178/95 (122) 92 Nasal Cannula 3.0 03/21/17 03:10 93 Nasal Cannula 3.0 03/21/17 02:58 37.4 94 20 145/94 97 03/21/17 01:09 94 145/94 97 Room Air 03/21/17 00:28 Nasal Cannula 2.0 03/20/17 23:29 93 172/122 03/20/17 22:03 92 03/20/17 21:55 37.4 96 20 168/93 96 Nasal Cannula 2.0 (Bridgette Salazar PA-C) Physical Exam General Appearance: no apparent distress Neck: supple, no JVD, trachea midline Respiratory/Chest: lungs clear, normal breath sounds, no respiratory distress, no accessory muscle use Cardiovascular: regular rate, rhythm, no gallop, no murmur Abdomen: normal bowel sounds, non tender, soft Extremities: no pedal edema, no calf tenderness, + pertinent finding (no ecchymosis or redness over L hip; moves toes) Neurologic/Psychiatric: alert, oriented x 3 Skin: normal color, warm/dry (Bridgette Salazar PA-C) Laboratory Results Last 24 Hours Test 03/20/17 22:03 03/20/17 22:05 03/20/17 22:16 03/21/17 08:56 Creatine Kinase MB Ratio 1.2 White Blood Count 11.09 K/uL 10.12 K/uL Red Blood Count 3.64 M/uL 3.66 M/uL Hemoglobin 10.2 g/dL 10.3 g/dL Hematocrit 32.5 % 32.6 % Mean Corpuscular Volume 89.3 fL 89.1 fL Mean Corpuscular Hemoglobin 28.0 pg 28.1 pg Mean Corpuscular Hemoglobin Concent 31.4 g/dl 31.6 g/dl Platelet Count 267 K/uL 257 K/uL Mean Platelet Volume 10.1 fL 9.6 fL Neutrophils (%) (Auto) 87.9 % 86.3 % Lymphocytes (%) (Auto) 5.5 % 5.7 % Monocytes (%) (Auto) 5.8 % 5.9 % Eosinophils (%) (Auto) 0.2 % 1.7 % Basophils (%) (Auto) 0.1 % 0.2 % Neutrophils # (Auto) 9.76 K/uL 8.73 K/uL Lymphocytes # (Auto) 0.61 K/uL 0.58 K/uL Monocytes # (Auto) 0.64 K/uL 0.60 K/uL Eosinophils # (Auto) 0.02 K/uL 0.17 K/uL Basophils # (Auto) 0.01 K/uL 0.02 K/uL RDW Standard Deviation 54.8 fL 55.3 fL RDW Coefficient of Variation 16.6 % 16.8 % Immature Granulocyte % (Auto) 0.5 % 0.2 % Immature Granulocyte # (Auto) 0.05 K/uL 0.02 K/uL Prothrombin Time 10.4 SECONDS Prothromb Time International Ratio 1.0 Activated Partial Thromboplast Time 26.3 SECONDS Partial Thromboplastin Ratio 1.0 Sodium Level 136 mmol/L 137 mmol/L Potassium Level 4.2 mmol/L 4.1 mmol/L Chloride Level 101 mmol/L 106 mmol/L Carbon Dioxide Level 25 mmol/L 23 mmol/L Anion Gap 10.0 mmol/L 8.0 mmol/L Blood Urea Nitrogen 27 mg/dl 23 mg/dl Creatinine 1.55 mg/dl 1.29 mg/dl Est Creatinine Clear Calc Drug Dose 15.9 ml/min 19.1 ml/min Estimated GFR () 34.1 42.5 Estimated GFR (Non- 29.4 36.7 BUN/Creatinine Ratio 17.3 17.4 Random Glucose 160 mg/dl 148 mg/dl Calcium Level 9.5 mg/dl 8.9 mg/dl Magnesium Level 1.9 mg/dl Total Creatine Kinase 73 U/L Creatine Kinase MB 0.9 ng/ml Troponin I 0.033 ng/ml Urine Color YELLOW Urine Appearance CLEAR Urine pH 8.5 [address] [place] 1.013 Urine Protein TRACE Urine Glucose (UA) NEG Urine Ketones NEG Urine Occult Blood NEG Urine Nitrite NEG Urine Bilirubin NEG Urine Urobilinogen NEG Urine Leukocyte Esterase NEG Urine WBC (Auto) 0 /hpf Urine RBC (Auto) 0-4 /hpf Urine Hyaline Casts (Auto) 0 /lpf Urine Epithelial Cells (Auto) 5-10 /lpf Urine Bacteria (Auto) NEG Hypersegmented Polys 1+ 25-Hydroxy Vitamin D Total 10.6 ng/ml (Bridgette Salazar PA-C) Assessment and Plan 89 year old female with left intertrochanteric hip fracture following unwitnessed fall Left Subcapital Hip Fx and L Fx of Distal Radial Metaphysis and Triquetrum: - Tylenol and Dilaudid PRN for pain - Consult orthopedics - placed NPO at midnight for anticipated repair on 03/22 Pre-Operative Clearance: - Review of past records reveal a large perfusion deficit on VQ suggesting possible PE but unable to do further studies due to CKD -- Respiratory status appears stable, no dyspnea or distress, utilizing supplemental O2 at this time - Did have elevated troponins and EKG changes - Echo from Dec 2016 - EF 65-70% with no mention of diastolic dysfunction, no regional wall motion abnormalities; R ventricular systolic pressures of 40-50 mg - Cath in 2002 showed normal coronaries - Will obtain updated EKG - Does have stable chronic kidney disease that is stable at this time - Ambulates with walker or wheelchair - Limited [facility] - Patient would be a moderate risk for surgical intervention Chronic Aspiration: - Video swallow on previous admission revealed aspiration of thin, pudding, and nectar thick liquids -- Apparently aspiration issues resolving with a normal video swallow on follow-up? - Patient was oral pocketing during breakfast and will utilize pureed diet - Patient was previously comfort measures and currently revoked at this time due to improvement per family Vitamin D Deficiency and Osteopenia: - Can slowly replace with levels rechecked in future CKD Stage III: STABLE - Continue to monitor kidney function and avoid nephrotoxic agents HTN: - Norvasc 5 mg daily, Clonidine 0.1 mg daily, and Lopressor 12.5 mg BID Depression/Anxiety: - Paxil 20 mg daily GERD: - Ranitidine 150 mg daily Code Status: FULL RESUSCITATION - comfort measures revoked Disposition: - From [facility] Continued [facility] stay due to: ambulation difficulties Discharge planning: [facility] facility (Bridgette Salazar PA-C) pt seen, case d/w A Martin PAC sleeping comfortably, nad breathing unlabored no pallor or icterus hip fracture - for OR prior aspirations/dysphagia - vigilance DVT proph - SCDs otherwise as above (Kwasi Storm D.O.)
[2017-03-21] MEDS ORDERED: NURSING VERBAL MED ORDER ONE (16:00)
--- NOTE | 2017-03-21 18:03 | HISTORY & PHYSICAL EXAMINATION ---
DATE OF ADMISSION: 03/21/2017 CHIEF COMPLAINT: 1. Left hip pain. 2. Left wrist pain. HISTORY OF PRESENT ILLNESS: This is an 89-year-old female resident at [facility] with pretty severe dementia who sustained a fall last evening. She was found on the floor and brought to the emergency room where x-rays revealed displaced femoral neck fracture. She was admitted by the medicine service and we were consulted for treatment. The patient is fairly demented and could not give a very good history this morning. She does report some hip pain and that is pretty much it. She does have multiple comorbidities. She previously walked with the use a walker but spends most of her time in a wheelchair. The patient was apparently recently treated for some aspiration pneumonia and dysphagia which is apparently cleared up. At one point she was on comfort measures only, but now back to full resuscitation per her son who said that. It sounds like she is doing better from a medical standpoint. PAST MEDICAL HISTORY: Significant for: 1. Chronic renal insufficiency. 2. Dysphagia/reflux. 3. Chronic headaches. 4. Rosacea. 5. Severe dementia. PAST SURGICAL HISTORY: Include right femoral nailing done by myself back in 2009. Reminder of the past medical history is per the admission H&P. PHYSICAL EXAMINATION: VITAL SIGNS: Temperature is 36.9. Vital signs stable. She has had some hypertension in the hospital. GENERAL MUSCULOSKELETAL: Reveals the patient is lying in bed. She looks reasonably comfortable this morning. She has had no significant tenderness to her spine. She has full and painless range of motion of her right shoulder, elbow, wrist and hip and left shoulder and elbow. She has got pain with range of motion of the right hip and leg. Examination of the left wrist reveals a cock-up wrist splint to be in place. She does have some moderate bruising and swelling over her left wrist. No visible deformity. She can flex extend her fingers appropriately. Examination of the left hip and leg reveals her leg to be slightly shortened and slightly externally rotated. She has no knee effusion. She does have significant pain with any type of hip motion. She can dorsiflex and plantarflex her foot appropriately. X-rays of the pelvis and left hip revealed displaced subcapital femoral neck fracture. No signs of underlying arthritic problems. X-rays of the left wrist were also reviewed. It shows a nondisplaced distal radius metaphyseal fracture. She has small avulsion fracture of the dorsal trochanter region. 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 ASSESSMENT: An 89-year-old white female with multiple comorbidities status post a fall with: 1. Left displaced subcapital femoral neck fracture. 2. Left nondisplaced distal radius fracture. PLAN: The patient has been admitted by the medicine service. I talked to her son this morning, Austin Haley. We discussed treatment options including operative and nonoperative treatment. He would like to have her hip fixed. We talked about timing and he preferred immediate to do this surgery. I told him I could not do it today but tomorrow we could put her on. She will need medical clearance, which should be able to be obtained in the next 12-24 hours. I talked about maybe doing it later on this evening and could have one of my partners do it, but he preferred that I do it tomorrow. In light of this, we will let her eat today and proceed with left cemented bipolar hip arthroplasty tomorrow. We will likely put her left wrist in a cast for 6 weeks. The risks and benefits of this procedure were explained to the patient's son and power of assistant prosecuting attorney Austin Haley and he understands and desires to proceed. Informed consent will be obtained by phone or his presence tomorrow. In the meantime, we will continue DVT prophylaxis including thigh-high TEDs and SCDs. We will apply traction if needed for comfort. We will keep her n.p.o. after midnight.
[2017-03-21] MEDS: DOCUSATE SODIUM/SENNA 50/8.6MG TAB PO SCH (20:54)
[2017-03-22] MEDS: HYDROmorphone INJ 0.5 MG/0.5 ML SYR IV PRN ×2 (00:48→04:50)
[2017-03-22 06:28] LABS: HEMATOCRIT 27.4 % (37-47); MEAN CELL VOLUME 90.1 fL (80-100); MEAN PLATELET VOLUME 9.7 fL (7.4-10.4); PLATELET COUNT 192 K/uL (130-400); RED BLOOD COUNT 3.04 M/uL (4.2-5.4)
[2017-03-22 07:01] LABS: BUN/CREATININE RATIO 24.1 (10-20); CALCIUM 8.7 mg/dl (8.5-10.1); CREATININE 1.09 mg/dl (0.60-1.20); MAGNESIUM 1.9 mg/dl (1.8-2.4); POTASSIUM 3.9 mmol/L (3.5-5.1)
[2017-03-22 07:30] VITALS: BP 127/78; PULSE 82; TEMP 36.7; O2SAT 96
[2017-03-22] MEDS ORDERED: BUPIVACAINE 0.5 % 5 MG/1 ML PF 10ML VIAL ONE (08:00)
--- NOTE | 2017-03-22 09:08 | Clinical Documentation Query ---
CLINICAL DOCUMENTATION QUERY 89 year old female with left intertrochanteric hip fracture following unwitnessed fall. In your clinical opinion is this patient being managed for: ( x ) Acute kidney failure, resolved ( ) Not Agree ( ) Other explanation of clinical findings (Please Explain) ( ) Unable to determine (Please Define) ( ) Need to Discuss The medical record reflects the following clinical findings, treatment, and risk factors. Clinical Indicators: Creatinine 1.55 trending down to 1.09, GFR 29.4 trending up to 45.0 Treatment: IV hydration, I&O, serial PRP's Risk Factors: Age, CKD 3, HTN Please clarify and document your clinical opinion in the progress notes and discharge summary. Terms such as "probable", "suspected", "likely", "questionable", "possible", or "still to be ruled out" are acceptable. IF IN AGREEMENT, YOU MUST DOCUMENT ABOVE DIAGNOSTIC STATEMENT IN DAILY PROGRESS NOTES AND DISCHARGE SUMMARY. This document is not part of the patient's record. Thank You, Elizabeth Vazquez RN [phone]
--- NOTE | 2017-03-22 09:09 | Orthopedic Progress Note ---
Orthopedic Progress Note Date of Service Mar 22, 2017. Subjective Additional Notes: Patient seen this morning. No complaints of pain. Her son and daughter are here with her. Objective splint in place to left wrist. She does have some swelling and bruising. Moving her fingers appropriately. Left lower extremity: NVI. moves toes appropriately. Date Time Temp Pulse Resp B/P (MAP) Pulse Ox O2 Delivery O2 Flow Rate FiO2 03/22/17 07:30 36.7 82 20 127/78 (94) 96 Nasal Cannula 3.0 03/21/17 23:09 36.3 96 18 147/72 (97) 94 Nasal Cannula 3.0 03/21/17 23:05 96 Nasal Cannula 3.0 03/21/17 20:48 91 139/75 (96) 03/21/17 18:29 150/80 (103) 03/21/17 15:10 Nasal Cannula 3.0 03/21/17 15:00 36.9 89 16 165/85 (111) 96 Nasal Cannula 3.0 03/21/17 11:50 88 16 160/75 (103) 96 Nasal Cannula 3.0 Laboratory Results 24 Hours: Test 03/22/17 06:04 Hematocrit 27.4 % Hemoglobin 8.5 g/dL Assessment & Plan Assessment: 1: left femoral neck fx 2: left distal radius fx Plan: NPO at this time. Plan for surgery today, cemented hip hemiarthroplasty of left hip and casting of left wrist fx. procedure explained with son (POA) and daughter and consent obtained. Discharge Planning Discharge Planning: other ([facility] ) DVT Prophylaxis: TEDs, SCDs
[2017-03-22] MEDS: PAROXETINE 20 MG TAB PO SCH (09:32)
[2017-03-22] MEDS: AMLODIPINE BESYLATE 5 MG TAB PO SCH (09:32)
[2017-03-22] MEDS: CLONIDINE HCL 0.1 MG TAB PO SCH (09:32)
[2017-03-22] MEDS: METOPROLOL TARTRATE 25 MG TAB PO SCH ×2 (09:33→22:06)
[2017-03-22] MEDS: RANITIDINE HCL 150 MG TAB PO SCH (09:33)
[2017-03-22] MEDS: LACTATED RINGER'S 1000ML 1,000 ML IV SCH (10:42)
--- NOTE | 2017-03-22 11:24 | History & Physical Bridge Note ---
H&P Re-Evaluation Bridge Note: I have examined the patient, reviewed the History & Physical and in the interval since the performance of the History & Physical I have noted the following changes of clinical significance: No changes noted
[2017-03-22] MEDS ORDERED: PROPOFOL IV EMULSION 10 MG/ML 20 ML VIAL IV ONE (15:49)
[2017-03-22] MEDS ORDERED: THROMBIN FOR SOLN 20000 UNIT KIT ONE (16:43)
[2017-03-22] MEDS ORDERED: BACITRACIN 50000 UNIT VIAL ONE (16:43)
[2017-03-22] MEDS ORDERED: BUPIVACAINE/EPINEPHRINE 0.5% MPF 1:200,000 30 ML VIAL ONE (16:43)
[2017-03-22] MEDS ORDERED: ATROPINE SULFATE 0.1 MG/ML 5ML SYR IV PRN (17:15)
[2017-03-22] MEDS ORDERED: ONDANSETRON INJ 2 MG/ML 2 ML VIAL IV PRN (17:15)
[2017-03-22] MEDS ORDERED: EpHEDrine SULFATE INJ 50 MG/ML AMP IV PRN (17:15)
[2017-03-22] MEDS ORDERED: FENTANYL CITRATE INJ 50 MCG/1 ML 2 ML VIAL IV PRN (17:15)
[2017-03-22] MEDS ORDERED: CEFAZOLIN SOD 1 GM VIAL ONE (17:29)
--- NOTE | 2017-03-22 19:06 | Anesthesiology Progress Note ---
Anesthesia Post Op Note Date & Time Mar 22, 2017 at 19:05 Vital Signs Pain Intensity: 0 Vital Signs Past 12 Hours Date Time Temp Pulse Resp B/P (MAP) Pulse Ox O2 Delivery O2 Flow Rate FiO2 03/22/17 18:55 105 26 119/86 92 Nasal Cannula 4 03/22/17 18:45 87 26 127/59 96 Oxymask 10 03/22/17 18:35 36.2 97 26 135/68 88 Oxymask 10 03/22/17 08:10 Nasal Cannula 3.0 03/22/17 07:30 36.7 82 20 127/78 (94) 96 Nasal Cannula 3.0 Notes Mental Status: alert / awake / arousable, participated in evaluation, see Notes Pt Amnestic to Procedure: Yes Nausea / Vomiting: adequately controlled Pain: adequately controlled Airway Patency, RR, SpO2: stable & adequate BP & HR: stable & adequate Hydration State: stable & adequate Neuraxial Anesthesia: was administered, sensory block is resolving Anesthetic Complications: no major complications apparent Patient at baseline mental status (dementia)
[2017-03-22] MEDS ORDERED: MAGNESIUM HYDROXIDE SUSP 30 ML UDC PO PRN (19:30)
[2017-03-22] MEDS ORDERED: BISACODYL 10 MG SUPP PR PRN (19:30)
--- NOTE | 2017-03-22 19:30 | [facility] Post Operative Brief Note ---
Immediate Operative Summary Operative Date Mar 22, 2017. Pre-Operative Diagnosis Left displaced subcapital femoral neck fracture, and Left non- displaced distal radius fracture Post-Operative Diagnosis same Procedure(s) Performed Left bipolar hip arthroplasty- cemented and casting of left wrist Surgeon Dr Fabricio Celaya Offensive Coordinator Surgeon(s) El Simons PA-C Estimated Blood Loss 200ML Findings Left Displaced Femoral Neck Fracture Left Distal Radius Fracture Specimens a.Left Femoral Head Drains None Anesthesia Spinal Complication(s) None Disposition Recovery Room / PACU
[2017-03-22 19:55] VITALS: BP 158/69; PULSE 117; TEMP 37; O2SAT 93
--- NOTE | 2017-03-22 20:00 | DIAGNOSTIC IMAGING REPORT ---
L HIP UNILATERAL 2 VIEWS CLINICAL HISTORY: Left Hip Replacement. COMPARISON: Pelvis and left femur radiographs March 20, 2017. FINDINGS: Alignment of the total left hip arthroplasty is anatomic. No periprosthetic fracture or unexpected radiopaque foreign bodies are present. There are skin randi. Previous right femoral internal fixation is noted. IMPRESSION: Expected findings following total left hip arthroplasty. Electronically signed by: Steve Tello M.D. 03/22/2017 7:58 PM Dictated Date/Time: 03/22/2017 7:57 PM
[2017-03-22 20:28] VITALS: BP 154/91; PULSE 127; TEMP 36.6; O2SAT 93; O2SAT 95
--- NOTE | 2017-03-22 20:34 | Progress Note ---
Subjective Date of Service: Mar 22, 2017. Subjective Pt evaluation today including: conversation w/ patient, physical exam, chart review, lab review, review of inpatient medication list feeling ok - limited ability to glean HPI and ROS but no complaints denies pain denies SOB Problem List Medical Problems: (1) Abscess or cellulitis of ankle Status: Acute (2) Hip fracture Status: Acute (3) Hypoxia Status: Acute (4) NSTEMI (non-ST elevated myocardial infarction) Status: Acute (5) Pneumonia Status: Acute Review of Systems ROS otherwise unobtainable except for as above Objective Vital Signs Date Time Temp Pulse Resp B/P (MAP) Pulse Ox O2 Delivery O2 Flow Rate FiO2 03/22/17 20:28 93 Nasal Cannula 4.0 03/22/17 20:28 36.6 127 22 154/91 (112) 95 Nasal Cannula 4.0 03/22/17 19:55 37.0 117 20 158/69 (98) 93 Nasal Cannula 4.0 03/22/17 19:30 113 21 132/89 92 Nasal Cannula 4 03/22/17 19:15 103 24 133/71 92 Nasal Cannula 4 03/22/17 19:05 36.9 104 24 152/80 92 Nasal Cannula 4 03/22/17 18:55 105 26 119/86 92 Nasal Cannula 4 03/22/17 18:45 87 26 127/59 96 Oxymask 10 03/22/17 18:35 36.2 97 26 135/68 88 Oxymask 10 03/22/17 08:10 Nasal Cannula 3.0 03/22/17 07:30 36.7 82 20 127/78 (94) 96 Nasal Cannula 3.0 03/21/17 23:09 36.3 96 18 147/72 (97) 94 Nasal Cannula 3.0 03/21/17 23:05 96 Nasal Cannula 3.0 03/21/17 20:48 91 139/75 (96) Physical Exam General Appearance: no apparent distress Eyes: EOMI ENT: hearing grossly normal Neck: trachea midline Respiratory/Chest: no respiratory distress, no accessory muscle use Extremities: normal range of motion Neurologic/Psychiatric: manager commodities II-XII nml as tested, alert, + disoriented Skin: normal color Laboratory Results Last 24 Hours Test 03/22/17 06:04 White Blood Count 8.30 K/uL Red Blood Count 3.04 M/uL Hemoglobin 8.5 g/dL Hematocrit 27.4 % Mean Corpuscular Volume 90.1 fL Mean Corpuscular Hemoglobin 28.0 pg Mean Corpuscular Hemoglobin Concent 31.0 g/dl RDW Standard Deviation 56.1 fL RDW Coefficient of Variation 16.8 % Platelet Count 192 K/uL Mean Platelet Volume 9.7 fL Sodium Level 138 mmol/L Potassium Level 3.9 mmol/L Chloride Level 105 mmol/L Carbon Dioxide Level 25 mmol/L Anion Gap 8.0 mmol/L Blood Urea Nitrogen 26 mg/dl Creatinine 1.09 mg/dl Est Creatinine Clear Calc Drug Dose 22.6 ml/min Estimated GFR () 52.1 Estimated GFR (Non- 45.0 BUN/Creatinine Ratio 24.1 Random Glucose 109 mg/dl Calcium Level 8.7 mg/dl Magnesium Level 1.9 mg/dl Assessment and Plan Left Subcapital Hip Fx and L Fx of Distal Radial Metaphysis and Triquetrum: - appearing stable, for surgery, pain controlled, PT/OT anticipate return to [facility] Chronic Aspiration: - Video swallow on previous admission revealed aspiration of thin, pudding, and nectar thick liquids -- Apparently aspiration issues resolving with a normal video swallow on follow-up? - Patient was oral pocketing during breakfast and will utilize pureed diet - Patient was previously comfort measures and currently revoked at this time due to improvement per family - ongoing aspiration precautions but no evidence of acute problems at this time Vitamin D Deficiency and Osteopenia: - replace D, repeat in ~3 months, outpt med management regarding bisphosphonates /etc CKD Stage III: STABLE - Continue to monitor kidney function and avoid nephrotoxic agents HTN: - Norvasc 5 mg daily, Clonidine 0.1 mg daily, and Lopressor 12.5 mg BID, BPs reasonable Depression/Anxiety: - Paxil 20 mg daily GERD: - Ranitidine 150 mg daily Code Status: see 03/21 discussion - DNR Continued [facility] stay due to: ambulation difficulties Discharge planning: snf facility
[2017-03-22] MEDS ORDERED: DOCUSATE SODIUM/SENNA 50/8.6MG TAB PO SCH (21:00)
[2017-03-22 21:01] VITALS: BP 142/71; PULSE 115; TEMP 36.9; O2SAT 92
[2017-03-22 21:58] VITALS: BP 144/92; PULSE 108; TEMP 36.5; O2SAT 94
[2017-03-22] MEDS: DOCUSATE SODIUM/SENNA 50/8.6MG TAB PO SCH (22:07)
[2017-03-22 22:49] VITALS: BP_SYST 119; BP_SYST 151; BP_DIAS 72; BP_DIAS 85; PULSE 108; PULSE 86; TEMP 36.5; TEMP 37.2; O2SAT 92; O2SAT 96
[2017-03-23] VITALS (14 sets, daily range): BP systolic 96–162; BP diastolic 50–80; PULSE 70–114; TEMP 36.4–37.4; O2SAT 92–100
--- NOTE | 2017-03-23 00:35 | OPERATIVE REPORT ---
DATE OF OPERATION: 03/22/2017 SURGEON: Fabricio Celaya MD CORPORATE SAFETY MANAGER: ROBBIN Gray. PREOPERATIVE DIAGNOSES: 1. Left displaced femoral neck fracture. 2. Left nondisplaced distal radius fracture. POSTOPERATIVE DIAGNOSES: Same. PROCEDURES PERFORMED: 1. Left cemented bipolar hip arthroplasty. 2. Casting of left nondisplaced distal radius fracture. COMPLICATIONS: None. ESTIMATED BLOOD LOSS: 200 mL. FLUID REPLACEMENT: 700 mL crystalloid fluid replacement. ANESTHESIA: Spinal. DRAINS: None. SPECIMENS: Left femoral head sent for pathology. OPERATIVE INDICATIONS: The patient is an 89-year-old fairly demented female who sustained a fall 2 days ago. She was found on the floor. She previously walked with a walker but really spent most of the time in a chair. Pretty severe dementia. She was brought to Emergency Room where x-rays revealed a displaced femoral neck fracture without arthritis. She also has a nondisplaced distal radius fracture and triquetrum fracture. The patient was admitted to the hospital, medically optimized and indicated for surgical treatment for her hip fracture. OPERATIVE IMPLANTS: Operative implants consisted of: 1. A Biomet polished size 9 generation 4 cemented femoral stem. 2. 0+/28 mm articular ball. 3. A 41 mm bipolar shell and liner. 4. A size 9 centralizer. 5. Small distal cement restrictor. OPERATIVE PROCEDURE: The patient taken to the operating room, identified and placed on the operating table in supine position. All contact areas were appropriately padded. The patient was given some preoperative antibiotics. We gave her an additional 1 gram of IV Ancef. A spinal anesthetic was implemented by the anesthesia team. The patient was then placed in the right lateral decubitus position. An axillary roll was placed. Stulberg hip positioner was used for positioning. The left hip and leg were then scrubbed with Hibiclens and then prepped with ChloraPrep and draped in the usual sterile fashion. A posterolateral approach to the left hip was then performed through a curvilinear incision centered over the greater trochanter. Sharp dissection was carried through the subcutaneous tissues down to the level of the IT band and gluteal fascia. The IT band and gluteal fascia was incised longitudinally in line with skin incision. The underlying greater trochanteric bursa was excised. There was quite a bit of edema in the soft tissues around the hip area. The piriformis and external rotators were tagged and taken very carefully off the posterior aspect of the hip joint capsule. Great care was taken throughout the procedure to protect the sciatic nerve at all times. A posterior capsular incision was made to allow for later repair of the flaps. The hip was internally rotated. The femoral head was removed and sent for pathology. It was sized to a size 41. A femoral neck osteotomy cut was made just below the base of the fracture. This was removed and sent for pathology. The femur was retracted anteriorly. We trialed the acetabulum and a 41 mm ball fit appropriately. Attention was then drawn to the femur. The proximal femur was entered with a [employer] cutter, followed by canal finder and lateralizing reamer. I broached beginning with a 7 and progressing up to a 9. The 9 fit extremely well. We then trialed the hip and the +5 articular ball provided full stability and appropriate soft tissue tension and leg lengths. We elected to use these implants. All trial implants were removed. A cement restrictor was placed 14 cm down the canal. The canal was irrigated and brushed. A double batch of Palacos G cement was mixed and injected into the canal. A size 9 femoral stem with a 9 centralizer was then inserted and I tried to put this in as much anteversion as I could, concerning her dementia. All extraneous cement was removed. Once the cement hardened, a 0/28 mm articular ball was placed, followed by a 41 bipolar shell and liner. The hip was located and once again found to be stable. Attention was then drawn toward closing. I did inject locally with 30 mL of 0.5% Marcaine with epinephrine. The posterior capsule was then repaired with #2 Ti-Cron suture. The piriformis and external rotators were then repaired to the posterior aspect of the hip abductors with #2 Ti-Cron suture. The IT band and gluteal fascia were then closed with #1 PDS suture in running fashion. The subcutaneous tissues were then closed with 2 layers with the deep layer #2 Vicryl suture in a buried interrupted fashion, the subcutaneous tissue with 2-0 Dexon suture in a buried interrupted fashion. Skin was closed with skin randi. The leg was then cleaned and dried and a sterile dressing of Xeroform, 4 x 4s, ABD pad and Medipore tape were applied. The patient was then placed back on the transport bed in the supine position. Attention was then drawn toward casting. Holding the arm in neutrally aligned and slight ulnar deviation, a stockinette was placed, followed by a well-padded short arm fiberglass cast. This was held until the fiberglass hardened. Once this was complete, the patient was then taken to the recovery room in stable condition. The patient tolerated the procedure well with no complications. All needle and sponge counts were correct at the end of the operation. I attest to the content of the Intraoperative Record and any orders documented therein. Any exception s are noted below.
[2017-03-23] MEDS: CEFAZOLIN 1000MG IV PUSH 5 ML IV SCH ×2 (01:10→08:46)
[2017-03-23] MEDS: LACTATED RINGER'S 1000ML 1,000 ML IV SCH ×2 (04:33→14:09)
[2017-03-23 08:11] LABS: HEMATOCRIT 25.1 % (37-47); MEAN CELL VOLUME 88.4 fL (80-100); MEAN CORPUSCULAR HEMOGLOBIN 27.5 pg (25-34); MEAN CORPUSCULAR HGB CONC 31.1 g/dl (32-36); MEAN PLATELET VOLUME 10.5 fL (7.4-10.4); PLATELET COUNT 202 K/uL (130-400); RED BLOOD COUNT 2.84 M/uL (4.2-5.4); WHITE BLOOD COUNT 6.31 K/uL (4.8-10.8)
[2017-03-23 08:42] LABS: CALCIUM 8.7 mg/dl (8.5-10.1); CREATININE 0.99 mg/dl (0.60-1.20); POTASSIUM 3.5 mmol/L (3.5-5.1)
--- NOTE | 2017-03-23 08:42 | PROGRESS NOTE ---
DATE: 03/23/2017 DATE: 03/23/2017 SUBJECTIVE: An 89-year-old female with pretty severe dementia postop day 1 from a left cemented bipolar hip arthroplasty for fracture and casting of left distal radius fracture. She is lying in bed and being observed by an attendant. She was pulling on things over the night but otherwise pretty restful. No new complaints. She denies any significant pain upon asking. OBJECTIVE: VITAL SIGNS: Temperature is 37.4. Vital signs stable. Some mild tachycardia. PHYSICAL EXAMINATION: GENERAL: Reveals an elderly female. She is lying in bed. She follows simple commands but really cannot give much history. She denies any pain. EXTREMITIES: Examination of left hip and leg reveals the leg lengths to be equal. Dressing is clean, dry and intact. Thigh is soft and supple. She does dorsiflex and plantarflex her foot on command. Examination of the left arm reveals the short arm cast to be fitting well. Some bruising throughout her fingers. Mild swelling. She can flex and extend her fingers appropriately. LABORATORY DATA: Labs are pending. ASSESSMENT: An 89-year-old female postop day 1 from a left cemented bipolar hip arthroplasty for fracture and casting of the left distal radius fracture with pretty severe dementia. Orthopedically, she appears pretty stable. I do think she is anemic without any obvious symptom but it is going to be difficult to discern symptoms in this patient. I do think she came to the hospital hydrated as her creatinine was fairly high and it has come down with hydration which has also diluted her blood count. She did not lose much blood at the time of surgery, but I think most of her blood loss is from the fracture and hemodilution over time. PLAN: 1. DVT prophylaxis. We will try TEDs and SCDs. She cannot take aspirin apparently. We may put her on a low dose Lovenox beginning 24 hours postop. I do think she is at significant fall risk, so I would not do anything more aggressive than that. I do not think she is going to be a whole lot less mobile than what she normally it and I personally think the risks of a blood clot are less than further falls at this point. 2. PT/OT. She can weightbear as tolerated. She will use her left arm for weightbearing purposes. She should obey total hip precautions as much as possible. 3. Medical management as per the medicine service. 4. Disposition. Once she is medically stable she is probably okay for discharge at any time. Any orthopedic questions can be directed to me at at [phone]. I need to see her back 2 weeks after surgery.
[2017-03-23] MEDS: ACETAMINOPHEN IV PRN (08:46)
--- NOTE | 2017-03-23 08:48 | Discharge Instructions ---
Discharge Instructions Date of Service Mar 23, 2017. Admission Reason for Admission: Hip Fracture Discharge Discharge Diagnosis / Problem: Left Hip Arthropladty for fracture + Left Wrist Fracture Discharge Goals Goal(s): Decrease discomfort, Improve function, Increase independence, Improve disease control, Therapeutic intervention Activity Recommendations Activity Level: Assistance Required Therapies: Physical Therapy (Total Hip Precautions), Occupational Therapy ( Total Hip Precautions) Weightbearing Status: Left weightbearing . Additional Information Patient informed of condition: Yes Advance Directives: Yes DNR: Yes Level of Care: Skilled Communicable Disease: No Prognosis: Improving Instructions / Follow-Up Instructions / Follow-Up ACTIVITY RECOMMENDATIONS: Physical Therapy: * Aggressive physical therapy is not usually needed. You will learn to take care of yourself safely and walk. * Follow the "Hip Precautions Instructions." * In some cases, the criminal justice social worker at the hospital will arrange to have a therapist come to your house for the first couple of weeks to help you learn these skills. * You need to practice on your own or with the help of a family member as needed. * When you learn these skills, most of the therapy can be done on your own. Home Exercise: * You were shown a series of exercises in the hospital. Do these exercises three to four times each day including the exercises you were shown in physical therapy. Walking: * Get up and walk several times each day. For the first four weeks, try not to stand or walk for more than one hour at a time. If you do stand or walk for more than one hour, you will not hurt anything, but your leg will likely swell. * As you feel comfortable, you may change from the walker or crutches to a cane and then to independent walking. MEDICATIONS: New Medicine: * You will likely be taking one or more of these medicines: 1. Tramadol - Take, as directed, when you need it, every four to six hours to control your pain. 2. Iron Sulfate - Take three times each day for the month after surgery to help you replace the blood lost during surgery. * The most common side effects of pain medicine and iron are nausea and constipation. If nausea or constipation is too much of a problem or if you have any questions about your new medicines or doses, call [facility] at . We will try to help you manage these issues. VERY IMPORTANT TO READ AND REVIEW" Pain: * The immediate post-operative period after hip replacement surgery is often quite painful. * You are given a prescription for pain medicine. You should take it, as directed, when you need it, especially before physical therapy and before going to bed. Pain that interferes with sleep is very common and can last several months. * You will likely need pain medicine for the first two to four weeks. It will not stop all of the pain. The pain will lessen and as you feel better, you may change to milder pain medicine such as Tylenol. * The most common side effects of pain medicine are nausea and constipation, so don't take more than you need. SPECIAL CARE INSTRUCTIONS: TEDs/Elastic Stockings: * The white elastic stockings help limit swelling and prevent blood clots from forming in your legs. The more you wear them, the more they work. * Wear them for six weeks. Prevention of Infection: * Take antibiotics one hour before any dental cleaning, dental work, urological procedure, gastrointestinal procedure or any invasive surgery in order to prevent your new joint from getting infected. * You may get the antibiotics from the doctor performing the procedure or you may call our office at before and we will call in a prescription to the pharmacy of your choice. Things to Watch For: * Drainage from the incision site that occurs more than one week after your surgery. * Severely increased leg pain or swelling. * Increased redness at the incision site. * Fever above 102 degrees Fahrenheit. * Unusual chest pain or shortness of breath. * Unusual pain or burning with urination. Call [facility] at with any of the above problems or if you have any questions about your medicines or recovery. FOLLOW UP VISIT: Make an appointment to see your doctor for approximately two weeks after surgery for a progress check and staple removal by calling the office at . Current Hospital Diet Patient's current hospital diet: AHA Diet (Heart Healthy) Discharge Diet Recommended Diet: AHA Diet (Heart Healthy) Procedures Procedures Performed: Left bipolar hip arthroplasty- cemented and casting of left wrist Pending Studies Studies pending at discharge: no Laboratory Results Hemoglobin A1c Test 01/01/17 15:56 Range/Units Estimated Average Glucose 111 mg/dl Hemoglobin A1c 5.5 4.5-5.6 % Medical Emergencies . Who to Call and When: Medical Emergencies: If at any time you feel your situation is an emergency, please call 911 immediately. . Non-Emergent Contact Non-Emergency issues call your: Surgeon . . "Provider Documentation" section prepared by Fabricio Celaya. . Core Measure Problem Core Measures: None
[2017-03-23] MEDS ORDERED: ERGOCALCIFEROL 50,000 INTER.UNIT CAP PO SCH (09:00)
[2017-03-23] MEDS: CLONIDINE HCL 0.1 MG TAB PO SCH (09:39)
[2017-03-23] MEDS: CHOLECALCIFEROL 1000 INTER.UNIT TAB PO SCH (09:40)
[2017-03-23] MEDS: PAROXETINE 20 MG TAB PO SCH (09:40)
[2017-03-23] MEDS: AMLODIPINE BESYLATE 5 MG TAB PO SCH (09:40)
[2017-03-23] MEDS: RANITIDINE HCL 150 MG TAB PO SCH (09:40)
[2017-03-23] MEDS: METOPROLOL TARTRATE 25 MG TAB PO SCH ×2 (09:40→20:26)
--- NOTE | 2017-03-23 17:50 | Progress Note ---
Subjective Date of Service: Mar 23, 2017. Subjective no meaningful HPI or ROS obtainable nursing notes that she was nonspecifically diaphoretic - or really more just sweaty - earlier - no fever, no clear distress Problem List Medical Problems: (1) Abscess or cellulitis of ankle Status: Acute (2) Hip fracture Status: Acute (3) Hypoxia Status: Acute (4) NSTEMI (non-ST elevated myocardial infarction) Status: Acute (5) Pneumonia Status: Acute Review of Systems ROS otherwise unobtainable except for as above Objective Vital Signs Date Time Temp Pulse Resp B/P (MAP) Pulse Ox O2 Delivery O2 Flow Rate FiO2 03/23/17 15:37 36.8 82 16 118/68 (85) 92 Nasal Cannula 2.0 03/23/17 15:25 36.8 82 16 118/68 94 2.0 03/23/17 14:25 36.6 70 18 101/58 95 03/23/17 13:25 37.2 75 18 96/50 97 2.0 03/23/17 12:55 36.5 75 18 100/50 03/23/17 12:24 37.3 75 18 106/52 100 2.0 03/23/17 12:10 36.4 75 18 105/60 03/23/17 11:52 36.6 75 19 117/62 03/23/17 11:25 36.6 74 18 117/62 (80) 98 Nasal Cannula 2.0 03/23/17 10:08 37.4 92 19 142/72 (95) 98 Nasal Cannula 3.0 03/23/17 08:02 37.4 102 20 162/78 (106) 95 Nasal Cannula 3.0 03/23/17 08:00 Nasal Cannula 4.0 03/23/17 03:31 36.6 114 21 133/73 (93) 92 Nasal Cannula 2.0 03/22/17 23:13 Nasal Cannula 4.0 03/22/17 22:49 36.5 108 18 151/85 (107) 92 Nasal Cannula 4.0 03/22/17 22:49 37.2 86 19 119/72 (88) 96 Room Air 2.0 03/22/17 21:58 36.5 108 18 144/92 (109) 94 Nasal Cannula 03/22/17 21:01 36.9 115 142/71 (94) 92 Nasal Cannula 4.0 03/22/17 20:28 93 Nasal Cannula 4.0 03/22/17 20:28 36.6 127 22 154/91 (112) 95 Nasal Cannula 4.0 03/22/17 19:55 Nasal Cannula 4.0 03/22/17 19:55 37.0 117 20 158/69 (98) 93 Nasal Cannula 4.0 03/22/17 19:30 113 21 132/89 92 Nasal Cannula 4 03/22/17 19:15 103 24 133/71 92 Nasal Cannula 4 03/22/17 19:05 36.9 104 24 152/80 92 Nasal Cannula 4 03/22/17 18:55 105 26 119/86 92 Nasal Cannula 4 03/22/17 18:45 87 26 127/59 96 Oxymask 10 03/22/17 18:35 36.2 97 26 135/68 88 Oxymask 10 Physical Exam General Appearance: no apparent distress Eyes: EOMI ENT: hearing grossly normal Neck: trachea midline Respiratory/Chest: no respiratory distress, no accessory muscle use Neurologic/Psychiatric: 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 park 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 II-XII nml as tested, alert, normal mood/affect Skin: normal color, warm/dry Laboratory Results Last 24 Hours Test 03/23/17 07:29 White Blood Count 6.31 K/uL Red Blood Count 2.84 M/uL Hemoglobin 7.8 g/dL Hematocrit 25.1 % Mean Corpuscular Volume 88.4 fL Mean Corpuscular Hemoglobin 27.5 pg Mean Corpuscular Hemoglobin Concent 31.1 g/dl RDW Standard Deviation 54.1 fL RDW Coefficient of Variation 16.7 % Platelet Count 202 K/uL Mean Platelet Volume 10.5 fL Sodium Level 137 mmol/L Potassium Level 3.5 mmol/L Chloride Level 105 mmol/L Carbon Dioxide Level 23 mmol/L Anion Gap 9.0 mmol/L Blood Urea Nitrogen 23 mg/dl Creatinine 0.99 mg/dl Est Creatinine Clear Calc Drug Dose 24.9 ml/min Estimated GFR () 58.6 Estimated GFR (Non- 50.5 BUN/Creatinine Ratio 23.0 Random Glucose 151 mg/dl Calcium Level 8.7 mg/dl Assessment and Plan Left Subcapital Hip Fx and L Fx of Distal Radial Metaphysis and Triquetrum: - appearing stable, post op - anticipate return to SNF sweaty/?briefly diaphoretic -no s/s infection - EKG For completeness - suggests Q waves V1, V2, but situation overall does not suggest TX and EKG difference appears more than likely related to lead placement - repeat EKG and check troponin for completeness Chronic Aspiration: - Video swallow on previous admission revealed aspiration of thin, pudding, and nectar thick liquids -- Apparently aspiration issues resolving with a normal video swallow on follow-up? - Patient was oral pocketing during breakfast and will utilize pureed diet - Patient was previously comfort measures and currently revoked at this time due to improvement per family - ongoing aspiration precautions but no evidence of acute problems at this time , looking stable Vitamin D Deficiency and Osteopenia: - replace D, repeat in ~3 months, outpt med management regarding bisphosphonates /etc CKD Stage III: STABLE - Continue to monitor kidney function and avoid nephrotoxic agents HTN: - Norvasc 5 mg daily, Clonidine 0.1 mg daily, and Lopressor 12.5 mg BID, BPs overall good Depression/Anxiety: - Paxil 20 mg daily GERD: - Ranitidine 150 mg daily Code Status: see 03/21 discussion - DNR DVT proph - start lovenox tomorrow Continued [facility] stay due to: ambulation difficulties Discharge planning: nursing home facility
[2017-03-23] MEDS: DOCUSATE SODIUM/SENNA 50/8.6MG TAB PO SCH (20:25)
[2017-03-24] MEDS: LACTATED RINGER'S 1000ML 1,000 ML IV SCH (03:04)
[2017-03-24] MEDS ORDERED: NURSING VERBAL MED ORDER ONE (05:45)
[2017-03-24] MEDS ORDERED: POLYETHYLENE (MIRALAX) 17 GM PACK PO SCH (06:00)
[2017-03-24 07:16] VITALS: BP 135/70; PULSE 83; TEMP 37.2; O2SAT 96
[2017-03-24 07:53] LABS: HEMATOCRIT 26.7 % (37-47); MEAN CELL VOLUME 87.3 fL (80-100); MEAN CORPUSCULAR HEMOGLOBIN 28.1 pg (25-34); MEAN CORPUSCULAR HGB CONC 32.2 g/dl (32-36); MEAN PLATELET VOLUME 10.3 fL (7.4-10.4); PLATELET COUNT 213 K/uL (130-400); RED BLOOD COUNT 3.06 M/uL (4.2-5.4); WHITE BLOOD COUNT 7.51 K/uL (4.8-10.8)
[2017-03-24 08:24] LABS: CALCIUM 8.3 mg/dl (8.5-10.1); CREATININE 0.79 mg/dl (0.60-1.20); POTASSIUM 3.1 mmol/L (3.5-5.1)
[2017-03-24] MEDS ORDERED: HEPARIN SOD 5000 UNIT/0.5 ML CARP SQ SCH (09:00)
[2017-03-24] MEDS ORDERED: ENOXAPARIN 30 MG/0.3 ML SYR SQ SCH (09:00)
[2017-03-24] MEDS ORDERED: SENN8.6T7 PO (09:28)
[2017-03-24] MEDS: METOPROLOL TARTRATE 25 MG TAB PO SCH (09:28)
[2017-03-24] MEDS ORDERED: ERGO500011 PO (09:28)
[2017-03-24] MEDS ORDERED: VTMD1000 PO (09:28)
[2017-03-24] MEDS ORDERED: MORP20SO PO (09:28)
[2017-03-24] MEDS ORDERED: MRLP17X PO (09:28)
[2017-03-24] MEDS: RANITIDINE HCL 150 MG TAB PO SCH (09:29)
[2017-03-24] MEDS: PAROXETINE 20 MG TAB PO SCH (09:29)
[2017-03-24] MEDS: AMLODIPINE BESYLATE 5 MG TAB PO SCH (09:29)
[2017-03-24] MEDS: CLONIDINE HCL 0.1 MG TAB PO SCH (09:29)
[2017-03-24] MEDS: CHOLECALCIFEROL 1000 INTER.UNIT TAB PO SCH (09:30)
--- NOTE | 2017-03-24 09:58 | PROGRESS NOTE ---
DATE: 03/24/2017 DATE: 03/24/2017 SUBJECTIVE: A 89-year-old white female postop day 2 from a left cemented bipolar hip arthroplasty for fracture and casting of the wrist fracture. She looks about like at baseline. She does follow commands. Denies any real significant pain. OBJECTIVE: VITAL SIGNS: Temperature 37.2. Vital signs stable. PHYSICAL EXAMINATION: GENERAL: Elderly demented female. The patient is lying in bed, looks pretty comfortable. EXTREMITIES: Examination of the left leg reveals the leg to be well aligned. Her incision is clean, dry and intact without significant drainage. Thigh is soft and supple. She does dorsiflex and plantarflex her foot on command. Examination of the left arm reveals a short arm cast is fitting well. No areas of irritation. LABORATORY DATA: Hemoglobin 8.6, hematocrit 26.7. Electrolytes are stable. Creatinine stable. Potassium a little bit low at 3.1. ASSESSMENT: An 89-year-old white female postop day 2 from a left cemented bipolar hip arthroplasty for fracture and casting of a wrist fracture. She looks to be at baseline. PLAN: 1. DVT prophylaxis including thigh-high TEDs, SCDs. She has an aspirin allergy. We will likely treat her with low dose of Lovenox in the hospital, but I would recommend no anticoagulation on discharge. I think the risks outweigh the benefits. 2. PT/OT. She can fully weightbear as tolerated. Left total hip protocol, left side. 3. A cast left upper extremity. She can use his arm within the limits of the cast. 4. Medical management as per the medicine service with potassium supplementation. 5. Disposition. She is going to be discharged back to [facility]. She is orthopedically stable and acceptable for discharge at any time. I need to see her back 2 weeks postop. Any orthopedic questions can be directed to me at [phone].
[2017-03-24 10:04] VITALS: BP 135/70; PULSE 83; TEMP 37.2; O2SAT 96
[2017-03-24] MEDS: ACETAMINOPHEN IV PRN (10:46)
[2017-03-24 12:43] VITALS: BP 135/70
[2017-03-24 15:50] VITALS: BP 110/65; PULSE 75; TEMP 36.5; O2SAT 99
--- NOTE | 2017-03-24 21:42 | Discharge Summary ---
Discharge Summary Date of Service Mar 24, 2017. Discharge Summary Admission Date: Mar 21, 2017 at 02:36 Discharge Date: Mar 24, 2017 Discharge Disposition: halfway facility Principal Diagnosis: osteoporotic hip fracture Immunizations: Have You Had Influenza Vaccine: Yes History of Tetanus Vaccine?: YES-2000 History of Pneumococcal: Unknown History of Hepatitis B Vaccine: No Procedures: Immediate Operative Summary Operative Date Mar 22, 2017. Pre-Operative Diagnosis Left displaced subcapital femoral neck fracture, and Left non- displaced distal radius fracture Post-Operative Diagnosis same Procedure(s) Performed Left bipolar hip arthroplasty- cemented and casting of left wrist Surgeon Dr Fabricio Celaya Cage Fighter Surgeon(s) El Sim[place] PA-C Estimated Blood Loss 200ML Findings Left Displaced Femoral Neck Fracture Left Distal Radius Fracture Specimens a.Left Femoral Head Drains None Anesthesia Spinal Complication(s) None Disposition Recovery Room / PACU <Electronically signed by Fabricio Celaya M.D.> Signed: 03/22/17 193 Signed: Last Resulted CBC 03/24/17 07:09 Last Resulted BMP 03/24/17 07:09 Item Value Date Time 25-Hydroxy Vitamin D Total 10.6 ng/ml L 03/21/17 0856 Medication Reconciliation New Medications: Cholecalciferol (Vitamin D3) 1,000 Inter.unit Tab 2000 INTER.UNIT PO QAM, #30 TAB Ergocalciferol (Vitamin D 76546 Unit) 50,000 Unit Cap 05513 INTERUNIT PO Sa@0900, #12 CAP Polyethylene (Miralax) 17 Gm Pow 17 GM PO DAILY PRN for Constipation, #30 PKT Sennosides-Docusate Sodium (Senokot S) 1 Tab Tab 2 TAB PO HS, #30 TAB Continued Medications: Acetaminophen (Tylenol Arthritis Ext Rel) 650 Mg Cplt 650 MG PO Q6H PRN for Pain or Fever, CAP Acetaminophen (Tylenol) 650 Mg Supp 650 MG SD Q6H PRN for Pain or Fever Amlodipine (Norvasc) 5 Mg Tab 5 MG PO QAM, TAB Clonidine Hcl (Catapres) 0.1 Mg Tab 0.1 MG PO QAM, TAB Ipratropium-Albuterol (Duoneb) 3 Ml Nebu 3 ML INH Q6H PRN for SOB/Wheezing, INHA Loratadine (Claritin) 10 Mg Tab 10 MG PO QAM PRN for ALLERGIC REACTION, 0 Refills Metoprolol Tartrate (Lopressor) (Lopressor) 25 Mg Tab 12.5 MG PO BID, TAB Morphine Sulfate (Morphine Sulfate) 20 Mg/5 Ml Alyse 5 MG PO Q8 PRN for ANXIETY/SOB, #1 VIAL (This prescription has been renewed) Paroxetine (Paxil) 20 Mg Tab 20 MG PO DAILY, TAB Ranitidine (Zantac) 150 Mg Tab 150 MG PO QAM, TAB Scopolamine (Scopolamine) 1 Mg/3 Days Dis 1 PATCH TD Q72HRS Discharge Exam Physical Exam: General Appearance: no apparent distress Eyes: EOMI ENT: hearing grossly normal Neck: trachea midline Respiratory/Chest: no respiratory distress, no accessory muscle use Neurologic/Psychiatric: medical transcription II-XII nml as tested, alert Skin: normal color, warm/dry Hospital Course Left Subcapital Hip Fx and L Fx of Distal Radial Metaphysis and Triquetrum: - appearing stable, post op - anticipate return to SNF later today sweaty/?briefly diaphoretic -no s/s infection - EKG For completeness - suggests Q waves V1, V2, but situation overall does not suggest ID and EKG difference appears more than likely related to lead placement - repeat EKG confirmed suspicion of lead placement, troponin so nominally elevated, could easily have been false positive or mild demand ischemia from entire situation Chronic Aspiration: - Video swallow on previous admission revealed aspiration of thin, pudding, and nectar thick liquids -- Apparently aspiration issues resolving with a normal video swallow on follow-up? - Patient was oral pocketing during breakfast and will utilize pureed diet - Patient was previously comfort measures and currently revoked at this time due to improvement per family - ongoing aspiration precautions but no evidence of acute problems at this time , looking stable, outpatient speech at [facility] Vitamin D Deficiency and Osteopenia: - replace D, repeat in ~3 months, outpt med management regarding bisphosphonates /etc CKD Stage III: STABLE - Continue to monitor kidney function and avoid nephrotoxic agents HTN: - Norvasc 5 mg daily, Clonidine 0.1 mg daily, and Lopressor 12.5 mg BID, BPs overall good Depression/Anxiety: - Paxil 20 mg daily GERD: - Ranitidine 150 mg daily Code Status: see 03/21 discussion - DNR DVT proph - was given low dose anticoagulant but ongoing pharmacologic DVT Proph +/- based on status Total Time Spent: Less than 30 minutes This includes examination of the patient, discharge planning, medication reconciliation, and communication with other providers. Discharge Instructions Please refer to the electronic Patient Visit Report (Discharge Instructions) for additional information.
--- NOTE | 2017-03-27 11:09 | EDITING REQUIRED CODING QUERY ---
CODING QUERY To promote full compliance with coding requirements relating to patient care, provider participation is requested in all cases of drum stock clerk uncertainty. Please assist us with the question(s) below: Coding Question(s): Osteoporotic hip fracture was documented on the DC summary. Please clarify if the patient's wrist fracture was also osteoporotic. Thank you for your help! (x ) Radius Fracture, due to osteoporosis ( ) Radius Fracture, not caused by osteoporosis ( ) Other, explain Thank you! Gladys Trimble Principal Diagnosis: "_that condition established after study, to be chiefly responsible for occasioning the admission of the patient to the hospital for care." Co-Existing Principal Diagnosis: "_when two or more diagnoses equally meet the criteria for principal diagnosis as determined by the circumstances of admission, diagnostic work up, and/or therapy provided, and the Alphabetic Index, Tabular List, or another coding guideline does not provide sequencing direction, any one of the diagnoses may be sequenced first." "When the physician has documented what appears to be a current diagnosis in the body of the record, but has not included the diagnosis in the final diagnostic statement, the physician should be asked whether the diagnosis should be added." (Source Coding Clinic 2 QTR90. p3-4)
== END 2017-03-24 18:00 | DRG 470 ==
LOC: EDBD 21:47 → C.EDA 21:51 → C.MSN 03-21 02:36 → ENRESERV 03-21 02:50
PROVIDERS: ADMIT Hospitalist; ATTEND Hospitalist
PROC: 0SRB0J9 Replacement of Left Hip Joint with Synthetic Substitute, Cemented, Open Approach (ICD-10-PCS; principal; 2017-03-22 07:30)
PROC: 0PSJXZZ Reposition Left Radius, External Approach (ICD-10-PCS; principal; 2017-03-22 07:30)
DX: M80.052A Age-related osteoporosis with current pathological fracture, left femur, initial encounter for fracture (principal); S52.592A Other fractures of lower end of left radius, initial encounter for closed fracture; N18.3 Chronic kidney disease, stage 3 (moderate); K21.9 Gastro-esophageal reflux disease without esophagitis; I12.9 Hypertensive chronic kidney disease with stage 1 through stage 4 chronic kidney disease, or unspecified chronic kidney disease; F03.90 Unspecified dementia, unspecified severity, without behavioral disturbance, psychotic disturbance, mood disturbance, and anxiety; F32.9 Major depressive disorder, single episode, unspecified; F41.9 Anxiety disorder, unspecified; R13.10 Dysphagia, unspecified; Z79.899 Other long term (current) drug therapy; W19.XXXA Unspecified fall, initial encounter; Z66 Do not resuscitate

== ENCOUNTER → 2017-04-25 | Outpatient (CLI) | payer OTHER ==
[~2017-04-25] MED LIST changes: +ACET650S10 PR; +ERGO500011 PO; -LPR25 PO; +METO25TA56 PO; +MORP20SO PO; +MRLP17X PO; +SCOP1DIS17 TD; +SENN8.6T7 PO; +VTMD1000 PO; -ZNT150 PO; +ZNTT/150 PO
[2017-04-25 08:20] LABS: BASO % 0.3 %; BASO ABS # 0.02 K/uL (0-0.2); COMPLETE YES; EOS % 4.5 %; IG% 0.2 %; LYMPH % 23.1 %; LYMPH ABS # 1.34 K/uL (1.2-3.4); MEAN CELL VOLUME 87.6 fL (80-100); MEAN CORPUSCULAR HEMOGLOBIN 27.5 pg (25-34); MEAN CORPUSCULAR HGB CONC 31.4 g/dl (32-36); MEAN PLATELET VOLUME 10.5 fL (7.4-10.4); MONO % 11.2 %; NEUT % 60.7 %; PLATELET COUNT 266 K/uL (130-400); RED BLOOD COUNT 3.31 M/uL (4.2-5.4); WHITE BLOOD COUNT 5.81 K/uL (4.8-10.8)
== END ==
LOC: C.LABCC 08:05
PROVIDERS: ATTEND Internal Medicine
DX: D64.9 Anemia, unspecified (principal)

== ENCOUNTER 2017-05-07 17:39 | Emergency (ER) | payer OTHER ==
[~2017-05-07] VITALS: Ht 142.2 cm; Wt 41.8 kg
[2017-05-07 17:45] VITALS: TEMP 36.7; Ht 142.2 cm; Wt 41.8 kg
--- NOTE | 2017-05-07 17:49 | EMERGENCY ROOM VISIT NOTE ---
History Report prepared by Javi: Louann Marsh Under the Supervision of: Dr. Nakul Lin D.O. First contact with patient: 17:41 Chief Complaint: HIP PAIN Stated Complaint: FALL, L HIP PAIN History of Present Illness The patient is a 89 year old female who presents to the Emergency Room with complaints of episode of a fall occurring just prior to arrival. Per EMS, the patient is from [facility] and she fell whenever she was getting into her wheel chair. The patient had another a fall in March where she broke her left wrist and hip. The patient has a history of dementia. The patient denies any pain but [facility] was concerned about the patient's left hip. History is limited secondary to the patient's dementia. Source of History: EMS History Limited By: dementia Onset: just prior to arrival Position: other (generalized) Quality: other (fall) Timing: other (episode) Review of Systems ROS limited secondary to the patient's dementia. 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 Surgical Problems: (1) Right femoral shaft fracture Family History Diabetes mellitus Social History Smoking Status: Unknown if Ever Smoked Alcohol Use: none Drug Use: none Housing Status: lives with family Occupation Status: retired Current/Historical Medications Scheduled Amlodipine (Norvasc), 5 MG PO QAM Cholecalciferol (Vitamin D3), 2,000 INTER.UNIT PO QAM Clonidine Hcl (Catapres), 0.1 MG PO QAM Ergocalciferol (Vitamin D 74549 Unit), 50,000 INTERUNIT PO Sa@0900 Metoprolol Tartrate (Lopressor) (Lopressor), 12.5 MG PO BID Paroxetine (Paxil), 20 MG PO DAILY Ranitidine (Zantac), 150 MG PO QAM Scopolamine (Scopolamine), 1 PATCH TD Q72HRS Sennosides-Docusate Sodium (Senokot S), 2 TAB PO HS Scheduled PRN Acetaminophen (Tylenol Arthritis Ext Rel), 650 MG PO Q6H PRN for Pain or Fever Acetaminophen (Tylenol), 650 MG MT Q6H PRN for Pain or Fever Ipratropium-Albuterol (Duoneb), 3 ML INH Q6H PRN for SOB/Wheezing Loratadine (Claritin), 10 MG PO QAM PRN for ALLERGIC REACTION Morphine Sulfate (Morphine Sulfate), 5 MG PO Q8 PRN for ANXIETY/SOB Polyethylene (Miralax), 17 GM PO DAILY PRN for Constipation Allergies Coded Allergies: Aspirin (Verified Allergy, Unknown, 01/01/17) ASA=NAUSEA NSAIDs (Verified Allergy, Unknown, `, 01/01/17) Physical Exam Vital Signs Date Time Temp Pulse Resp B/P (MAP) Pulse Ox O2 Delivery O2 Flow Rate FiO2 05/07/17 20:20 54 20 129/65 98 05/07/17 19:10 52 05/07/17 17:45 36.7 90 18 137/75 98 Room Air Physical Exam GENERAL: Patient is awake, alert, and in no acute distress. Patient is resting comfortably and showing no signs of anxiety EYES: The conjunctivae are clear. The pupils are round and reactive. EARS, NOSE, MOUTH AND THROAT: The nose is without any evidence of any deformity. Mucous membranes are moist tongue is midline NECK: The neck is nontender and supple. RESPIRATORY: Normal respiratory effort is noted there is no evidence of wheezing rhonchi or rales CARDIOVASCULAR: Regular rate and rhythm noted there no murmurs rubs or gallops normal S1 normal S2 GASTROINTESTINAL: The abdomen is soft. Bowel sounds are present in all quadrants. Abdomen is nontender PELVIS: The Pelvis is stable. No tenderness to palpation is noted. BACK: No midline tenderness or or step-off noted range of motion in flexion extension as well as rotation no signs of muscle spasm noted MUSCULOSKELETAL/EXTREMITIES: Splint on left wrist. no shortening appreciated in lower extremities, pain to palpitation over left knee, ROM of left hip produced mild pain. SKIN: There is no obvious evidence of any rash. There are no petechiae, pallor or cyanosis noted. NEUROLOGIC: Patient is awake alert and oriented to person and place but not time or situation. Strength is symmetric. Medical Decision & Procedures ER Provider Diagnostic Interpretation: Radiology results as stated below per my review and radiologist interpretation: L PELVIS/UNILATERAL HIP 2-3VIEWS FINDINGS: Left hip arthroplasty noted without evidence of complication. Previous right femoral internal fixation noted. Bones appear moderately demineralized. Healed remote appearing fracture of the inferior right pubic ramus. IMPRESSION: 1. No acute fracture or subluxation identified. 2. Left hip arthroplasty noted without evidence of hardware complication. The above report was generated using voice recognition software. It may contain grammatical, syntax or spelling errors. Electronically signed by: Jessica Lan KNEE 1 OR 2 VIEWS ROUTINE DISCUSSION: The bones and joint spaces appear intact. There is no evidence of fracture, dislocation or bony disease. There is no evidence for soft tissue swelling. IMPRESSION: Negative study. The above report was generated using voice recognition software. It may contain grammatical, syntax or spelling errors. Electronically signed by: Matthew Vinson M.D. ED Course 174: The patient was evaluated in room B11A. A complete history and physical examination were performed. 1909: Family a bedside. I updated the patient and her family on her X-ray results and told the patient to follow up with orthopedic physician .193: Upon reevaluation, the patient is resting comfortably. I discussed the results and treatment plan with her. She verbalized agreement of the treatment plan. The patient was discharged home. Medical Decision Differential diagnosis: Etiologies such as fracture, dislocation, intra-abdominal, pneumothorax, intrathoracic , intracranial, neurologic, as well as other traumatic pathologies were entertained. Additional history is obtained from the patient's family member. The patient is an 89-year-old female who has a history of dementia and recent left hip surgery who fell while she was at rehabilitation. The patient had some pain in her left hip with range of motion testing but her x-rays did not reveal any acute bony injury. The patient was reevaluated multiple times. She also had some knee pain on physical exam so an x-ray of her knee was obtained as well. I discussed the patient's review graphic studies with her daughter. She was encouraged to follow-up with her primary orthopedist as soon as possible for further evaluation but return to the emergency department if she was still unable to bear weight or continue with rehabilitation because of pain in the lower extremity. Medication Reconcilliation Current Medication List: was personally reviewed by me Blood Pressure Screening Patient's blood pressure: Normal blood pressure Impression Primary Impression: Fall Additional Impression: Contusion, hip Scribe Attestation The scribe's documentation has been prepared under my direction and personally reviewed by me in its entirety. I confirm that the note above accurately reflects all work, treatment, procedures, and medical decision making performed by me. Departure Information Dispostion Home / Self-Care Referrals [facility] (PCP) Forms HOME CARE DOCUMENTATION FORM, IMPORTANT VISIT INFORMATION, WORK / SCHOOL INSTRUCTIONS Patient Instructions ED Contusion Hip, My [facility] Additional Instructions Continue all medications as prescribed. Follow-up with your orthopedic physician as soon as possible. Problem Qualifiers Primary Impression: Fall Encounter type: initial encounter Qualified Codes: W19.XXXA - Unspecified fall, initial encounter Additional Impression: Contusion, hip Encounter type: initial encounter Laterality: left Qualified Codes: S70.02XA - Contusion of left hip, initial encounter
--- NOTE | 2017-05-07 18:37 | DIAGNOSTIC IMAGING REPORT ---
L KNEE 1 OR 2 VIEWS ROUTINE CLINICAL HISTORY: fall pain COMPARISON: None. DISCUSSION: The bones and joint spaces appear intact. There is no evidence of fracture, dislocation or bony disease. There is no evidence for soft tissue swelling. IMPRESSION: Negative study. The above report was generated using voice recognition software. It may contain grammatical, syntax or spelling errors. Electronically signed by: Matthew Vinson M.D. 05/07/2017 6:36 PM Dictated Date/Time: 05/07/2017 6:35 PM
--- NOTE | 2017-05-07 18:42 | DIAGNOSTIC IMAGING REPORT ---
L PELVIS/UNILATERAL HIP 2-3VIEWS HISTORY: 89 years-old Female fall acute left hip pain status post fall COMPARISON: Left hip radiographs 03/22/2017 TECHNIQUE: AP view the pelvis with 2 views of the left hip FINDINGS: Left hip arthroplasty noted without evidence of complication. Previous right femoral internal fixation noted. Bones appear moderately demineralized. Healed remote appearing fracture of the inferior right pubic ramus. IMPRESSION: 1. No acute fracture or subluxation identified. 2. Left hip arthroplasty noted without evidence of hardware complication. The above report was generated using voice recognition software. It may contain grammatical, syntax or spelling errors. Electronically signed by: Zoltan Milian M.D. 05/07/2017 6:41 PM Dictated Date/Time: 05/07/2017 6:35 PM
[2017-05-07 20:20] VITALS: BP 129/65; PULSE 54; O2SAT 98
== END 2017-05-07 20:20 | disposition home or self-care (01) ==
LOC: EDBD 17:39 → C.EDB 17:40 → C.EDA 20:20
DX: S70.02XA Contusion of left hip, initial encounter (principal); W07.XXXA Fall from chair, initial encounter; Y92.199 Unspecified place in other specified residential institution as the place of occurrence of the external cause; F03.90 Unspecified dementia, unspecified severity, without behavioral disturbance, psychotic disturbance, mood disturbance, and anxiety; N18.9 Chronic kidney disease, unspecified; K21.9 Gastro-esophageal reflux disease without esophagitis; I12.9 Hypertensive chronic kidney disease with stage 1 through stage 4 chronic kidney disease, or unspecified chronic kidney disease; Z83.3 Family history of diabetes mellitus; Z79.899 Other long term (current) drug therapy

== ENCOUNTER 2017-05-15 23:07 | Inpatient (IN) | payer OTHER ==
[~2017-05-15] VITALS: Ht 154.9 cm; Wt 42.1 kg
[2017-05-15] MEDS ORDERED: ONDANSETRON INJ 2 MG/ML 2 ML VIAL IV STA (23:25)
[2017-05-15] MEDS ORDERED: SODIUM CHLORIDE 0.9% 1000ML 1,000 ML IV STA (23:25)
--- NOTE | 2017-05-15 23:30 | EMERGENCY ROOM VISIT NOTE ---
History Report prepared by Javi: Abbie Zimmerman Under the Supervision of: Dr. Nicolle Coreas M.D. First contact with patient: 23:21 Chief Complaint: FEVER Stated Complaint: FEVER, COFFEE GROUND EMISIS History of Present Illness The patient is a 89 year old female who presents to the Emergency Room with complaints of a sudden fever tonight at 101.9. Per family, the patient was vomiting at 2130 tonight and her vomit looked like coffee ground. Per family, the patient's vomit did not have blood in it. Per family, the patient also had a large bowel movement tonight. Her family reports that the patient's blood pressure was also elevated tonight. Per family, the patient does not have a history of a GI bleed. Source of History: family Onset: tonight Position: other (global) Quality: other (fever) Timing: other (sudden ) Associated Symptoms: + vomiting Review of Systems See HPI for pertinent positives & negatives. A total of 10 systems reviewed and were otherwise negative. Past Medical & Surgical Medical Problems: (1) Chronic Kidney Disease, Unspecified (2) Dementia (3) Esophageal Reflux (4) Headache (5) Hypertension (6) Hypoxia (7) Open Wound Of Scalp (8) Rectal & Anal Hemorrhage (9) Rosacea (10) Shortness of breath (11) Sprain Lumbar Region (12) Varicose Vein Of Leg Nos (13) Vomiting Surgical Problems: (1) Right femoral shaft fracture Family History Diabetes mellitus Social History Smoking Status: Never Smoker Alcohol Use: none Drug Use: none Housing Status: correction Occupation Status: retired Current/Historical Medications Scheduled Amlodipine (Norvasc), 5 MG PO QAM Amoxicillin & Pot Clavulanate (Amoxicillin/Clavulanate P), 500 MG PO BIDM Azithromycin (Azithromycin), 250 MG PO DAILY Cholecalciferol (Vitamin D3), 2,000 UNITS PO DAILY Clonidine Hcl (Catapres), 0.1 MG PO QAM Ergocalciferol (Vitamin D 10122 Unit), 50,000 UNIT PO WK Folic Acid (Folvite), 1 MG PO DAILY Metoprolol Tartrate (Lopressor) (Lopressor), 12.5 MG PO BID Oseltamivir Phosphate (Tamiflu), 75 MG PO DAILY Paroxetine (Paxil), 20 MG PO DAILY Ranitidine (Zantac), 150 MG PO QAM Sennosides-Docusate Sodium (Senokot S), 2 TAB PO HS Scheduled PRN Acetaminophen (Tylenol Arthritis Ext Rel), 650 MG PO Q6H PRN for Pain or Fever Acetaminophen (Tylenol), 650 MG VA Q6H PRN for Pain or Fever Ipratropium-Albuterol (Duoneb), 3 ML INH Q6H PRN for SOB/Wheezing Loratadine (Claritin), 10 MG PO QAM PRN for ALLERGIC REACTION Polyethylene Glycol 3350 (Miralax), 17 GM PO DAILY PRN for Constipation Allergies Coded Allergies: Aspirin (Verified Allergy, Unknown, 01/01/17) ASA=NAUSEA NSAIDs (Verified Allergy, Unknown, `, 01/01/17) Physical Exam Vital Signs Date Time Temp Pulse Resp B/P (MAP) Pulse Ox O2 Delivery O2 Flow Rate FiO2 05/16/17 01:59 38.0 101 18 145/80 98 Room Air 05/16/17 00:54 107 16 155/85 96 Nasal Cannula 4.0 05/15/17 23:15 83 05/15/17 23:14 37.0 86 16 157/76 98 Nasal Cannula 4.0 Physical Exam Vital signs reviewed. Noted to be afebrile status-post Tylenol. General: Chronically ill female, thin, frail, pleasantly confused, in no significant distress. HEENT: No scleral icterus, PERRLA, neck supple. Atraumatic. Dried blood in mouth. Cardiovascular: Regular rate and rhythm, no extra sounds. Pulmonary: Diffuse crackles throughout all lung mary, normal work of breathing. Abdomen: Soft, nontender, nondistended, positive bowel sounds. Musculoskeletal: Atraumatic, no peripheral edema. Neurologic: Patient awake alert and oriented x 3 Skin: Warm, dry, no rash Rectal: Normal rectal mucosa. Guaiac negative brown stool. Medical Decision & Procedures ER Provider Diagnostic Interpretation: X-ray results as stated below per interpretation by me. CHEST ONE-VIEW PORTABLE: Question infiltrate of change at the right lower lung field along the cardiac border. Laboratory Results Test 05/15/17 23:48 05/15/17 23:50 05/16/17 00:12 05/16/17 00:50 Total Bilirubin 0.4 mg/dl (0.2-1) Direct Bilirubin < 0.1 mg/dl (0-0.2) Aspartate Amino Transf (AST/SGOT) 16 U/L (15-37) Alanine Aminotransferase (ALT/SGPT) 19 U/L (12-78) Alkaline Phosphatase 103 U/L (45-117) Total Protein 7.0 gm/dl (6.4-8.2) Albumin 3.2 gm/dl (3.4-5.0) Lipase 235 U/L (73-393) Influenza Type A Antigen Neg for Influ A (NEG) Influenza Type B Antigen Neg for Influ B (NEG) Bedside Troponin I < 0.030 ng/ml (0-0.045) Urine Color YELLOW Urine Appearance CLEAR (CLEAR) Urine pH 7.0 (4.5-7.5) Urine Specific [place] 1.017 (1.000-1.030) Urine Protein NEG (NEG) Urine Glucose (UA) NEG (NEG) Urine Ketones NEG (NEG) Urine Occult Blood NEG (NEG) Urine Nitrite NEG (NEG) Urine Bilirubin NEG (NEG) Urine Urobilinogen NEG (NEG) Urine Leukocyte Esterase NEG (NEG) Laboratory results per my review. Medications Administered Medications (Trade) Dose Ordered Sig/Kimmy Route Start Time Stop Time Status Last Admin Dose Admin Ondansetron HCl (Zofran Inj) 4 mg NOW STAT IV 05/15/17 23:25 05/15/17 23:29 DC 05/16/17 00:11 4 MG Sodium Chloride 1,000 ml @ 125 mls/hr Q8H STAT IV 05/15/17 23:25 05/16/17 04:55 DC 05/16/17 00:11 125 MLS/HR ECG Indication: vomiting Rate (beats per minute): 85 Rhythm: normal sinus Findings: PAC, no acute ischemic change ED Course 2324: Past medical records reviewed. The patient was evaluated in room A3. A complete history and physical examination was performed. 2325: Ordered Sodium Chloride 1,000 ml @ 125 mls/hr IV, Zofran Inj 4 mg IV. Medical Decision Differential Diagnoses Influenza, other viral illness, pneumonia, urinary tract infection, metabolic abnormality, medication effect, cellulitis, meningitis, intra-abdominal source, and GI bleed. This pt was evaluated and appeared to be in no distress. IV access was obtained and lab work was drawn. The etiology of the emesis is unclear. H/H is stable, guaiac negative from rectum. CXR is relatively clear to my interpretation. Pt was gently hydrated with NSS d/t prerenal state on lab work. There was no further vomiting with IV zofran in the ED. D/t advanced elderly state, reports of fever and coffee ground emesis, the pt will be evaluated by the hospitalist for further management. Medication Reconcilliation Current Medication List: was personally reviewed by me Blood Pressure Screening Patient's blood pressure: Elevated blood pressure Blood pressure disposition: Elevated BP felt to be situational Impression Primary Impression: Fever Additional Impression: Coffee ground emesis Scribe Attestation The scribe's documentation has been prepared under my direction and personally reviewed by me in its entirety. I confirm that the note above accurately reflects all work, treatment, procedures, and medical decision making performed by me. Departure Information Prescriptions Amoxicillin & Pot Clavulanate (AMOXICILLIN/CLAVULANATE P) 1 Tab Tab 500 MG PO BIDM for 5 Days, #9 TAB Prov: Shane Angeles MD 05/17/17 Azithromycin (Azithromycin) 250 Mg Tab 250 MG PO DAILY for 3 Days, #3 TAB Prov: Shane Angeles MD 05/17/17 Referrals [facility] (PCP) Patient Instructions My [facility] Health Problem Qualifiers Primary Impression: Fever Fever type: unspecified Qualified Codes: R50.9 - Fever, unspecified
[2017-05-16] MEDS ORDERED: ACET650S10 PR (00:13)
[2017-05-16] MEDS ORDERED: CHOL2000 PO (00:15)
[2017-05-16 00:19] LABS: BASO % 0.1 %; BASO ABS # 0.01 K/uL (0-0.2); EOS % 0.2 %; EOS ABS # 0.02 K/uL (0-0.5); HEMATOCRIT 32.9 % (37-47); HEMOGLOBIN 10.5 g/dL (12.0-16.0); IG# 0.03 K/uL (0.00-0.02); LYMPH ABS # 0.52 K/uL (1.2-3.4); MEAN CORPUSCULAR HEMOGLOBIN 27.8 pg (25-34); MEAN CORPUSCULAR HGB CONC 31.9 g/dl (32-36); MEAN PLATELET VOLUME 9.9 fL (7.4-10.4); MONO % 4.6 %; MONO ABS # 0.48 K/uL (0.11-0.59); NEUT % 89.8 %; NEUT ABS # 9.28 K/uL (1.4-6.5); PLATELET COUNT 306 K/uL (130-400); RED CELL DISTRIBUTION WIDTH CV 16.5 % (11.5-14.5); RED CELL DISTRIBUTION WIDTH SD 52.9 fL (36.4-46.3); WHITE BLOOD COUNT 10.34 K/uL (4.8-10.8)
[2017-05-16] MEDS ORDERED: ERGO500037 PO (00:19)
[2017-05-16] MEDS ORDERED: FOLI1TAB8 PO (00:21)
[2017-05-16] MEDS ORDERED: POLY335019 PO (00:25)
[2017-05-16] MEDS ORDERED: SENN-65 PO (00:30)
[2017-05-16] MEDS ORDERED: OSEL75CA23 PO (00:32)
[2017-05-16 00:38] LABS: ALBUMIN 3.2 gm/dl (3.4-5.0); ALT/SGPT 19 U/L (12-78); AST/SGOT 16 U/L (15-37); BLOOD UREA NITROGEN 33 mg/dl (7-18); CARBON DIOXIDE 25 mmol/L (21-32); CREATININE 1.63 mg/dl (0.60-1.20); GLUCOSE 161 mg/dl (70-99); LIPASE 235 U/L (73-393); POTASSIUM 4.2 mmol/L (3.5-5.1); SODIUM 137 mmol/L (136-145)
[2017-05-16 00:41] LABS: ALKALINE PHOSPHATASE 103 U/L (45-117)
[2017-05-16 00:56] LABS: INFLUENZA B ANTIGEN Neg for Influ B (NEG)
[2017-05-16] MEDS ORDERED: MAGNESIUM HYDROXIDE SUSP 30 ML UDC PO PRN (02:30)
[2017-05-16] MEDS ORDERED: HydrALAZINE HCL 20 MG/ML VIAL IV. PRN (02:30)
[2017-05-16] MEDS ORDERED: ALBUT/IPRATROP 3MG/0.5MG NEB 3 ML VIAL INH PRN (02:30)
[2017-05-16] MEDS ORDERED: ONDANSETRON INJ 2 MG/ML 2 ML VIAL IV PRN (02:30)
[2017-05-16] MEDS ORDERED: POLYETHYLENE (MIRALAX) 17 GM PACK PO PRN (02:30)
--- NOTE | 2017-05-16 03:30 | History and Physical ---
History & Physical Date & Time of Service: May 16, 2017 at 03:12 Chief Complaint: Fever, Coffee Ground Emisis Primary Care Physician: Duarte Angel History of Present Illness Source: patient, hospital records Patient is an 89 year old male with a past medical history of hypertension, chronic renal insufficiency, dysphagia, and depression that presents from [facility] after her family reports vomiting and fever. They state that her vomit had the appearance of coffee ground emesis and her fever was approximately 101.9. The patient was evaluated in the ED and found to have a questionable right lower lobe pneumonia. The patient was also hypoxic on arrival and required 2L of oxygen to maintain adequate O2 sats. After a dose of zofran the patient was very drowsy and unable to answer further questions. 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 Surgical Problems: (1) Right femoral shaft fracture Status: Resolved Family History Diabetes mellitus Social History Smoking Status: Never Smoker Smokeless Tobacco Use: No Alcohol Use: none Drug Use: none Housing status: long term Occupational Status: retired Immunizations History of Influenza Vaccine: Yes History of Tetanus Vaccine?: YES-[id number] History of Pneumococcal: Unknown History of Hepatitis B Vaccine: No Multi-Drug Resistant Organisms History of MDRO: No Allergies Coded Allergies: Aspirin (Verified Allergy, Unknown, 01/01/17) ASA=NAUSEA NSAIDs (Verified Allergy, Unknown, `, 01/01/17) Home Medications Scheduled Amlodipine (Norvasc), 5 MG PO QAM Cholecalciferol (Vitamin D3), 2,000 UNITS PO DAILY Clonidine Hcl (Catapres), 0.1 MG PO QAM Ergocalciferol (Vitamin D 79622 Unit), 50,000 UNIT PO WK Folic Acid (Folvite), 1 MG PO DAILY Metoprolol Tartrate (Lopressor) (Lopressor), 12.5 MG PO BID Oseltamivir Phosphate (Tamiflu), 75 MG PO DAILY Paroxetine (Paxil), 20 MG PO DAILY Ranitidine (Zantac), 150 MG PO QAM Scopolamine (Scopolamine), 1 PATCH TD Q72HRS Sennosides-Docusate Sodium (Senokot S), 2 TAB PO HS Scheduled PRN Acetaminophen (Tylenol Arthritis Ext Rel), 650 MG PO Q6H PRN for Pain or Fever Acetaminophen (Tylenol), 650 MG IN Q6H PRN for Pain or Fever Ipratropium-Albuterol (Duoneb), 3 ML INH Q6H PRN for SOB/Wheezing Loratadine (Claritin), 10 MG PO QAM PRN for ALLERGIC REACTION Polyethylene Glycol 3350 (Miralax), 17 GM PO DAILY PRN for Constipation Review of Systems Unable to obtain review of systems at this time due to patient being very drowsy and unable to answer questions Physical Exam Vital Signs Date Time Temp Pulse Resp B/P (MAP) Pulse Ox O2 Delivery O2 Flow Rate FiO2 05/16/17 03:00 113 22 155/88 96 Nasal Cannula 4.0 05/16/17 01:59 38.0 101 18 145/80 98 Room Air 05/16/17 00:54 107 16 155/85 96 Nasal Cannula 4.0 05/15/17 23:15 83 05/15/17 23:14 37.0 86 16 157/76 98 Nasal Cannula 4.0 General Appearance: no apparent distress, + thin Head: normocephalic, atraumatic ENT: + pertinent finding (dry mucous membranes) Neck: supple, no carotid bruits Respiratory/Chest: chest non-tender, no respiratory distress, no accessory muscle use, + pertinent finding (coarse breath sounds bilaterally) Cardiovascular: regular rate, rhythm, no edema, no gallop Abdomen/GI: normal bowel sounds, non tender, soft Neurologic/Psych: + pertinent finding (drowsy, will not respond to questions) Diagnostics Laboratory Results Results Past 24 Hours Test 05/15/17 23:48 05/15/17 23:50 05/16/17 00:12 05/16/17 00:50 Range/Units White Blood Count 10.34 4.8-10.8 K/uL Red Blood Count 3.78 4.2-5.4 M/uL Hemoglobin 10.5 12.0-16.0 g/dL Hematocrit 32.9 37-47 % Mean Corpuscular Volume 87.0 80-100 fL Mean Corpuscular Hemoglobin 27.8 25-34 pg Mean Corpuscular Hemoglobin Concent 31.9 32-36 g/dl Platelet Count 306 130-400 K/uL Mean Platelet Volume 9.9 7.4-10.4 fL Neutrophils (%) (Auto) 89.8 % Lymphocytes (%) (Auto) 5.0 % Monocytes (%) (Auto) 4.6 % Eosinophils (%) (Auto) 0.2 % Basophils (%) (Auto) 0.1 % Neutrophils # (Auto) 9.28 1.4-6.5 K/uL Lymphocytes # (Auto) 0.52 1.2-3.4 K/uL Monocytes # (Auto) 0.48 0.11-0.59 K/uL Eosinophils # (Auto) 0.02 0-0.5 K/uL Basophils # (Auto) 0.01 0-0.2 K/uL RDW Standard Deviation 52.9 36.4-46.3 fL RDW Coefficient of Variation 16.5 11.5-14.5 % Immature Granulocyte % (Auto) 0.3 % Immature Granulocyte # (Auto) 0.03 0.00-0.02 K/uL Sodium Level 137 136-145 mmol/L Potassium Level 4.2 3.5-5.1 mmol/L Chloride Level 103 98-107 mmol/L Carbon Dioxide Level 25 21-32 mmol/L Anion Gap 9.0 3-11 mmol/L Blood Urea Nitrogen 33 7-18 mg/dl Creatinine 1.63 0.60-1.20 mg/dl Est Creatinine Clear Calc Drug Dose 16.3 ml/min Estimated GFR () 32.0 Estimated GFR (Non- 27.6 BUN/Creatinine Ratio 20.2 10-20 Random Glucose 161 70-99 mg/dl Calcium Level 9.0 8.5-10.1 mg/dl Total Bilirubin 0.4 0.2-1 mg/dl Direct Bilirubin < 0.1 0-0.2 mg/dl Aspartate Amino Transf (AST/SGOT) 16 15-37 U/L Alanine Aminotransferase (ALT/SGPT) 19 12-78 U/L Alkaline Phosphatase 103 45-117 U/L Total Protein 7.0 6.4-8.2 gm/dl Albumin 3.2 3.4-5.0 gm/dl Lipase 235 73-393 U/L Influenza Type A Antigen Neg for Influ A NEG Influenza Type B Antigen Neg for Influ B NEG Bedside Troponin I < 0.030 0-0.045 ng/ml Urine Color YELLOW Urine Appearance CLEAR CLEAR Urine pH 7.0 4.5-7.5 Urine Specific [place] 1.017 1.000-1.030 Urine Protein NEG NEG Urine Glucose (UA) NEG NEG Urine Ketones NEG NEG Urine Occult Blood NEG NEG Urine Nitrite NEG NEG Urine Bilirubin NEG NEG Urine Urobilinogen NEG NEG Urine Leukocyte Esterase NEG NEG Microbiology Results 05/16/17 Blood Culture, Received Pending 05/15/17 Blood Culture, Received Pending other (questionable right lower lobe pneumonia) Impression Assessment and Plan Patient is an 89 year old male with a past medical history of hypertension, chronic renal insufficiency, dysphagia, and depression that presents from [facility] after her family reports vomiting and fever 1) Acute hypoxic respiratory failure - Community acquired pneumonia vs aspiration - Admit Med/Surg - Levaquin 750mg IV daily - Duonebs - Supplemental Oxygen as needed to maintain SpO2 > 90% - CXR: RLL Pneumonia - Aspiration precautions, NPO - IV NS at 80ml/hr - Daily CBC/ BMP 2) Vomiting - Zofran 4mg IV q6h PRN for nausea - NPO - Holding home PO medications 3) SAYRA 2/2 dehydration --> Patient appears dry on exam with BUN/Cr elevated from baseline - CKD with baseline creatinine of 1.3 --> Current Cr 1.6 - IV NS 4) Hypertension - Holding home PO Clonidine, Norvasc, and Metorpolol - Lopressor IV 5 mg q6h - PRN Hydralazine IV 10mg 5) Depression - Holding home Paxil 6) Constipation - Holding home Senna and Miralax 7) GERD - Hold home Zantac - IV Protonix 8) DVT Prophylaxis - SCDs 9) Code Status - Full Resuscitation Attending addendum: I have physically seen this patient, have supervised the medical residents activities, and agree with the H&P unless as otherwise noted. Assessment and Plan: Acute respiratory failure with hypoxia/recent vomiting with possible aspiration pneumonia right lower lobe-- Admit MedSurg Levaquin 750 mg IV daily Duonebs every 4 hours while awake and every 2 hours when necessary. Nasal cannula titrate to keep pulse ox greater than or equal to 92% Normal saline at 80 ML's per hour for mild SAYRA Serial laboratories BMP and magnesium levels Syncopal episode of vomiting/question of coffee grounds-- H&H better than last admission Nothing by mouth Zofran 4 mg IV every 6 hours when necessary Protonix 40 mg IV daily Serial H&H Hypertension-- Hold clonidine, Norvasc and metoprolol Lopressor 5 mg IV every 4 hours, hold for heart rate less than 60 or systolic blood pressure less than 110 Hydralazine 10 mg IV every 4 hours when necessary systolic blood pressure of 160 Level of Care Med/Surg Resuscitation Status FULL RESUSCITATION VTE Prophylaxis VTE Risk Assessment Done? Y/N: Yes Risk Level: Moderate Given or contraindicated: SCD's Social Service Consult Lives in Care Home Resident Tracking Resident Involvement: Resident Care Provided Care Provided: Adult Hospital Medicine
[2017-05-16 04:42] VITALS: BMI 17.5
[2017-05-16 04:44] VITALS: BP 126/75; PULSE 100; TEMP 37.5; O2SAT 98
[2017-05-16] MEDS ORDERED: INFLUENZA ADMINISTRATION CHARGE ONE (05:00)
[2017-05-16] MEDS ORDERED: PNEUMOCOCCAL POLYSACCHARIDES 25 MCG/0.5 ML VIAL/SYR IM. ONE (05:00)
[2017-05-16] MEDS ORDERED: PNEUMOCOCCAL ADMINISTRATION CHARGE ONE (05:00)
[2017-05-16] MEDS ORDERED: INFLUENZA VACCINE HIGH DOSE 65+ 0.5 ML SYR IM. ONE (05:00)
[2017-05-16] MEDS ORDERED: SODIUM CHLORIDE 0.9% 1000ML 1,000 ML IV SCH (05:30)
[2017-05-16] MEDS ORDERED: LEVOFLOXACIN CONSULT ACTIVE PRN (05:45)
[2017-05-16] MEDS ORDERED: METOPROLOL TARTRATE 1 MG/ML VIAL IV. SCH (06:00)
[2017-05-16] MEDS ORDERED: LEVOFLOXACIN / D5W 750 MG in PREMIXED IN D5W 150 ML IV SCH (06:00)
[2017-05-16 06:46] LABS: BASO % 0.1 %; BASO ABS # 0.01 K/uL (0-0.2); EOS % 0.1 %; EOS ABS # 0.01 K/uL (0-0.5); HEMATOCRIT 30.7 % (37-47); HEMOGLOBIN 9.7 g/dL (12.0-16.0); IG# 0.03 K/uL (0.00-0.02); LYMPH % 8.3 %; LYMPH ABS # 0.74 K/uL (1.2-3.4); MEAN CORPUSCULAR HEMOGLOBIN 27.5 pg (25-34); MEAN CORPUSCULAR HGB CONC 31.6 g/dl (32-36); MEAN PLATELET VOLUME 9.5 fL (7.4-10.4); MONO % 4.6 %; MONO ABS # 0.41 K/uL (0.11-0.59); NEUT % 86.6 %; NEUT ABS # 7.74 K/uL (1.4-6.5); PLATELET COUNT 274 K/uL (130-400); RED CELL DISTRIBUTION WIDTH CV 16.5 % (11.5-14.5); RED CELL DISTRIBUTION WIDTH SD 52.7 fL (36.4-46.3); WHITE BLOOD COUNT 8.94 K/uL (4.8-10.8)
--- NOTE | 2017-05-16 07:04 | DIAGNOSTIC IMAGING REPORT ---
CHEST ONE VIEW PORTABLE CLINICAL HISTORY: fever, cough, vomiting COMPARISON STUDY: 03/20/2017 FINDINGS: The heart is borderline enlarged. There is decreased interstitial prominence suggesting resolving congestive failure possibly superimposed on chronic lung disease.[ There is no acute parenchymal consolidation. There are no pleural effusions. IMPRESSION: Decreased interstitial prominence. This suggests improving congestive failure. No evidence of focal pulmonary consolidation Electronically signed by: Farhat Armstrong M.D. 05/16/2017 7:02 AM Dictated Date/Time: 05/16/2017 7:01 AM
[2017-05-16 07:27] LABS: CALCIUM 8.7 mg/dl (8.5-10.1); CREATININE 1.26 mg/dl (0.60-1.20); POTASSIUM 4.3 mmol/L (3.5-5.1)
[2017-05-16] MEDS: CLONIDINE HCL 0.1 MG TAB PO SCH (07:33)
[2017-05-16] MEDS: METOPROLOL TARTRATE 25 MG TAB PO SCH ×2 (07:33→20:00)
[2017-05-16] MEDS: AMLODIPINE BESYLATE 5 MG TAB PO SCH (07:33)
[2017-05-16 07:56] VITALS: BP 133/75; PULSE 123; TEMP 36; O2SAT 90
[2017-05-16] MEDS ORDERED: OSELTAMIVIR PHOSPHATE 75 MG CAP PO SCH (08:00)
--- NOTE | 2017-05-16 08:56 | DIAGNOSTIC IMAGING REPORT ---
SINGLE VIEW CHEST CLINICAL HISTORY: Dyspnea. FINDINGS: An AP, portable, upright chest radiograph is compared to study dated 05/15/2017. The examination is degraded by portable technique and patient rotation. The heart is enlarged and there is atherosclerotic calcification of the thoracic aorta. The pulmonary vasculature is noncongested. Chronic interstitial thickening is unchanged. Airspace opacities are identified at the right lung base. No large pleural effusion or pneumothorax is seen. A calcified granuloma is present at the right apex. The skeletal structures are osteopenic. The bony thorax is grossly intact. Degenerative change is seen throughout the thoracic spine. IMPRESSION: 1. Cardiomegaly without radiographic evidence of congestive failure. 2. There are increasing airspace opacities at the right lung base. This could represent atelectasis versus pneumonia/aspiration pneumonitis. Clinical correlation will be required. Electronically signed by: Lawrence Marcos M.D. 05/16/2017 8:55 AM Dictated Date/Time: 05/16/2017 8:53 AM
[2017-05-16] MEDS: RANITIDINE HCL 150 MG TAB PO SCH (08:59)
[2017-05-16] MEDS ORDERED: PANTOprazole INJ 40 MG in SYRINGE 0 ML IV SCH (11:00)
--- NOTE | 2017-05-16 11:45 | Family Medicine Progress Note ---
Progress Note Date of Service May 16, 2017. Subjective Pt evaluation today including: conversation w/ patient, physical exam, chart review, lab review, review of studies, review of inpatient medication list Patient was asleep when seen but easily woken up to voice. She is disorientated x3 but knows her date of . She denies any pain or shortness of breath. All Other Systems: Reviewed and Negative (Somewhat limited due to patient understanding) Medications Current Inpatient Medications Medications (Trade) Dose Ordered Sig/Kimmy Route Start Time Stop Time Status Last Admin Dose Admin Magnesium Hydroxide (Milk Of Magnesia Susp) 30 ml Q6H PRN PO 05/16/17 02:30 06/15/17 02:29 Polyethylene (Miralax Powder Packet) 17 gm DAILY PRN PO 05/16/17 02:30 06/15/17 02:29 Ondansetron HCl (Zofran Inj) 4 mg Q6H PRN IV 05/16/17 02:30 06/15/17 02:29 Albuterol/ Ipratropium (Duoneb) 3 ml Q6H PRN INH 05/16/17 02:30 06/15/17 02:29 Hydralazine HCl (HydrALAZINE INJ) 10 mg Q4 PRN IV. 05/16/17 02:30 06/15/17 02:29 Sodium Chloride 1,000 ml @ 80 mls/hr [id number] IV 05/16/17 05:30 06/15/17 05:29 05/16/17 05:10 80 MLS/HR Levofloxacin (Consult) 1 ea UD PRN N/A 05/16/17 05:45 06/15/17 05:44 Amlodipine Besylate (Norvasc Tab) 5 mg QAM PO 05/16/17 08:00 06/15/17 07:59 05/16/17 07:33 5 MG Clonidine HCl (Catapres Tab) 0.1 mg DAILY PO 05/16/17 08:00 06/15/17 07:59 05/16/17 07:33 0.1 MG Metoprolol Tartrate (Lopressor Tab) 12.5 mg BID PO 05/16/17 08:00 06/15/17 07:59 05/16/17 07:33 12.5 MG Oseltamivir Phosphate (Tamiflu Cap) 75 mg DAILY PO 05/16/17 08:00 05/20/17 07:59 05/16/17 08:59 75 MG Ranitidine HCl (zANTac TAB) 150 mg QAM PO 05/16/17 08:00 06/15/17 07:59 05/16/17 08:59 150 MG Levofloxacin 250 mg/Prmx 50 ml @ 50 mls/hr Q24H IV 05/17/17 06:00 05/22/17 06:59 Objective Vital Signs Date Time Temp Pulse Resp B/P (MAP) Pulse Ox O2 Delivery O2 Flow Rate FiO2 05/16/17 07:59 Nasal Cannula 4.0 05/16/17 07:56 36.0 123 20 133/75 (94) 90 Nasal Cannula 5.0 05/16/17 04:44 37.5 100 20 126/75 98 4.0 05/16/17 04:25 99 16 95 05/16/17 04:00 104 20 139/71 96 Nasal Cannula 4.0 05/16/17 03:25 37.0 05/16/17 03:00 113 22 155/88 96 Nasal Cannula 4.0 05/16/17 01:59 38.0 101 18 145/80 98 Room Air 05/16/17 00:54 107 16 155/85 96 Nasal Cannula 4.0 05/15/17 23:15 83 05/15/17 23:14 37.0 86 16 157/76 98 Nasal Cannula 4.0 Physical Exam General Appearance: no apparent distress Eyes: normal inspection ENT: pharynx normal Neck: supple, no JVD, trachea midline Respiratory/Chest: lungs clear, normal breath sounds (poor inspiratory effort) , no respiratory distress, no accessory muscle use Cardiovascular: regular rate, rhythm (quiet), no murmur Abdomen: normal bowel sounds, non tender, soft Extremities: no pedal edema, no calf tenderness, normal capillary refill, + pertinent finding (left wrist in splint (not removed)) Neurologic/Psychiatric: no motor/sensory deficits (grossly moving all 4 limbs) , alert, oriented x 3 Skin: normal color, warm/dry, no rash, + pertinent finding (areas of ecchymosis on upper limbs) Laboratory Results 05/16/17 06:27 Red Blood Count 3.53, Mean Corpuscular Volume 87.0, Mean Corpuscular Hemoglobin 27.5, Mean Corpuscular Hemoglobin Concent 31.6, Mean Platelet Volume 9.5, Neutrophils (%) (Auto) 86.6, Lymphocytes (%) (Auto) 8.3, Monocytes (%) (Auto) 4.6, Eosinophils (%) (Auto) 0.1, Basophils (%) (Auto) 0.1, Neutrophils # (Auto) 7.74, Lymphocytes # (Auto) 0.74, Monocytes # (Auto) 0.41, Eosinophils # (Auto) 0.01, Basophils # (Auto) 0.01 05/16/17 06:27 Test 05/15/17 23:48 05/15/17 23:50 05/16/17 00:12 05/16/17 00:50 Total Bilirubin 0.4 mg/dl (0.2-1) Direct Bilirubin < 0.1 mg/dl (0-0.2) Aspartate Amino Transf (AST/SGOT) 16 U/L (15-37) Alanine Aminotransferase (ALT/SGPT) 19 U/L (12-78) Alkaline Phosphatase 103 U/L (45-117) Total Protein 7.0 gm/dl (6.4-8.2) Albumin 3.2 gm/dl (3.4-5.0) Lipase 235 U/L (73-393) Influenza Type A Antigen Neg for Influ A (NEG) Influenza Type B Antigen Neg for Influ B (NEG) Bedside Troponin I < 0.030 ng/ml (0-0.045) Urine Color YELLOW Urine Appearance CLEAR (CLEAR) Urine pH 7.0 (4.5-7.5) Urine Specific [place] 1.017 (1.000-1.030) Urine Protein NEG (NEG) Urine Glucose (UA) NEG (NEG) Urine Ketones NEG (NEG) Urine Occult Blood NEG (NEG) Urine Nitrite NEG (NEG) Urine Bilirubin NEG (NEG) Urine Urobilinogen NEG (NEG) Urine Leukocyte Esterase NEG (NEG) Test 05/16/17 06:27 White Blood Count 8.94 K/uL (4.8-10.8) Red Blood Count 3.53 M/uL (4.2-5.4) Hemoglobin 9.7 g/dL (12.0-16.0) Hematocrit 30.7 % (37-47) Mean Corpuscular Volume 87.0 fL (80-100) Mean Corpuscular Hemoglobin 27.5 pg (25-34) Mean Corpuscular Hemoglobin Concent 31.6 g/dl (32-36) Platelet Count 274 K/uL (130-400) Mean Platelet Volume 9.5 fL (7.4-10.4) Neutrophils (%) (Auto) 86.6 % Lymphocytes (%) (Auto) 8.3 % Monocytes (%) (Auto) 4.6 % Eosinophils (%) (Auto) 0.1 % Basophils (%) (Auto) 0.1 % Neutrophils # (Auto) 7.74 K/uL (1.4-6.5) Lymphocytes # (Auto) 0.74 K/uL (1.2-3.4) Monocytes # (Auto) 0.41 K/uL (0.11-0.59) Eosinophils # (Auto) 0.01 K/uL (0-0.5) Basophils # (Auto) 0.01 K/uL (0-0.2) RDW Standard Deviation 52.7 fL (36.4-46.3) RDW Coefficient of Variation 16.5 % (11.5-14.5) Immature Granulocyte % (Auto) 0.3 % Immature Granulocyte # (Auto) 0.03 K/uL (0.00-0.02) Anion Gap 8.0 mmol/L (3-11) Est Creatinine Clear Calc Drug Dose 20.1 ml/min Estimated GFR () 43.7 Estimated GFR (Non- 37.7 BUN/Creatinine Ratio 20.3 (10-20) Calcium Level 8.7 mg/dl (8.5-10.1) Assessment and Plan Patient is an 89 year old male with a past medical history of hypertension, chronic renal insufficiency, dysphagia, and depression that presents from [facility] after her family reports vomiting and fever Acute hypoxic respiratory failure - secondary to community acquired pneumonia - Aim O2 saturation > 90% Community Acquired vs. aspiration pneumonia - speech and language consult - Switch antibiotics to Augmentin and azithromycin - aspiration precautions - Repeat CXR this morning to make sure no pulmonary edema with IV fluids, continue IV NS at 80ml/hr epnding XR results - Daily CBC/ BMP Vomiting - ? sec to - Zofran 4mg IV q6h PRN for nausea - NPO - Holding home PO medications SAYRA - dehydration - Baseline Cr 0.79 - Improving with IV fluids IV NS Hypertension - Continue home PO Clonidine, Norvasc, and Metorpolol - PRN Hydralazine IV 10mg Depression - Continue Paxil Chronic constipation - Monitor GERD - Continue home ranitidine VTE Prophylaxis - SCDs - heparin 5000 units SQ Q12H Code Status - Full Resuscitation Resident Tracking Resident Involvement: Resident Care Provided Care Provided: Adult Hospital Medicine Reviewed: Pt Seen/Exam by Me History comfortably laying in bed. breathing better no chest pain Constitutional: denies: fever Gastrointestinal/Abdominal: negative: abdominal pain General Appearance: no apparent distress Respiratory: no respiratory distress, decreased breath sounds Cardiovascular: regular rate, rhythm Neurologic/Psychiatric: alert, oriented x 3 Skin Characteristics: warm/dry Assessment/Plan Resident Physician Supervision Note: I independently interviewed and examined the patient and verified the peralta history and physical, reviewed labs and image studies, discussed the case with the resident Dr. Angeles and agree with the findings and care plan.
[2017-05-16] MEDS ORDERED: AMOXICILLIN/CLAVULANATE TAB 500 MG TAB PO ONE (12:00)
[2017-05-16] MEDS ORDERED: AZITHROMYCIN 250 MG TAB PO ONE (12:00)
[2017-05-16 14:23] VITALS: Ht 154.9 cm; Wt 42.1 kg
[2017-05-16 15:07] VITALS: BP 104/62; PULSE 68; TEMP 36.8; O2SAT 99
[2017-05-16] MEDS: AMOXICILLIN/CLAVULANATE TAB 500 MG TAB PO SCH (17:30)
[2017-05-16 21:00] VITALS: BP 97/58; PULSE 76
[2017-05-16] MEDS: HEPARIN SOD 5000 UNIT/0.5 ML CARP SQ SCH (21:11)
[2017-05-16 23:39] VITALS: BP 120/66; PULSE 72; TEMP 37.2; O2SAT 100
[2017-05-17] MEDS ORDERED: LEVOFLOXACIN 250MG / D5W IV SCH (06:00)
[2017-05-17 07:46] VITALS: BP 116/61; PULSE 74; TEMP 37.4; O2SAT 98
[2017-05-17] MEDS: AMOXICILLIN/CLAVULANATE TAB 500 MG TAB PO SCH (07:56)
[2017-05-17] MEDS: AMLODIPINE BESYLATE 5 MG TAB PO SCH (07:57)
[2017-05-17] MEDS: METOPROLOL TARTRATE 25 MG TAB PO SCH (07:57)
[2017-05-17] MEDS: RANITIDINE HCL 150 MG TAB PO SCH (07:57)
[2017-05-17] MEDS: CLONIDINE HCL 0.1 MG TAB PO SCH (07:57)
[2017-05-17] MEDS: HEPARIN SOD 5000 UNIT/0.5 ML CARP SQ SCH (08:00)
[2017-05-17] MEDS ORDERED: PAROXETINE 20 MG TAB PO SCH (08:00)
[2017-05-17] MEDS ORDERED: AZITHROMYCIN 250 MG TAB PO SCH (08:00)
[2017-05-17] MEDS ORDERED: OSELTAMIVIR PHOSPHATE SUSP 30 MG/5 ML UDP PO SCH (08:00)
[2017-05-17 14:37] VITALS: BP 116/61; PULSE 74; TEMP 37.4; O2SAT 98
[2017-05-17] MEDS ORDERED: AZIT-57 PO (15:18)
[2017-05-17] MEDS ORDERED: AMOX1TAB42 PO (15:18)
--- NOTE | 2017-05-17 15:36 | Discharge Instructions ---
Discharge Instructions Date of Service May 17, 2017. Admission Reason for Admission: Hypoxia, Vomitng Discharge Discharge Diagnosis / Problem: Vomiting, Aspiration Pneumonia Discharge Goals Goal(s): Decrease discomfort Activity Recommendations Activity Limitations: resume your previous activity . Instructions / Follow-Up Instructions / Follow-Up Driss Haley is a very pleasant 89 year old female unfortunately with severe dementia and recurrent aspirations. She was brought to the ER and subsequently admitted to [facility] from - 17 May 2017 due to fever and vomiting (possibly coffee ground). She was diagnosed and treated for an aspiration pneumonia and will continue on Augmentin and azithromycin as an outpatient. Her vomiting resolved by the morning without intervention and her Hgb was stable despite mention of coffee ground emesis therefore no further treatment was initiated regarding this. Speech and language evaluation recommended a moist pureed diet, Aspiration precautions: fully upright and alert/participating, alternating soft solids with liquids, monitor for oral pocketing, straws okay. She had one fever on admission but has now been afebrile for > 24 hours. She has required some oxygen to maintain her saturations > 94% and it is recommended she continues to wean at [place]. She was on 2L O2 on discharge. She is now medically stable for discharge. Recommend repeat hemoglobin in 1 week to make sure it is stable. Kind regards, Dr Shane Angeles Current Hospital Diet Patient's current hospital diet: Regular Diet Discharge Diet Recommended Diet: Regular Diet Diet Texture: Pureed (blended smooth) (moist) Pending Studies Studies pending at discharge: no Medical Emergencies . Who to Call and When: Medical Emergencies: If at any time you feel your situation is an emergency, please call 911 immediately. . Non-Emergent Contact Non-Emergency issues call your: Primary Care Provider . . "Provider Documentation" section prepared by Shane Angeles. . VTE Core Measure Inpt VTE Proph given/why not?: Unfractionated heparin SQ, SCD's
--- NOTE | 2017-05-17 15:37 | Discharge Summary ---
Discharge Summary Date of Service May 17, 2017. Discharge Summary Admission Date: May 16, 2017 at 02:50 Principal Diagnosis: Aspiration Pneumonia Problems/Secondary Diagnoses: Vomiting Severe dementia Dysphagia Immunizations: Have You Had Influenza Vaccine: Yes History of Tetanus Vaccine?: YES-2000 History of Pneumococcal: Unknown History of Hepatitis B Vaccine: No Medication Reconciliation New Medications: Amoxicillin & Pot Clavulanate (Amoxicillin/Clavulanate P) 1 Tab Tab 500 MG PO BIDM for 5 Days, #9 TAB Azithromycin (Azithromycin) 250 Mg Tab 250 MG PO DAILY for 3 Days, #3 TAB Continued Medications: Acetaminophen (Tylenol Arthritis Ext Rel) 650 Mg Cplt 650 MG PO Q6H PRN for Pain or Fever, CAP MAX APAP = 3GM /24HRS Acetaminophen (Tylenol) 650 Mg Supp 650 MG OK Q6H PRN for Pain or Fever Amlodipine (Norvasc) 5 Mg Tab 5 MG PO QAM, TAB Cholecalciferol (Vitamin D3) 2,000 Unit Cap 2000 UNITS PO DAILY Clonidine Hcl (Catapres) 0.1 Mg Tab 0.1 MG PO QAM, TAB Ergocalciferol (Vitamin D 84107 Unit) 50,000 Unit Cap 17339 UNIT PO WK, CAP EVERY SATURDAY Folic Acid (Folvite) 1 Mg Tab 1 MG PO DAILY, TAB Ipratropium-Albuterol (Duoneb) 3 Ml Nebu 3 ML INH Q6H PRN for SOB/Wheezing, INHA Loratadine (Claritin) 10 Mg Tab 10 MG PO QAM PRN for ALLERGIC REACTION, 0 Refills Metoprolol Tartrate (Lopressor) (Lopressor) 25 Mg Tab 12.5 MG PO BID, TAB Oseltamivir Phosphate (Tamiflu) 75 Mg Cap 75 MG PO DAILY for 10 Days BEGIN 05/10/17 X 10 DAYS. Paroxetine (Paxil) 20 Mg Tab 20 MG PO DAILY, TAB Polyethylene Glycol 3350 (Miralax) 1 Pow Pow 17 GM PO DAILY PRN for Constipation Ranitidine (Zantac) 150 Mg Tab 150 MG PO QAM, TAB Sennosides-Docusate Sodium (Senokot S) 1 Tab Tab 2 TAB PO HS Discontinued Medications: Scopolamine (Scopolamine) 1 Mg/3 Days Dis 1 PATCH TD Q72HRS Discharge Exam Patient alert but remains disorientated. She denies any difficulty breathing or chest pain. No acute events overnight. 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 She was brought to the ER and subsequently admitted to [facility] from - 17 May 2017 due to fever and vomiting (possibly coffee ground). She was diagnosed and treated for an aspiration pneumonia and will continue on Augmentin and azithromycin as an outpatient. Her vomiting resolved by the morning without intervention and her Hgb was stable despite mention of coffee ground emesis therefore no further treatment was initiated regarding this. Speech and language evaluation recommended a moist pureed diet, Aspiration precautions: fully upright and alert/participating, alternating soft solids with liquids, monitor for oral pocketing, straws okay. She had one fever on admission but has now been afebrile for > 24 hours. She has required some oxygen to maintain her saturations > 94% and it is recommended she continues to wean at [facility]. She was on 2L O2 on discharge. She is now medically stable for discharge. Recommend repeat hemoglobin in 1 week to make sure it is stable. Total Time Spent: Greater than 30 minutes This includes examination of the patient, discharge planning, medication reconciliation, and communication with other providers. Discharge Instructions Please refer to the electronic Patient Visit Report (Discharge Instructions) for additional information. Additional Copies To [facility] Reviewed: Pt Seen/Exam by Me History breathing much improved Constitutional: denies: fever Respiratory: negative: short of breath Cardiovascular: denies chest pain General Appearance: no apparent distress Respiratory: no respiratory distress, decreased breath sounds Cardiovascular: regular rate, rhythm Gastrointestinal: soft Neurologic/Psychiatric: alert Skin Characteristics: warm/dry Assessment/Plan Resident Physician Supervision Note: I independently interviewed and examined the patient and verified the peralta history and physical, reviewed labs and image studies, discussed the case with the resident Dr. Angeles and agree with the findings and care plan. Time spent in discharge 35 min
== END 2017-05-17 17:45 | DRG 177 ==
LOC: EDBD 23:07 → C.EDA 23:09 → C.4E 05-16 02:50 → ENRESERV 05-16 04:08
PROVIDERS: ADMIT Student in an Organized Health Care Education/Training Program; ATTEND Family Medicine
DX: J69.0 Pneumonitis due to inhalation of food and vomit (principal); J96.01 Acute respiratory failure with hypoxia; Z68.1 Body mass index [BMI] 19.9 or less, adult; R13.10 Dysphagia, unspecified; R11.10 Vomiting, unspecified; F03.90 Unspecified dementia, unspecified severity, without behavioral disturbance, psychotic disturbance, mood disturbance, and anxiety; E86.0 Dehydration; K21.9 Gastro-esophageal reflux disease without esophagitis; N18.9 Chronic kidney disease, unspecified; I12.9 Hypertensive chronic kidney disease with stage 1 through stage 4 chronic kidney disease, or unspecified chronic kidney disease; F32.9 Major depressive disorder, single episode, unspecified; K59.09 Other constipation; Z79.899 Other long term (current) drug therapy; Z66 Do not resuscitate; Z83.3 Family history of diabetes mellitus